=== PATIENT | female | born 1945 | race Caucasian/White ===

== ENCOUNTER → 2016-11-27 | Outpatient (CLI) | payer MEDICARE, OTHER ==
[~2016-11-27] MED LIST: ADVA250A INH; ALBU0.08 NEB; AMLO5TAB2 PO; ASPI1TAB69 PO; CITA20TA4 PO; CYAN1000P IM; DICL1GEL TOPICAL; GABA300C5 PO; GINS100C2 PO; LOVA40TA PO; METO50TA PO; MULT1TAB84 PO; NITR0.4S SL; OMEP40CA2 PO; TIOT12.9 INH; TIOT1AER2 INH
--- NOTE | 2016-12-02 10:13 | RSPPFT ---
DATE OF PROCEDURE: 11/27/16 COMMENTS: Spirometry with FVC of 2.2 predicted 2.9, FEV1 of 1.1 predicted 2.2, FEV1/FVC ratio 51% predicted 77%. No significant changes noted post-bronchodilator acutely. IMPRESSION: On the basis of the above, patient has a moderately severe obstructive lung defect.
== END ==
LOC: HRSP 11-04 12:05
PROVIDERS: ATTEND Family Medicine
DX: J45.909 Unspecified asthma, uncomplicated (principal)
CPT/HCPCS: 94060

== ENCOUNTER 2017-08-28 10:25 | Inpatient (IN) | payer MEDICARE, OTHER ==
[2017-08-28] VITALS (9 sets, daily range): BP systolic 110–144; BP diastolic 55–78; PULSE 61–79; RESP 14–18; TEMP 97.8–98.1; O2SAT 94–97
[~2017-08-28] VITALS: Ht 167.6 cm; Wt 86.0 kg
[~2017-08-28 10:25] MED LIST changes: +MELO15TA20 PO; +MELO7.5T27 PO; -TIOT12.9 INH
--- NOTE | 2017-08-28 11:07 | PD ---
HPI Chief Complaint: Neuro Symptoms/ Deficits Time Seen by Provider: 10:58 Travel History International Travel<30 days: No Contact w/Intl Traveler<30days: No Traveled to known affect area: No History of Present Illness HPI ONGOING INTERMITTENTLY SINCE THURSDAY IS A TINGLY SENSATION TO RIGHT UE, ALONG WITH "FACIAL DROOP" PER DAUGHTER, WHICH RESOLVED, BUT THE TINGLY SENSATION TO RUE HAS BECOME MORE FREQUENT. NO SLURRED SPEECH. PATIENT SEEN AT URGENT CARE 3 DAYS AGO AND DX WITH PNA AND GIVEN LEVAQUIN TO TREAT. PATIENT ALSO STATES RLE PAIN/TINGLY SENSATION WELL PATIENT STATES THAT HER COUGH/RESPIRATORY SYMPTOMS ARE IMPROVING BUT NOT HER RIGHT SIDED TINGLING SENSATIONS THAT HAVE CONTINUED TO OCCUR INTERMITTENTLY AND NON SUSTAINED.....PATIENT ABLE TO AMBULATE WITH ASSISTANCE.PER DAUGHTER DURING THESE SYMPTOMS OF TINGLING, THE PATIENT ALSO BECOMES CONFUSED, SEEMS TO HAVE A HARD TIME FINDING WORDS, NO SLURRED SPEECH NOTED. SEEN BY PCP AND SENT TO ER FOR TIA WORKUP/ADMISSION Past Medical History Hyperlipidemia CAD HTN COPD Vitamin B12 deficiency secondary to gastric bypass GERD Esophageal dysmotility (via gastric emptying study 2015) Surgeries Coronary stent - 2008 Gastric bypass - 1998 Right knee joint replacement - 2002 Right lower extremity venous stripping Pacemaker PFSH Past Medical History Hx Anticoagulant Therapy: Yes (asa) Arthritis: Yes Asthma: Yes Anxiety: Yes Depression: Yes Cancer: No Cardiac Catheterization: Yes Cardiovascular Problems: Yes (CAD) High Cholesterol: Yes Chest Pain: Yes Cerebrovascular Accident: Yes (? TIA) Coronary Artery Disease: Yes Diabetes: No Diminished Hearing: No Endocrine: No Gastrointestinal Disorders: No GERD: Yes Genitourinary: No Hypertension: Yes Immune Disorder: No Musculoskeletal: No Neurologic: No Psychiatric: Yes Reproductive: No Respiratory: No Myocardial Infarction: No : 5 Para: 2 Ectopic : Yes Past Surgical History Abdominal Surgery: Yes (GASTRIC BYPASS) Appendectomy: Yes Cardiac Surgery: Yes (CARDIAC STENT ) Cholecystectomy: Yes Coronary Stent: Yes (X1) Gynecologic Surgery: Yes (ECTOPIC PREG. SURGERY) Social History Alcohol Use: No Tobacco Use: No Substance Use: No Allergies-Medications (Allergen,Severity, Reaction): Coded Allergies: lisinopril (Unverified Allergy, Severe, 08/28/17) Reported Meds & Prescriptions Reported Meds & Active Scripts Active Citalopram (Citalopram Hydrobromide) 20 Mg Tab 20 Mg PO DAILY Albuterol Neb (Albuterol Sulfate) 2.5 Mg/3 Ml Neb 2.5 Mg NEB Q4HR NEB PRN Cyanocobalamin Inj (Cyanocobalamin) 1,000 Mcg/Ml Inj 1,000 Mcg IM Q30D Metoprolol Tartrate 50 Mg Tab 50 Mg PO BID Amlodipine (Amlodipine Besylate) 5 Mg Tab 5 Mg PO DAILY Reported Levaquin (Levofloxacin) 750 Mg Tablet 750 Mg PO DAILY Aspirin 81 Mg Chew 81 Mg CHEW DAILY Multiple Vitamin 1 Tab 1 Tab PO DAILY Lovastatin 40 Mg Tab 40 Mg PO DAILY Nitrostat SL (Nitroglycerin) 0.4 Mg Subl 0.4 Mg SL DIRECTED PRN ONE TABLET UNDER THE TONGUE NEEDED FOR CHEST PAIN, MAY REPEAT EVERY FIVE MINUTES FOR A TOTAL OF 3 DOSES OR CALL 911 IF NO RELIEF Review of Systems Except as stated in HPI: all other systems reviewed are Neg General / Constitutional: No: Fever Eyes: No: Visual changes HENT: No: Headaches Cardiovascular: No: Chest Pain or Discomfort Respiratory: No: Shortness of Breath Gastrointestinal: No: Abdominal Pain Genitourinary: No: Dysuria Musculoskeletal: No: Pain Skin: No Rash Neurologic: Positive: Paresthesia Psychiatric: No: Depression Endocrine: No: Polydipsia Hematologic/Lymphatic: No: Easy Bruising Physical Exam Narrative GENERAL: SKIN: Warm and dry. HEAD: Atraumatic. Normocephalic. EYES: Pupils equal and round. No scleral icterus. No injection or drainage. ENT: No nasal bleeding or discharge. Mucous membranes pink and moist. NECK: Trachea midline. No JVD. CARDIOVASCULAR: Regular rate and rhythm. RESPIRATORY: No accessory muscle use. Clear to auscultation. Breath sounds equal bilaterally. GASTROINTESTINAL: Abdomen soft, non-tender, nondistended. MUSCULOSKELETAL: Extremities without clubbing, cyanosis, or edema. No obvious deformities. NEUROLOGICAL: Awake and alert. No obvious cranial nerve deficits. Motor grossly within normal limits. Five out of 5 muscle strength in the arms and legs (RIGHT SIDED DECREASED ROM LARGELY DUE TO PAIN AND DISCOMFORT). Normal speech. PSYCHIATRIC: Appropriate mood and affect; insight and judgment normal. Data Data Last Documented VS Vital Signs Date Time Temp Pulse Resp B/P (MAP) Pulse Ox O2 Delivery O2 Flow Rate FiO2 08/28/17 11:18 61 16 114/55 (74) 96 08/28/17 10:28 97.8 Orders Orders Electrocardiogram (08/28/17 11:11) Complete Blood Count With Diff (08/28/17 11:11) Comprehensive Metabolic Panel (08/28/17 11:11) B-Type Natriuretic Peptide (08/28/17 11:11) Troponin I (08/28/17 11:11) Act Partial Throm Time (Ptt) (08/28/17 11:11) Prothrombin Time / Inr (Pt) (08/28/17 11:11) Chest, Single Ap (08/28/17 11:11) Ct Brain W/O Iv Contrast(Rout) (08/28/17 11:11) Ecg Monitoring (08/28/17 11:11) Iv Access Insert/Monitor (08/28/17 11:11) Oximetry (08/28/17 11:11) Sodium Chloride 0.9% Flush (Ns Flush) (08/28/17 11:15) Us Leg Venous Doppler (08/28/17 11:11) Admit Order (Ed Use Only) (08/28/17 14:26) Labs Laboratory Tests Test 08/28/17 11:30 White Blood Count 3.8 TH/MM3 Red Blood Count 4.47 MIL/MM3 Hemoglobin 12.7 GM/DL Hematocrit 38.4 % Mean Corpuscular Volume 85.9 FL Mean Corpuscular Hemoglobin 28.5 PG Mean Corpuscular Hemoglobin Concent 33.2 % Red Cell Distribution Width 14.2 % Platelet Count 166 TH/MM3 Mean Platelet Volume 9.3 FL Neutrophils (%) (Auto) 68.6 % Lymphocytes (%) (Auto) 21.0 % Monocytes (%) (Auto) 9.6 % Eosinophils (%) (Auto) 0.7 % Basophils (%) (Auto) 0.1 % Neutrophils # (Auto) 2.6 TH/MM3 Lymphocytes # (Auto) 0.8 TH/MM3 Monocytes # (Auto) 0.4 TH/MM3 Eosinophils # (Auto) 0.0 TH/MM3 Basophils # (Auto) 0.0 TH/MM3 CBC Comment DIFF FINAL Differential Comment Prothrombin Time 10.5 SEC Prothromb Time International Ratio 1.0 RATIO Activated Partial Thromboplast Time 24.0 SEC Blood Urea Nitrogen 22 MG/DL Creatinine 0.78 MG/DL Random Glucose 89 MG/DL Total Protein 6.7 GM/DL Albumin 3.4 GM/DL Calcium Level 8.4 MG/DL Alkaline Phosphatase 94 U/L Aspartate Amino Transf (AST/SGOT) 26 U/L Alanine Aminotransferase (ALT/SGPT) 15 U/L Total Bilirubin 0.4 MG/DL Sodium Level 138 MEQ/L Potassium Level 4.7 MEQ/L Chloride Level 102 MEQ/L Carbon Dioxide Level 28.7 MEQ/L Anion Gap 7 MEQ/L Estimat Glomerular Filtration Rate 72 ML/MIN Troponin I 0.27 NG/ML B-Type Natriuretic Peptide 326 PG/ML [facility] Medical Decision Making Medical Screen Exam Complete: Yes Emergency Medical Condition: Yes Medical Record Reviewed: Yes Interpretation(s) PACED RHYTHM, NONSPEC STT CHANGES Differential Diagnosis TIA V CVA V DVT V ATYPICAL STEMI V NEUROPATHY V RADICULOPATHY Narrative Course le edema is neg for dvt per ultrasound, ct brain neg ich nor any subacute findings considering symptoms going on for several days....negative troponin and nondiagnostic ekg....patient will be admitted for further evaluation Diagnosis Primary Impression: RIGHT SIDED PARESTHESIA R/O TIA Admitting Information Admitting Physician Requests: Observation Scripts Azithromycin (Azithromycin) 500 Mg Tab 500 MG PO DAILY for Infection, #5 TAB 0 Refills Prov: Brian Menard MD, R3 09/01/17 Ipratropium-Albuterol Neb (Duoneb) 0.5-2.5 Mg/3 Ml Neb 1 NEBULE INH Q4HR NEB for Breathing Treatment, #180 NEBULE 0 Refills Prov: Brian Menard MD, R3 09/01/17 Prednisone (Prednisone) 20 Mg Tab 20 MG PO BID, #14 TAB 0 Refills Prov: Brian Menard MD, R3 09/01/17 Tiotropium Inh (Spiriva Respimat Inh) 1.25 Mcg/Act Aero 2 PUFF INH DAILY for Asthma Management, #1 INHALER 5 Refills 1.25 mcg = 1 inhalation Prov: Brian Menard MD, R3 09/01/17 Fluticasone-Salmeterol Inh (Advair Diskus Inh) 250-50 Mcg/Blist Aer 1 PUFF INH BID, #1 INHALER 5 Refills Rinse mouth after use. Prov: Brian Menard MD, R3 09/01/17 Robert Lainez MD Aug 28, 2017 11:07
[2017-08-28] MEDS ORDERED: SODIUM CHLORIDE 0.9% FLUSH 10 ML FLUSH IVF PRN (11:15)
[2017-08-28] MEDS ORDERED: CITA20TA4 PO (11:23)
[2017-08-28] MEDS ORDERED: LEVA750T9 PO (11:23)
[2017-08-28] MEDS ORDERED: ADVA250A INH (11:23)
[2017-08-28] MEDS ORDERED: ASPI-516 CHEW (11:23)
[2017-08-28] MEDS ORDERED: MULTTAB67 PO (11:23)
--- NOTE | 2017-08-28 11:40 | RADRPT ---
EXAM DATE/TIME: 08/28/2017 11:17 [facility] COMPARISON: No previous studies available for comparison. INDICATIONS : Right side pain x 1 week. MEDICAL HISTORY : pneumonia SURGICAL HISTORY : Coronary artery stent. Pacemaker. ENCOUNTER: Initial ACUITY: 1 week PAIN SCORE: 8/10 LOCATION: Right chest FINDINGS: Pacemaker left chest. Minimal constant cardiomegaly. No infiltrate. No pneumothorax. No rib fract ure. CONCLUSION: Pacer otherwise negative. Hector Rodríguez MD FACR on August 28, 2017 at 11:37 Board Certified Radiologist. This report was verified electronically.
[2017-08-28 11:48] LABS: AUTOMATED NEUTROPHIL # 2.6 TH/MM3 (1.8-7.7); BASOPHIL % 0.1 % (0.0-2.0); EOSINOPHIL % 0.7 % (0.0-4.0); HEMATOCRIT 38.4 % (35.0-46.0); HEMOGLOBIN 12.7 GM/DL (11.6-15.3); LYMPHOCYTE # 0.8 TH/MM3 (1.0-4.8); MEAN CELL VOLUME 85.9 FL (80.0-100.0); MEAN CORPUSCULAR HEMOGLOBIN 28.5 PG (27.0-34.0); MEAN CORPUSCULAR HGB CONC 33.2 % (32.0-36.0); MEAN PLATELET VOLUME 9.3 FL (7.0-11.0); MONO % 9.6 % (0.0-8.0); MONOCYTE # 0.4 TH/MM3 (0-0.9); NEUT % 68.6 % (16.0-70.0); PLATELET COUNT 166 TH/MM3 (150-450); RED BLOOD COUNT 4.47 MIL/MM3 (4.00-5.30); RED CELL DISTRIBUTION WIDTH 14.2 % (11.6-17.2); WHITE BLOOD COUNT 3.8 TH/MM3 (4.0-11.0)
[2017-08-28 11:58] LABS: PROTHROMBIN TIME - PATIENT 10.5 SEC (9.8-11.6)
--- NOTE | 2017-08-28 12:07 | RADRPT ---
EXAM DATE/TIME: 08/28/2017 11:31 [facility] COMPARISON: No previous studies available for comparison. INDICATIONS : Right leg pain and swelling. MEDICAL HISTORY : Hypercholesterolemia. Hypertension. Gastroesophageal reflux disease. Coronary artery disease. Darell darnell bypass. SURGICAL HISTORY : Appendectomy. Cholecystectomy. Cardiac stent. Ectopic surgery. Right total knee replaceme nt. ENCOUNTER: Initial ACUITY: 1 day PAIN SCORE: 0/10 LOCATION: Right arm. TECHNIQUE: Venous ultrasound of the leg was performed from the inguinal ligament to the proximal calf. Real-luci e, color Doppler and spectral tracing, compression and augmentation techniques were used. FINDINGS: There is normal compressibility of the deep venous system from the inguinal region to the proximal ca lf. No echogenic clot is seen in the lumen of the common femoral, femoral, popliteal, and posterior tibial veins. There is a normal response of the venous system to proximal and distal augmentation an d respiration. CONCLUSION: Negative for deep venous thrombosis. Hector Rodríguez MD FACR on August 28, 2017 at 12:04 Board Certified Radiologist. This report was verified electronically.
[2017-08-28 12:12] LABS: ALBUMIN 3.4 GM/DL (3.4-5.0); ALT (GPT) 15 U/L (10-53); AST (GOT) 26 U/L (15-37); BICARBONATE 28.7 MEQ/L (21.0-32.0); BLOOD UREA NITROGEN 22 MG/DL (7-18); CALCIUM 8.4 MG/DL (8.5-10.1); CHLORIDE 102 MEQ/L (98-107); CREATININE 0.78 MG/DL (0.50-1.00); GLOMERULAR FILTRATION RATE 72 ML/MIN (>89); GLUCOSE,RANDOM 89 MG/DL (74-106); SODIUM (NA) 138 MEQ/L (136-145)
[2017-08-28 12:16] LABS: ALKALINE PHOSPHATASE 94 U/L (45-117); TOTAL BILIRUBIN ADULT 0.4 MG/DL (0.2-1.0); TOTAL PROTEIN 6.7 GM/DL (6.4-8.2); TROPONIN I 0.27 NG/ML (0.02-0.05)
--- NOTE | 2017-08-28 12:30 | RADRPT ---
EXAM DATE/TIME: 08/28/2017 12:07 [facility] COMPARISON: No previous studies available for comparison. INDICATIONS : Dizziness. RADIATION DOSE: 56.35 CTDIvol (mGy) MEDICAL HISTORY : Cardiovascular disease. Cardiovascular disease Hypertension. SURGICAL HISTORY : Appendectomy. Cholecystectomy. ENCOUNTER: Initial ACUITY: 1 day PAIN SCALE: 0/10 LOCATION: cranial TECHNIQUE: Multiple contiguous axial images were obtained of the head. Using automated exposure control and adj ustment of the mA and/or kV according to patient size, radiation dose was kept as low as reasonably a chievable to obtain optimal diagnostic quality images. DICOM format image data is available electro nically for review and comparison. FINDINGS: CEREBRUM: The ventricles are normal for age. No evidence of midline shift, mass lesion, hemorrhage or acute in farction. No extra-axial fluid collections are seen. POSTERIOR FOSSA: The cerebellum and brainstem are intact. The 4th ventricle is midline. The cerebellopontine angle i s unremarkable. EXTRACRANIAL: The visualized portion of the orbits is intact. SKULL: The calvaria is intact. No evidence of skull fracture. CONCLUSION: No acute disease. Hector Rodríguez MD FACR on August 28, 2017 at 12:27 Board Certified Radiologist. This report was verified electronically.
--- NOTE | 2017-08-28 14:26 | HHI.HP ---
[facility] Service Family Medicine Primary Care Physician Dr. Sherman Admission Diagnosis Diagnoses: International Travel<30 Days: No Contact w/Intl Traveler<30days: No Known Affected Area: No History of Present Illness Patient is a 72-year-old female with history significant for CAD, COPD. Present here today after seeing her PCP in the clinic due to concerns for possible TIA. History obtained from both daughter and patient. On 08/30 patient developed right shoulder pain that radiated to the right side of abdomen right leg and resolved after 5 minutes. Associated with nausea but no vomiting. She felt like she was going to pass out but did not. Daughter did give her nitroglycerin which caused the headache after the event. After the visit, she was completely asymptomatic but continued to have right shoulder pain that radiated to her hand. The same symptoms reoccurred the following day and again lasted for 5 minutes. However on 08/25, patient had recurrence of the same symptoms but this lasted for 30 minutes and was associated with confusion. Daughter also reported right lower face drooping very mildly and slightly slurred speech. There was no associated vision changes. Symptoms completely resolved after this episode. During this episode, she did go to the ED but was diagnosed with pneumonia and given Levaquin. Last reported episode was yesterday but no episodes today. No associated chest pain, SOB, or vomiting. Does endorse increased fatigue during usual activities around the house. Review of Systems Constitutional: DENIES: Fever, Chills Endocrine: COMPLAINS OF: Abnorml menstrual pattern (set up to see AUDIO VISUAL [employer] DIRECTOR soon) Eyes: DENIES: Blurred vision Ears, nose, mouth, throat: DENIES: Throat pain, Running Nose Respiratory: COMPLAINS OF: Cough, DENIES: Shortness of breath Cardiovascular: DENIES: Chest pain Gastrointestinal: COMPLAINS OF: Abdominal pain, Nausea, DENIES: Constipation, Diarrhea, Vomiting Genitourinary: DENIES: Dysuria Integumentary: DENIES: Rash Neurologic: DENIES: Speech Problems Psychiatric: DENIES: Depression, Suicidal Ideation Past Family Social History Past Medical History Hyperlipidemia CAD (nuclear stress test December 2015 normal) HTN COPD * PFTs 12/02/16: FEV1/FVC ratio 51% and no changes post-bronchodilator --> moderately severe obstructive lung defect Vitamin B12 deficiency secondary to gastric bypass Overactive bladder GERD Esophageal dysmotility (via gastric emptying study 2015) Asthma Depression CARMENZA Past Surgical History Surgeries Coronary stent - 2008 Gastric bypass - 1998 Right knee joint replacement - 2002 Right lower extremity venous stripping Pacemaker Reported Medications Reported Meds & Active Scripts Active Citalopram (Citalopram Hydrobromide) 20 Mg Tab 20 Mg PO DAILY Spiriva Respimat Inh (Tiotropium Inh) 1.25 Mcg/Act Aero 2 Puff INH DAILY 1.25 mcg = 1 inhalation Albuterol Neb (Albuterol Sulfate) 2.5 Mg/3 Ml Neb 2.5 Mg NEB Q4HR NEB PRN Cyanocobalamin Inj (Cyanocobalamin) 1,000 Mcg/Ml Inj 1,000 Mcg IM Q30D Metoprolol Tartrate 50 Mg Tab 50 Mg PO BID Amlodipine (Amlodipine Besylate) 5 Mg Tab 5 Mg PO DAILY Advair Diskus Inh (Fluticasone-Salmeterol Inh) 250-50 Mcg/Blist Aer 1 Puff INH BID Rinse mouth after use. Reported Levaquin (Levofloxacin) 750 Mg Tablet 750 Mg PO DAILY Aspirin 81 Mg Chew 81 Mg CHEW DAILY Multiple Vitamin 1 Tab 1 Tab PO DAILY Lovastatin 40 Mg Tab 40 Mg PO DAILY Nitrostat SL (Nitroglycerin) 0.4 Mg Subl 0.4 Mg SL DIRECTED PRN ONE TABLET UNDER THE TONGUE NEEDED FOR CHEST PAIN, MAY REPEAT EVERY FIVE MINUTES FOR A TOTAL OF 3 DOSES OR CALL 911 IF NO RELIEF Allergies: Coded Allergies: lisinopril (Unverified Allergy, Severe, 08/28/17) Family History Father: from war, healthy family Mother: at 88, Alzheimer's Brother - healthy 2 Children - healthy Social History Lives in [place] with , daughter, and son-in-law EtOH - denies Tobacco - quit 30 years ago Illicit Drugs - denies Physical Exam Vital Signs Vital Signs Date Time Temp Pulse Resp B/P (MAP) Pulse Ox O2 Delivery O2 Flow Rate FiO2 08/28/17 11:18 61 16 114/55 (74) 96 08/28/17 10:28 97.8 74 16 110/74 (86) 97 Physical Exam GENERAL: This is a well-nourished, well-developed patient, in no apparent distress. Resting comfortably in bed and speaking in complete sentences. SKIN: No rashes, ecchymoses or lesions. Cool and dry. HEAD: Atraumatic. Normocephalic. No temporal or scalp tenderness. EYES: Pupils equal round and reactive. Extraocular motions intact. No scleral icterus. No injection or drainage. ENT: Throat without erythema, tonsillar hypertrophy or exudate. Uvula midline. Airway patent. NECK: No JVD or lymphadenopathy. Supple, nontender CARDIOVASCULAR: Regular rate and rhythm without murmurs, gallops, or rubs. RESPIRATORY: Coarse breath sounds and wheezing bilaterally. GASTROINTESTINAL: Abdomen soft, non-tender, nondistended. No hepato-splenomegaly , or palpable masses. No guarding. MUSCULOSKELETAL: Extremities without clubbing, cyanosis, or edema.No calf tenderness. * No obvious swelling, ecchymosis, erythema right shoulder. Pain with palpation around shoulder. No crepitus present. NEUROLOGICAL: Awake and alert. Cranial nerves II through XII intact (excluding CN XI). [id number] normal. Motor and sensory grossly within normal limits. Five out of 5 muscle strength in all muscle groups. Normal speech. Laboratory Laboratory Tests Test 08/28/17 11:30 White Blood Count 3.8 Red Blood Count 4.47 Hemoglobin 12.7 Hematocrit 38.4 Mean Corpuscular Volume 85.9 Mean Corpuscular Hemoglobin 28.5 Mean Corpuscular Hemoglobin Concent 33.2 Red Cell Distribution Width 14.2 Platelet Count 166 Mean Platelet Volume 9.3 Neutrophils (%) (Auto) 68.6 Lymphocytes (%) (Auto) 21.0 Monocytes (%) (Auto) 9.6 Eosinophils (%) (Auto) 0.7 Basophils (%) (Auto) 0.1 Neutrophils # (Auto) 2.6 Lymphocytes # (Auto) 0.8 Monocytes # (Auto) 0.4 Eosinophils # (Auto) 0.0 Basophils # (Auto) 0.0 CBC Comment DIFF FINAL Differential Comment Prothrombin Time 10.5 Prothromb Time International Ratio 1.0 Activated Partial Thromboplast Time 24.0 Blood Urea Nitrogen 22 Creatinine 0.78 Random Glucose 89 Total Protein 6.7 Albumin 3.4 Calcium Level 8.4 Alkaline Phosphatase 94 Aspartate Amino Transf (AST/SGOT) 26 Alanine Aminotransferase (ALT/SGPT) 15 Total Bilirubin 0.4 Sodium Level 138 Potassium Level 4.7 Chloride Level 102 Carbon Dioxide Level 28.7 Anion Gap 7 Estimat Glomerular Filtration Rate 72 Troponin I 0.27 B-Type Natriuretic Peptide 326 Result Diagram: 08/28/17 1130 08/28/17 1130 Imaging Last Impressions Lower Extremity Ultrasound 08/28/17 1111 Signed Impressions: Service Date/Time: Monday, August 28, 2017 11:31 - CONCLUSION: Negative for deep venous thrombosis. Hector Rodríguez MD FACR Head CT 08/28/17 1111 Signed Impressions: Service Date/Time: Monday, August 28, 2017 12:07 - CONCLUSION: No acute disease. Hector Rodríguez MD FACR Chest X-Ray 08/28/17 1111 Signed Impressions: Service Date/Time: Monday, August 28, 2017 11:17 - CONCLUSION: Pacer otherwise negative. Hector Rodríguez MD FACR Caprini VTE Risk Assessment Caprini VTE Risk Assessment: Mod/High Risk (score >= 2) VTE Pharm Contraindication: SCDs until evaluation of stroke is completed Caprini Risk Assessment Model Point Value = 1 Point Value = 2 Point Value = 3 Point Value = 5 Age 41-60 Minor surgery BMI > 25 kg/m2 Swollen legs Varicose veins or History of unexplained or recurrent spontaneous Oral contraceptives or hormone replacement Sepsis (< 1 month) Serious lung disease, including pneumonia (< 1 month) Abnormal pulmonary function Acute myocardial infarction Congestive heart failure (< 1 month) History of inflammatory bowel disease Medical patient at bed rest Age 61-74 Arthroscopic surgery Major open surgery (> 45 min) Laparoscopic surgery (> 45 min) Malignancy Confined to bed (> 72 hours) Immobilizing plaster cast Central venous access Age >= 75 History of VTE Family history of VTE Factor V Leiden Prothrombin [id number] Lupus anticoagulant Anticardiolipin antibodies Elevated serum homocysteine Heparin-induced thrombocytopenia Other congenital or acquired thrombophilia Stroke (< 1 month) Elective arthroplasty Hip, pelvis, or leg fracture Acute spinal cord injury (< 1 month) Prophylaxis Regimen Total Risk Factor Score Risk Level Prophylaxis Regimen 0-1 Low Early ambulation 2 Moderate Order ONE of the following: *Sequential Compression Device (SCD) *Heparin 5000 units SQ BID 3-4 Higher Order ONE of the following medications: *Heparin 5000 units SQ TID *Enoxaparin/Lovenox 40 mg SQ daily (WT < 150 kg, CrCl > 30 mL/min) *Enoxaparin/Lovenox 30 mg SQ daily (WT < 150 kg, CrCl > 10-29 mL/min) *Enoxaparin/Lovenox 30 mg SQ BID (WT < 150 kg, CrCl > 30 mL/min) AND/OR *Sequential Compression Device (SCD) 5 or more Highest Order ONE of the following medications: *Heparin 5000 units SQ TID (Preferred with Epidurals) *Enoxaparin/Lovenox 40 mg SQ daily (WT < 150 kg, CrCl > 30 mL/min) *Enoxaparin/Lovenox 30 mg SQ daily (WT < 150 kg, CrCl > 10-29 mL/min) *Enoxaparin/Lovenox 30 mg SQ BID (WT < 150 kg, CrCl > 30 mL/min) AND *Sequential Compression Device (SCD) Assessment and Plan Assessment and Plan 72-year-old female with history significant for CAD, HTN. Admitted for TIA evaluation. Also concern for possible COPD exacerbation Code Status full-does not want sustained life prolonging measures after the emergency situation Problem List: (1) TIA (transient ischemic attack) ICD Codes: G45.9 - Transient cerebral ischemic attack, unspecified Plan: Symptoms of right-sided pain, nausea, presyncope for her last week that has now increased in duration from 5 minutes to 30 minutes before complete resolution. Episode from 08/25 was associated with possible slurred speech and facial droop. No focal deficits found on physical exam. Neurologically patient is intact. -Head CT unremarkable. -Neuro check -PT consulted -MRI/MRA and echo ordered Medications: * Aspirin * Pravastatin (2) COPD (chronic obstructive pulmonary disease) ICD Codes: J44.9 - Chronic obstructive pulmonary disease, unspecified Status: Acute Plan: Patient with history of moderate to severe COPD. Recently started on Levaquin for pneumonia. Lungs with very coarse sounds bilaterally. Increased with worsening generalized fatigue. Adequate O2 saturation on room air. Symptoms of right shoulder pain may also be related to referred pain from pneumonia. Also with exam findings patient may be having an underlying COPD exacerbation as well. -No leukocytosis, WBC mildly depressed at 3.8. No left shift -Chest x-ray unremarkable -Repeat chest x-ray AP and lateral tomorrow -incentive spirometry Medications: * Continue Levaquin (08/25- * Start prednisone 40 mg daily * Albuterol nebulizer * Continue home Symbicort and Spiriva (3) Shoulder pain, right ICD Codes: M25.511 - Pain in right shoulder Plan: History of shoulder pain in relation to possible TIA symptoms is unclear. Especially since patient has symptoms outside of episodes. Physical exam significant for pain with palpation. May be MSK related. However symptoms may be referred from possible pneumonia. -Shoulder x-ray ordered. -If shoulder pain persists after evaluation of TIA, may consider evaluation of the neck as an outpatient (4) Coronary artery disease ICD Codes: I25.10 - Coronary artery disease Status: Acute Plan: History of CAD with a stent in place. Patient also has an atrial pacemaker. No defibrillator. -Initial EKG unremarkable except for isolated ST elevation in V1. Not present in the other leads. Troponin is slightly elevated at 0.27 but there is no associated EKG changes or chest pain. -We will trend troponins and EKG -Cardiac telemetry -Repeat BNP as well. Patient does not have lower extremity edema but does become more fatigued with routine activities. -See medications above (5) Hypertension ICD Codes: I10 - Hypertension Status: Acute Plan: We'll allow for permissive hypertension 24 hours. -Resume home metoprolol 08/29 (6) Nutrition, metabolism, and development symptoms ICD Codes: R63.8 - Other symptoms and signs concerning food and fluid intake Plan: Diet: Heart healthy after the patient passes bedside swallow Fluids: PO hydration Electrolytes: Unremarkable, continue to monitor DVT prophylaxis: SCDs until TIA evaluation complete GI prophylaxis: H2 magdalena due to steroid use Problem Qualifiers (1) COPD (chronic obstructive pulmonary disease): Qualified Codes: J44.1 - Chronic obstructive pulmonary disease with (acute) exacerbation Ely Packer MD, R3 Aug 28, 2017 14:26
[2017-08-28] MEDS ORDERED: SODIUM CHLORIDE 0.9% FLUSH 10 ML FLUSH IV FLUSH PRN ×2 (15:00→15:45)
[2017-08-28] MEDS ORDERED: SENNOSIDES 8.6 MG TAB PO PRN ×2 (15:45)
[2017-08-28] MEDS ORDERED: ACETAMINOPHEN/HYDROcodone 325 MG/5 MG TAB PO PRN (15:45)
[2017-08-28] MEDS ORDERED: NALOXONE HCL 0.4 MG/ML AMP IV PUSH PRN (15:45)
[2017-08-28] MEDS ORDERED: MAGNESIUM HYDROXIDE SUSP 30 ML CUP PO PRN ×2 (15:45)
[2017-08-28] MEDS ORDERED: ACETAMINOPHEN 325 MG TAB PO PRN (15:45)
[2017-08-28] MEDS ORDERED: ACETAMINOPHEN/HYDROcodone 325 MG/7.5 MG TAB PO PRN (15:45)
[2017-08-28] MEDS ORDERED: ONDANSETRON HCL 4 MG/2 ML VIAL IVP PRN (15:45)
[2017-08-28] MEDS ORDERED: LACTULOSE SYRUP 20 GM/30 ML CUP PO PRN ×2 (15:45)
[2017-08-28] MEDS ORDERED: BISACODYL 10 MG SUPP RECTAL PRN ×2 (15:45)
[2017-08-28] MEDS ORDERED: RESP: ALBUTEROL 2.5 MG/3 ML NEB (PRN) INH (15:45)
--- NOTE | 2017-08-28 17:22 | RADRPT ---
EXAM DATE/TIME: 08/28/2017 16:57 [facility] COMPARISON: No previous studies available for comparison. INDICATIONS : Pain with no known injury. MEDICAL HISTORY : None. SURGICAL HISTORY : Pacemaker. ENCOUNTER: Initial ACUITY: 4 - 6 days PAIN SCORE: 7/10 LOCATION: Right Lateral Shoulder. FINDINGS: \There are degenerative changes AC joint subacromial spurring. Lung apex is clear. Pacemaker left c hest. CONCLUSION: Degenerative changes. Hector Rodríguez MD FACR on August 28, 2017 at 17:18 Board Certified Radiologist. This report was verified electronically.
[2017-08-28] MEDS: RESP: ALBUTEROL 2.5 MG/IPRATROPIUM 0.5 MG NEB (SCH) INH ×2 (17:27→21:23)
[2017-08-28] MEDS: predniSONE 20 MG TAB PO SCH (17:29)
[2017-08-28] MEDS ORDERED: DEXTROSE 50% IN WATER 50 ML VIAL(D50) IV PUSH PRN (17:30)
[2017-08-28] MEDS ORDERED: LEVOFLOXACIN 750 MG TAB PO ONE (17:30)
[2017-08-28] MEDS ORDERED: GLUCAGON 1 MG/ML VIAL OTHER PRN (17:30)
[2017-08-28] MEDS ORDERED: PILL SPLITTER OTHER PRN (18:15)
[2017-08-28] MEDS ORDERED: METOPROLOL TARTRATE 50 MG TAB PO SCH (21:00)
[2017-08-28] MEDS ORDERED: SODIUM CHLORIDE 0.9% FLUSH 10 ML FLUSH IV FLUSH SCH (21:00)
[2017-08-28] MEDS ORDERED: DOCUSATE SODIUM 50 MG/SENNA 8.6 MG TAB PO SCH (21:00)
[2017-08-28] MEDS: INSULIN ASPART SUPPLEMENTAL SCALE SQ SCH (21:00)
[2017-08-28] MEDS: DOCUSATE SODIUM 50 MG/SENNA 8.6 MG TAB PO SCH (21:00)
[2017-08-28] MEDS: BUDESONIDE-FORMOTEROL 160/4.5 MCG INHALER INH SCH (22:44)
[2017-08-28] MEDS: SODIUM CHLORIDE 0.9% FLUSH 10 ML FLUSH IV FLUSH SCH (22:45)
[2017-08-28] MEDS: FAMOTIDINE 20 MG TAB PO SCH (22:46)
[2017-08-29] VITALS (12 sets, daily range): BP systolic 109–136; BP diastolic 52–78; PULSE 64–90; RESP 17–20; TEMP 97.9–98.8; O2SAT 95–98
[2017-08-29 03:01] LABS: CHOLESTEROL 144 MG/DL (120-200); TRIGLYCERIDES 52 MG/DL (42-150)
[2017-08-29] MEDS: RESP: ALBUTEROL 2.5 MG/IPRATROPIUM 0.5 MG NEB (SCH) INH ×4 (03:01→20:05)
[2017-08-29 03:05] LABS: CHOLESTEROL/ HDL RATIO 3.43 RATIO; HDL CHOLESTEROL 41.9 MG/DL (40.0-60.0); LDL CHOLESTEROL 92 MG/DL (0-99); TROPONIN I 0.26 NG/ML (0.02-0.05)
--- NOTE | 2017-08-29 07:53 | RADRPT ---
EXAM DATE/TIME: 08/29/2017 07:43 [facility] COMPARISON: CHEST PA & LAT, December 28, 2014, 10:43. INDICATIONS : Shortness of breath. MEDICAL HISTORY : Cardiovascular disease. Cardiovascular disease Hypertension. SURGICAL HISTORY : Appendectomy. Appendectomy. Pacemaker. ENCOUNTER: Subsequent ACUITY: 2 days PAIN SCORE: 0/10 LOCATION: Bilateral chest FINDINGS: PA lateral views the chest demonstrate interval placement of a dual-lead cardiac pacer. The heart siz e appears normal. The pulmonary vasculature appears normal. The lungs demonstrate evidence of chronic hyperinflation and there is slight interval increase interstitial prominence identified within the m id and lower lobes without evidence of airspace consolidation. CONCLUSION: Interval placement of a dual-lead cardiac pacer. No evidence of congestive heart failure. The promine nce of the bilateral interstitial lungs within the mid and lower lobes may reflect edema secondary to an infectious process. This can be seen in the setting of viral infection or atypical pneumonia. Coreen Taylor MD on August 29, 2017 at 7:49 Board Certified Radiologist. This report was verified electronically.
[2017-08-29] MEDS: INSULIN ASPART SUPPLEMENTAL SCALE SQ SCH ×4 (08:00→21:00)
[2017-08-29] MEDS: TIOTROPIUM BROMIDE 18 MCG INH INH SCH (09:00)
--- NOTE | 2017-08-29 09:20 | RADRPT ---
EXAM DATE/TIME: 08/29/2017 08:37 [facility] COMPARISON: CT BRAIN W/O CONTRAST, August 28, 2017, 12:07. INDICATIONS : Dizziness. MEDICAL HISTORY : Chronic obstructive pulmonary disease. Cardiovascular disease Hypertension. SURGICAL HISTORY : Coronary artery stent. Gastric bypass. Total knee replacement, right. Medtronic pacemaker. ENCOUNTER: Initial ACUITY: 1 day PAIN SCORE: 0/10 LOCATION: cranial TECHNIQUE: Multiplanar, multisequence MRI of the brain was performed without contrast. FINDINGS: CEREBRUM: The ventricles are normal for age. No evidence of midline shift, mass lesion, hemorrhage or acute in farction. No extraaxial fluid collections are seen. The pituitary gland and suprasellar cistern are normal in configuration. WHITE MATTER: Bilateral periventricular white matter foci of increased T2 signal. POSTERIOR FOSSA: The cerebellum and brainstem are intact. The 4th ventricle is midline. The cerebellopontine angle is unremarkable. The cerebellar tonsils are normal in position. DIFFUSION IMAGING: No focal areas of restricted diffusion are seen. No evidence of acute infarction. EXTRACRANIAL: The visualized portions of the orbits and paranasal sinuses are unremarkable. CONCLUSION: Age-related white matter changes. No evidence of acute abnormality. Coreen Taylor MD on August 29, 2017 at 9:15 Board Certified Radiologist. This report was verified electronically.
[2017-08-29] MEDS: BUDESONIDE-FORMOTEROL 160/4.5 MCG INHALER INH SCH ×2 (10:39→21:50)
[2017-08-29] MEDS: predniSONE 20 MG TAB PO SCH (10:40)
[2017-08-29] MEDS: CITALOPRAM HYDROBROMIDE 20 MG TAB PO SCH (10:40)
[2017-08-29] MEDS: LEVOFLOXACIN 750 MG TAB PO SCH (10:40)
[2017-08-29] MEDS: SODIUM CHLORIDE 0.9% FLUSH 10 ML FLUSH IV FLUSH SCH ×2 (10:40→21:51)
[2017-08-29] MEDS: DOCUSATE SODIUM 50 MG/SENNA 8.6 MG TAB PO SCH ×2 (10:41→21:51)
[2017-08-29] MEDS: METOPROLOL TARTRATE 50 MG TAB PO SCH ×2 (10:41→21:50)
[2017-08-29] MEDS: FAMOTIDINE 20 MG TAB PO SCH ×2 (10:42→21:51)
[2017-08-29] MEDS: ASPIRIN 81 MG CHEW TAB CHEW SCH (10:42)
--- NOTE | 2017-08-29 12:46 | RADRPT ---
EXAM DATE/TIME: 08/29/2017 08:37 [facility] COMPARISON: No previous studies available for comparison. INDICATIONS : Dizziness. MEDICAL HISTORY : Cardiovascular disease Chronic obstructive pulmonary disease. Hypertension. SURGICAL HISTORY : Total knee replacement, right. Coronary artery stent. Gastric bypass. Pacemaker, medtronic ENCOUNTER: Initial ACUITY: 1 day PAIN SCORE: 0/10 LOCATION: cranial Please note a normal MRA of the brain does not entirely exclude the possibility of a small aneurysm, nor the possibility of distal intracranial vessel disease. TECHNIQUE: 3D time of flight MRA was performed. Source images, multiplanar STS MIP, and 3D volume MIP reconstru ctions were reviewed. FINDINGS: There is excellent visualization of the major intracranial arteries out to the second-order branch ve ssels. There is no evidence for aneurysm, vessel truncation or stenosis, and no evidence for vascula r malformation. Patent posterior to indicating artery on the right. CONCLUSION: Brain MRA within normal limits. Louie Rueda MD on August 29, 2017 at 12:41 Board Certified Radiologist. This report was verified electronically.
[2017-08-29] MEDS: PRAVASTATIN SOD 40 MG TAB PO SCH (13:01)
--- NOTE | 2017-08-29 13:08 | HHI.HP ---
[facility] Service Family Medicine Primary Care Physician Unknown Admission Diagnosis Diagnoses: (1) TIA (transient ischemic attack) Diagnosis: Principal (2) COPD (chronic obstructive pulmonary disease) Diagnosis: Principal (3) Shoulder pain, right Diagnosis: Principal (4) Coronary artery disease Diagnosis: Principal (5) Hypertension Diagnosis: Principal (6) Nutrition, metabolism, and development symptoms International Travel<30 Days: No Contact w/Intl Traveler<30days: No Known Affected Area: No History of Present Illness Ms Starr is a 72-year-old female with history significant for CAD, COPD. Presented to the hospital after seeing her PCP in the clinic due to concerns for possible TIA. History obtained from both daughter and patient originally and just pt today. On 08/30 patient developed right shoulder pain that radiated to the right side of abdomen right leg and resolved after 5 minutes. Associated with nausea but no vomiting. She felt like she was going to pass out but did not. Daughter did give her nitroglycerin which caused the headache after the event. After the visit, she was completely asymptomatic but continued to have right shoulder pain that radiated to her hand. The same symptoms reoccurred the following day and again lasted for 5 minutes. However on 08/25, patient had recurrence of the same symptoms but this lasted for 30 minutes and was associated with confusion. Daughter also reported right lower face drooping very mildly and slightly slurred speech. There was no associated vision changes. Symptoms completely resolved after this episode. During this episode, she did go to the ED in [facility] but was diagnosed with pneumonia and given Levaquin. Last reported episode was the day before admission but no episodes today. No associated chest pain, SOB, or vomiting. Does endorse increased fatigue during usual activities around the house. She reported today that she has had increased fatigue for about 2 weeks, she states she has a hard time walking around her house without getting SOB and having to rest. She also states she hasn't done her usual energetic activities for months and wants to improve so she can get back to walking on the beach, etc. She has a nebulizer at home and gets some improvement with that but not as much recently. She had days of headache "all over her head" which she blames for the pain that went down the right side of her body. She denies any pain in her head today, nor pain in her body or neck at all. She reports breathing better now and being able to walk farther here in the hospital- to the bathroom and back which she could not do at home. She did receive po steroids here. Her MRI did not show any new findings or CVA. She had her pacemaker checked before and during her MRI which is evidently the new protocol. Her rhythm and rate are fine currently on her monitor. Her troponins are elevated and have remained so. She does not have renal failure and does have a cardiac history. It is unclear if any of her sxs could be heart related vs lung. It is suggestive of lung problems that she improved so much with po steroids overnight. Review of Systems Other Constitutional: DENIES: Fever, Chills Endocrine: COMPLAINS OF: Abnorml menstrual pattern (set up to see [employer] soon) Eyes: DENIES: Blurred vision Ears, nose, mouth, throat: DENIES: Throat pain, Running Nose Respiratory: COMPLAINS OF: Cough, DENIES: Shortness of breath Cardiovascular: DENIES: Chest pain Gastrointestinal: COMPLAINS OF: Abdominal pain, Nausea, DENIES: Constipation, Diarrhea, Vomiting Genitourinary: DENIES: Dysuria Integumentary: DENIES: Rash Neurologic: DENIES: Speech Problems Psychiatric: DENIES: Depression, Suicidal Ideation Past Family Social History Past Medical History Hyperlipidemia CAD (nuclear stress test December 2015 normal) HTN COPD * PFTs 12/02/16: FEV1/FVC ratio 51% and no changes post-bronchodilator --> moderately severe obstructive lung defect Vitamin B12 deficiency secondary to gastric bypass Overactive bladder GERD Esophageal dysmotility (via gastric emptying study 2015) Asthma Depression CARMENZA Past Surgical History Surgeries Coronary stent - 2008 Gastric bypass - 1998 Right knee joint replacement - 2002 Right lower extremity venous stripping Pacemaker Reported Medications Citalopram (Citalopram Hydrobromide) 20 Mg Tab 20 Mg PO DAILY Spiriva Respimat Inh (Tiotropium Inh) 1.25 Mcg/Act Aero 2 Puff INH DAILY 1.25 mcg = 1 inhalation Albuterol Neb (Albuterol Sulfate) 2.5 Mg/3 Ml Neb 2.5 Mg NEB Q4HR NEB PRN Cyanocobalamin Inj (Cyanocobalamin) 1,000 Mcg/Ml Inj 1,000 Mcg IM Q30D Metoprolol Tartrate 50 Mg Tab 50 Mg PO BID Amlodipine (Amlodipine Besylate) 5 Mg Tab 5 Mg PO DAILY Advair Diskus Inh (Fluticasone-Salmeterol Inh) 250-50 Mcg/Blist Aer 1 Puff INH BID Rinse mouth after use. Allergies: Coded Allergies: lisinopril (Unverified Allergy, Severe, 08/28/17) Active Ordered Medications Levaquin (Levofloxacin) 750 Mg Tablet 750 Mg PO DAILY Aspirin 81 Mg Chew 81 Mg CHEW DAILY Multiple Vitamin 1 Tab 1 Tab PO DAILY Lovastatin 40 Mg Tab 40 Mg PO DAILY Nitrostat SL (Nitroglycerin) 0.4 Mg Subl 0.4 Mg SL DIRECTED PRN ONE TABLET UNDER THE TONGUE NEEDED FOR CHEST PAIN, MAY REPEAT EVERY FIVE MINUTES FOR A TOTAL OF 3 DOSES OR CALL 911 IF NO RELIEF Family History Father: from war, healthy family Mother: at 88, Alzheimer's Brother - healthy 2 Children - healthy Social History Lives in [place] with , daughter, and son-in-law EtOH - denies Tobacco - quit 30 years ago Illicit Drugs - denies Physical Exam Vital Signs Vital Signs Date Time Temp Pulse Resp B/P (MAP) Pulse Ox O2 Delivery O2 Flow Rate FiO2 08/29/17 08:39 98.2 82 18 109/60 (76) 96 08/29/17 06:51 98.4 89 17 132/78 (96) 96 08/29/17 06:41 90 08/29/17 04:04 85 08/29/17 02:08 98.2 83 18 132/72 (92) 95 08/29/17 00:24 98.1 64 18 127/66 (86) 98 08/29/17 00:07 88 08/28/17 21:52 98.1 66 18 144/78 (100) 94 08/28/17 21:25 96 08/28/17 20:09 77 08/28/17 18:00 79 08/28/17 17:05 08/28/17 16:30 69 18 141/66 (91) 97 Room Air 08/28/17 15:30 95 21 08/28/17 14:48 65 14 125/60 (81) 97 Physical Exam GENERAL: This is a well-nourished, well-developed patient, in no apparent distress. Resting comfortably in bed and speaking in complete sentences. Walking to the bathroom in the [place] and back without problems SKIN: No rashes, ecchymoses or lesions. Cool and dry. HEAD: Atraumatic. Normocephalic. No temporal or scalp tenderness. EYES: Pupils equal round and reactive. Extraocular motions intact. No scleral icterus. No injection or drainage. ENT: Airway patent. NECK: No JVD or lymphadenopathy. Supple, nontender CARDIOVASCULAR: Regular rate and rhythm without murmurs, gallops, or rubs. RESPIRATORY: Coarse breath sounds and wheezing bilaterally. moving air GASTROINTESTINAL: Abdomen soft, non-tender, nondistended. No hepato-splenomegaly , or palpable masses. No guarding. MUSCULOSKELETAL: Extremities without clubbing, cyanosis, or edema.No calf tenderness. * No obvious swelling, ecchymosis, erythema right shoulder. Pain with palpation around shoulder. No crepitus present. NEUROLOGICAL: Awake and alert. Cranial nerves II through XII intact (excluding CN XI). [id number] normal. Motor and sensory grossly within normal limits. Five out of 5 muscle strength in all muscle groups. Normal speech. Laboratory Laboratory Tests Test 08/28/17 21:36 08/29/17 02:28 Troponin I 0.26 0.26 B-Type Natriuretic Peptide 451 Triglycerides Level 52 Cholesterol Level 144 LDL Cholesterol 92 HDL Cholesterol 41.9 Cholesterol/HDL Ratio 3.43 Result Diagram: 08/28/17 1130 08/28/17 1130 Imaging Last Impressions Lower Extremity Ultrasound 08/28/17 1111 Signed Impressions: Service Date/Time: Monday, August 28, 2017 11:31 - CONCLUSION: Negative for deep venous thrombosis. Hector Rodríguez MD FACR Head CT 08/28/17 1111 Signed Impressions: Service Date/Time: Monday, August 28, 2017 12:07 - CONCLUSION: No acute disease. Hector Rodríguez MD FACR Chest X-Ray 08/28/17 1111 Signed Impressions: Service Date/Time: Monday, August 28, 2017 11:17 - CONCLUSION: Pacer otherwise negative. Hector Rodríguez MD FACR Caprini VTE Risk Assessment Caprini VTE Risk Assessment: Mod/High Risk (score >= 2) VTE Pharm Contraindication: SCDs until evaluation of stroke is completed Caprini Risk Assessment Model Point Value = 1 Point Value = 2 Point Value = 3 Point Value = 5 Age 41-60 Minor surgery BMI > 25 kg/m2 Swollen legs Varicose veins or History of unexplained or recurrent spontaneous Oral contraceptives or hormone replacement Sepsis (< 1 month) Serious lung disease, including pneumonia (< 1 month) Abnormal pulmonary function Acute myocardial infarction Congestive heart failure (< 1 month) History of inflammatory bowel disease Medical patient at bed rest Age 61-74 Arthroscopic surgery Major open surgery (> 45 min) Laparoscopic surgery (> 45 min) Malignancy Confined to bed (> 72 hours) Immobilizing plaster cast Central venous access Age >= 75 History of VTE Family history of VTE Factor V Leiden Prothrombin [id number] Lupus anticoagulant Anticardiolipin antibodies Elevated serum homocysteine Heparin-induced thrombocytopenia Other congenital or acquired thrombophilia Stroke (< 1 month) Elective arthroplasty Hip, pelvis, or leg fracture Acute spinal cord injury (< 1 month) Prophylaxis Regimen Total Risk Factor Score Risk Level Prophylaxis Regimen 0-1 Low Early ambulation 2 Moderate Order ONE of the following: *Sequential Compression Device (SCD) *Heparin 5000 units SQ BID 3-4 Higher Order ONE of the following medications: *Heparin 5000 units SQ TID *Enoxaparin/Lovenox 40 mg SQ daily (WT < 150 kg, CrCl > 30 mL/min) *Enoxaparin/Lovenox 30 mg SQ daily (WT < 150 kg, CrCl > 10-29 mL/min) *Enoxaparin/Lovenox 30 mg SQ BID (WT < 150 kg, CrCl > 30 mL/min) AND/OR *Sequential Compression Device (SCD) 5 or more Highest Order ONE of the following medications: *Heparin 5000 units SQ TID (Preferred with Epidurals) *Enoxaparin/Lovenox 40 mg SQ daily (WT < 150 kg, CrCl > 30 mL/min) *Enoxaparin/Lovenox 30 mg SQ daily (WT < 150 kg, CrCl > 10-29 mL/min) *Enoxaparin/Lovenox 30 mg SQ BID (WT < 150 kg, CrCl > 30 mL/min) AND *Sequential Compression Device (SCD) Assessment and Plan Assessment and Plan 72-year-old female with history significant for CAD, HTN. Admitted for TIA evaluation. Also concern for possible COPD exacerbation Problem List: (1) TIA (transient ischemic attack) ICD Codes: G45.9 - Transient cerebral ischemic attack, unspecified Plan: Symptoms of right-sided pain, nausea, presyncope for her last week that has now increased in duration from 5 minutes to 30 minutes before complete resolution. Episode from 08/25 was associated with possible slurred speech and facial droop. No focal deficits found on physical exam. Neurologically patient is intact. -Head CT unremarkable. -Neuro check -PT consulted -MRI/MRA done. MRI did not show any CVA or acute findings. echo ordered these sxs are unusual. Most CVAs or TIAs have some accompanying sensory deficit and motor especially if it involves the entire half of the body. Per pt this pain radiated down from her headache. She denies any neck pain or problems, headache or pains in her body at all today and has good motor fx. 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 can follow her to see if her unusual sxs recur or worsen. The pt herself did not mention and slurred speech or facial droop and does not have these today. It is unclear if she may have had a virus causing headache and myalgias though why one side of the body more than the other is unusual. Medications: * Aspirin * Pravastatin (2) COPD (chronic obstructive pulmonary disease) ICD Codes: J44.9 - Chronic obstructive pulmonary disease, unspecified Status: Acute Plan: Patient with history of moderate to severe COPD. Recently started on Levaquin for pneumonia. Lungs with very coarse sounds bilaterally. Increased with worsening generalized fatigue. Adequate O2 saturation on room air. 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 Also with exam findings patient may be having an underlying COPD exacerbation as well. -No leukocytosis, WBC mildly depressed at 3.8. No left shift -Chest x-ray unremarkable -Repeat chest x-ray AP and lateral tomorrow -incentive spirometry Medications: * Continue Levaquin (08/25- * Started prednisone 40 mg daily, which seems to have made the biggest difference * Albuterol nebulizer * Continue home Symbicort and Spiriva (3) Shoulder pain, right ICD Codes: M25.511 - Pain in right shoulder Plan: History of shoulder pain in relation to possible TIA symptoms is unclear. Especially since patient has symptoms outside of episodes. Physical exam significant for pain with palpation. May be MSK related. However symptoms may be referred from possible pneumonia. -Shoulder x-ray shows arthritis -If shoulder pain persists after evaluation of TIA, may consider evaluation of the neck as an outpatient, she has no neck pain today (4) Coronary artery disease ICD Codes: I25.10 - Coronary artery disease Status: Acute Plan: History of CAD with a stent in place. Patient also has an atrial pacemaker. No defibrillator. -Initial EKG unremarkable except for isolated ST elevation in V1. Not present in the other leads. Troponin is slightly elevated at 0.27 but there is no associated EKG changes or chest pain. -her troponins have remained stable but elevated -Cardiac telemetry -Repeated BNP as well. Patient does not have lower extremity edema but does become more fatigued with routine activities. -consulted Cardiology as she has a stent and though her diminished exercise capacity is likely related to her lungs, she could have worsening CAD -See medications above (5) Hypertension ICD Codes: I10 - Hypertension Status: Acute Plan: We'll allow for permissive hypertension 24 hours. -Resume home metoprolol 08/29 (6) Nutrition, metabolism, and development symptoms ICD Codes: R63.8 - Other symptoms and signs concerning food and fluid intake Plan: Diet: Heart healthy Fluids: PO hydration Electrolytes: Unremarkable, continue to monitor DVT prophylaxis: SCDs until TIA evaluation complete, added lovenox today GI prophylaxis: H2 magdalena due to steroid use Problem Qualifiers (1) TIA (transient ischemic attack): Qualified Codes: G45.1 - Carotid artery syndrome (hemispheric) (2) COPD (chronic obstructive pulmonary disease): Qualified Codes: J44.1 - Chronic obstructive pulmonary disease with (acute) exacerbation (3) Shoulder pain, right: Qualified Codes: M25.511 - Pain in right shoulder; G89.29 - Other chronic pain (4) Coronary artery disease: Qualified Codes: I25.10 - Atherosclerotic heart disease of [place] coronary artery without angina pectoris (5) Hypertension: Qualified Codes: I10 - Essential (primary) hypertension Cande Young MD Aug 29, 2017 13:08
--- NOTE | 2017-08-29 13:36 | EKG ---
Date Performed: 08/29/2017 Time Performed: 06:55:57 PTAGE: 72 years EKG: Sinus rhythm MINIMAL ST DEPRESSION Since the prior tracing, there has been no significant change BORDERLINE ECG PREVIOUS TRACING : 08/29/2017 02.32 DOCTOR: Anthony Connors Interpretating Date/Time 08/29/2017 13:36:12
--- NOTE | 2017-08-29 13:37 | EKG ---
Date Performed: 08/28/2017 Time Performed: 18:34:36 PTAGE: 72 years EKG: Sinus rhythm SEPTAL MYOCARDIAL INFARCTION Since the prior tracing, there has been no significant change ABNORMAL ECG PREVIOUS TRACING : 08/28/2017 11.01 DOCTOR: Anthony Connors Interpretating Date/Time 08/29/2017 13:36:38
--- NOTE | 2017-08-29 13:52 | EKG ---
Date Performed: 08/28/2017 Time Performed: 11:01:46 PTAGE: 72 years EKG: ELECTRONIC ATRIAL PACEMAKER NONSPECIFIC ST & T-WAVE ABNORMALITY ABNORMAL RHYTHM ECG PREVIOUS TRACING : 01/10/2015 13.34 Sinus rhythm is new since prior tracing. DOCTOR: Anthony Connors Interpretating Date/Time 08/29/2017 13:50:37
--- NOTE | 2017-08-29 13:52 | EKG ---
Date Performed: 08/29/2017 Time Performed: 02:32:08 PTAGE: 72 years EKG: Sinus rhythm ABNORMAL ECG PREVIOUS TRACING : 08/28/2017 18.34 Since the prior tracing, there has been no significant presley DOCTOR: Anthony Connors Interpretating Date/Time 08/29/2017 13:51:10
[2017-08-29] MEDS: ENOXAPARIN SODIUM 40 MG/0.4 ML SYRINGE SQ SCH (14:59)
--- NOTE | 2017-08-29 16:22 | ECHRPT ---
Indication: CVA/TIA CONCLUSIONS Normal left ventricular size. Moderate concentric left ventricular hypertrophy. The left ventricular systolic function is low normal with an estimated ejection fraction in the rang e of 50- 55%. A pacemaker wire is noted. The left atrial size is moderately dilated. There is a pacemaker wire present in the right atrial cavity. [id number] mitral valve regurgitation. Aortic valve sclerosis is present. There is mild to moderate tricuspid valve regurgitation. The estimated pulmonary arterial pressure is 36 mmHg. BP: 132 / 78 HR: 89 Rhythm: Sinus MEASUREMENTS (Male / Female) Normal Values Technical Quality:Technically difficult study 2D ECHO LV Diastolic Diameter PLAX 4.5 cm 4.2 - 5.9 / 3.9 - 5.3 cm LV Systolic Diameter PLAX 3.6 cm IVS Diastolic Thickness 1.2 cm 0.6 - 1.0 / 0.6 - 0.9 cm LVPW Diastolic Thickness 1.2 cm 0.6 - 1.0 / 0.6 - 0.9 cm LV Relative Wall Thickness 0.5 RV Internal Dim ED PLAX 2.5 cm LVOT Diameter 1.7 cm Aortic Root Diameter 2.2 cm LA Systolic Diameter LX 3.6 cm 3.0 - 4.0 / 2.7 - 3.8 cm M-MODE AV Cusp Separation MM 1.6 cm DOPPLER AV Peak Velocity 202.0 cm/s AV Peak Gradient 16.3 mmHg AV Mean Gradient 9.0 mmHg AV Velocity Time Integral 36.9 cm LVOT Peak Velocity 72.2 cm/s LVOT Peak Gradient 2.1 mmHg LVOT Velocity Time Integral 13.3 cm AV Area Cont Eq vti 0.8 cm AV Area Cont Eq pk 0.8 cm Mitral E Point Velocity 55.3 cm/s Mitral A Point Velocity 82.9 cm/s Mitral E to A Ratio 0.7 LV E' Lateral Velocity 8.6 cm/s Mitral E to LV E' Lateral Ratio 6.4 LV E' Septal Velocity 4.5 cm/s Mitral E to LV E' Septal Ratio 12.3 TR Peak Velocity 259.0 cm/s TR Peak Gradient 26.8 mmHg Right Atrial Pressure 10.0 mmHg Pulmonary Artery Systolic Pressu 36.8 mmHg Right Ventricular Systolic Press 36.8 mmHg PV Peak Velocity 60.9 cm/s PV Peak Gradient 1.5 mmHg FINDINGS LEFT VENTRICLE Normal left ventricular size. Moderate concentric left ventricular hypertrophy. The left ventricular systolic function is low normal with an estimated ejection fraction in the rang e of 50- 55%. RIGHT VENTRICLE Normal right ventricular size and systolic function. A pacemaker wire is noted. LEFT ATRIUM The left atrial size is moderately dilated. RIGHT ATRIUM There is a pacemaker wire present in the right atrial cavity. ATRIAL SEPTUM No atrial level shunt is demonstrated by color flow Doppler interrogation. AORTA The aortic root and proximal ascending aorta are normal in size on limited imaging. MITRAL VALVE [id number] mitral valve regurgitation. AORTIC VALVE Aortic valve sclerosis is present. TRICUSPID VALVE There is mild to moderate tricuspid valve regurgitation. The estimated pulmonary arterial pressure is 36 mmHg. PULMONARY VALVE The pulmonary valve is not well visualized. VESSELS The inferior vena cava is normal in size. PERICARDIUM No pericardial effusion. Yunior Montoya MD, FACC (Electronically Signed) Final Date:29 August 2017 16:20
--- NOTE | 2017-08-29 21:46 | MB ---
cc: OLVIN YU DO DATE OF CONSULTATION 08/29/17 REASON FOR CONSULTATION Non-sustained ventricular tachycardia. HISTORY OF PRESENT ILLNESS Veronica Starr is a pleasant 72-year-old female who sees my partner, Dr. Jones, in the office who presented to [facility] on August 28, 2017 for possible concern of TIA. The patient is not the best historian, so some of a history is taken from the chart. Apparently, the patient was having right-sided pain throughout her shoulder, chest, abdomen and leg which resolved after 5-10 minutes. She had some nausea but no vomiting with the episode. She did feel like she was going to pass out. She continued to have these episodes off and on of pain from her right side of her chest into her right shoulder and down her right arm. Nothing seemed to make them better or worse. The daughter apparently reported some right lower facial drooping and possible slurred speech the day before admission. Actually, the patient has just felt fatigued and more short of breath with any type of activity. PAST MEDICAL HISTORY 1. Hyperlipidemia 2. Coronary artery disease. 3. Hypertension 4. COPD 5. Vitamin B12 deficiency 6. Overactive bladder 7. Gastroesophageal reflux disease 8. Esophageal dismotility 9. Asthma 10. Depression 11. Obstructive sleep apnea. PAST SURGICAL HISTORY 1. Coronary stenting (believed to be in 2006) of the mid-LAD. 2. Gastric bypass (1998) 3. Right knee joint replacement (2002) 4. Right lower extremity venous stripping. 5. Placement of pacemaker. ALLERGIES LISINOPRIL MEDICATIONS 1. Levaquin 750 mg daily 2. Spiriva two puffs daily 3. Albuterol every 4 hours as needed for shortness of breath. 4. Lovastatin 40 mg daily 5. Nitro sublingual as needed for chest pain. 6. Metoprolol tartrate 50 mg b.i.d. 7. Norvasc 5 mg daily 8. Aspirin 81 mg daily 9. Citalopram 20 mg daily 10. Advair 1 puff b.i.d. FAMILY HISTORY Denies premature coronary artery disease or sudden cardiac within the family. SOCIAL HISTORY The patient previously smoked but quit 30 years ago. Denies alcohol or drug abuse. REVIEW OF SYSTEMS 14-systems were reviewed including osteopathic. Pertinent positives and negatives above otherwise negative. PHYSICAL EXAMINATION VITAL SIGNS: Temperature 97.9, heart rate 68, blood pressure 136/52, respirations 20, pulse ox 98% on room air. GENERAL: The patient appears well in no acute distress, alert, awake and oriented x3. Extraocular muscles intact. Mucous membranes moist. NECK: Supple. No JVD at 45 degrees. No carotid bruits heard bilaterally. Carotid upstroke is brisk in nature. HEART: Regular rate and rhythm. Positive first and second heart sounds with no murmurs, gallops or rubs. LUNGS: Clear to auscultation bilaterally. No wheezes, rales or rhonchi. ABDOMEN: Soft, nontender, nondistended. No organomegaly noted. EXTREMITIES: No clubbing, cyanosis or edema. Femoral and distal pulses intact bilaterally. NEUROLOGIC: No focal deficits. SKIN: Warm, dry and intact. OSTEOPATHIC: No kyphoscoliosis, lordosis or paraspinal tender points. LABORATORY FINDINGS Hemoglobin 12.7, hematocrit 38.4, platelets 166. Potassium 4.7, BUN 22, creatinine 0.78, troponin flat at 0.26. CARDIOLOGY STUDIES Electrocardiogram (August 29, 2017 at 06:55) sinus rhythm, minimal ST depression. IMPRESSION 1. Possible transient ischemic attack, although MRI/MRA showing no acute findings. 2. Elevated troponin. 3. Wide complex tachycardia noted on pacemaker interrogation. 4. History of coronary artery disease. 5. Hypertension. RECOMMENDATIONS 1. Ms. Starr had an episode which it is difficult to ascertain exactly what happened, but apparently she has had a multitude of symptoms. 2. It is not apparent that she had a true TIA at this time. 3. She has had an elevated troponin, although this is relatively flat. Because of this, we will plan to check a pharmacologic nuclear stress test in the morning. The patient states that she had one in December 2015 and at that time it was negative. 4. We will check a 2-D echo to look at her overall left ventricular function, cardiac structure and possible valvopathies. 5. She does have a history of syncopal workup while in [place] per Dr. Jones's records. Apparently, at that time the patient had multiple episodes of short wide complex tachycardias that were felt to be atrial fibrillation with aberrancy. This may be similar to the episode that was recorded on her pacemaker for which she presented to the hospital. 6. Further recommendations will be made based on the hospital course. Thank you for allowing me to see Nubia Starr. If there are any questions, please do not hesitate to call. Olvin Yu DO VGP/SA /5:25 PM /9:12 PM
[2017-08-30] VITALS (9 sets, daily range): BP systolic 133–167; BP diastolic 70–85; PULSE 68–80; RESP 18–20; TEMP 98.1–98.8; O2SAT 94–97
[2017-08-30] MEDS: RESP: ALBUTEROL 2.5 MG/IPRATROPIUM 0.5 MG NEB (SCH) INH ×4 (02:49→19:14)
[2017-08-30] MEDS: INSULIN ASPART SUPPLEMENTAL SCALE SQ SCH ×4 (08:00→21:00)
[2017-08-30 08:47] LABS: AUTOMATED NEUTROPHIL # 1.3 TH/MM3 (1.8-7.7); HEMATOCRIT 37.2 % (35.0-46.0); HEMOGLOBIN 12.2 GM/DL (11.6-15.3); LYMPH % 37.8 % (9.0-44.0); MEAN CELL VOLUME 85.3 FL (80.0-100.0); MEAN CORPUSCULAR HGB CONC 32.8 % (32.0-36.0); MEAN PLATELET VOLUME 9.5 FL (7.0-11.0); MONOCYTE # 0.4 TH/MM3 (0-0.9); NEUT % 47.2 % (16.0-70.0); PLATELET COUNT 155 TH/MM3 (150-450); RED BLOOD COUNT 4.36 MIL/MM3 (4.00-5.30); WHITE BLOOD COUNT 2.7 TH/MM3 (4.0-11.0)
--- NOTE | 2017-08-30 08:57 | HHI.FPPN ---
Subjective Remarks No acute events overnight. Vital signs unremarkable. This morning patient reports that she has had a recurrence of SOB and cough. She was feeling really good yesterday but is again feeling more fatigued this morning. Endorses chest pain only with coughing. Has not had a recurrence of right-sided body pain. Objective Vitals Vital Signs Date Time Temp Pulse Resp B/P (MAP) Pulse Ox O2 Delivery O2 Flow Rate FiO2 08/30/17 08:25 98.8 68 18 137/72 (93) 96 08/30/17 04:09 98.1 80 18 167/85 (112) 97 08/30/17 01:58 72 08/30/17 00:20 98.7 68 18 157/84 (108) 94 08/29/17 20:14 98.8 78 18 136/66 (89) 96 08/29/17 20:06 95 21 08/29/17 16:10 97.9 68 20 136/52 (80) 98 08/29/17 12:56 98.2 78 20 112/60 (77) 96 08/29/17 08:39 98.2 82 18 109/60 (76) 96 Result Diagram: 08/28/17 1130 08/28/17 1130 Objective Remarks GEN: Well-developed, well-nourished patient. No acute distress. CV: Regular rate and rhythm without obvious murmurs LUNGS: Very coarse breath sounds bilaterally, worse than yesterday. Mild accessory muscle use. GI: Nondistended. EXT: No edema. No calf tenderness. NEURO/PSYCH: Awake, alert. Appropriate insight and judgment. Normal speech A/P Assessment and Plan 72-year-old female with history significant for CAD, HTN. Admitted for TIA evaluation below suspicion at this time. Most likely COPD exacerbation and possible cardiac influence of symptoms. Discharge Planning Tomorrow pending improvement in respiratory status wdw Dr. Young Problem List: (1) COPD (chronic obstructive pulmonary disease) ICD Codes: J44.9 - Chronic obstructive pulmonary disease, unspecified Status: Acute Plan: Patient with history of moderate to severe COPD. Recently started on Levaquin for pneumonia. Lungs with very coarse sounds bilaterally. Increased with worsening generalized fatigue. Adequate O2 saturation on room air. 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 Also with exam findings patient may be having an underlying COPD exacerbation as well. -No leukocytosis, WBC mildly depressed at 3.8. No left shift on admission -Chest x-ray AP and lateral: Prominence of bilateral interstitial lungs within the mid and lower lobes may reflect edema secondary to an infectious etiology. This can be seen in the setting of viral or atypical pneumonia. -incentive spirometry -Echo is significant for increased pulmonary pressure * would need repeat PFTs as an outpatient Medications: * Continue Levaquin (08/25-may require a long abx course) * IV steroids 24 hours due to recurrence of very coarse lung sounds. Resume PO steroids 08/31 with BID dosing. * Albuterol nebulizer * Continue home Symbicort and Spiriva * may benefit from discontinuing beta magdalena if respiratory symptoms continue. This will need to be weighed against the cardiac benefit due to CAD history. (2) Shoulder pain, right ICD Codes: M25.511 - Pain in right shoulder Plan: Symptoms of right-sided pain starting in the shoulder, nausea, presyncope for her last week that has now increased in duration from 5 minutes to 30 minutes before complete resolution. Episode from 08/25 was associated with possible slurred speech and facial droop but patient was unaware of the symptoms as they were reported by her daughter. No focal deficits found on physical exam. Neurologically patient is intact. After thorough evaluation, low concern that this episode was actually related to a TIA. Symptoms may be related to infectious etiology from COPD exacerbation/pneumonia that may have contributed to unusual pattern of pain/symptoms. Right shoulder pain and right- sided body pain has now resolved. -Neuro checks -PT consulted: No discharge needs required Imaging: * Brain MRI: No evidence of acute abnormality. Age-related white matter changes. * Head MRA normal * Head CT: Unremarkable * Shoulder x-ray: Degenerative changes Medications: * Aspirin * Pravastatin * Metoprolol (3) TIA (transient ischemic attack) ICD Codes: G45.9 - Transient cerebral ischemic attack, unspecified Plan: Low concern that symptoms were actually related to a TIA but rather due to referred/myalgia type pain from possible infectious etiology. Stroke/TIA evaluation unremarkable. See more detail plan under right shoulder pain and COPD. (4) Coronary artery disease ICD Codes: I25.10 - Coronary artery disease Status: Acute Plan: History of CAD with a stent in place. Patient also has an atrial pacemaker. No defibrillator. Initial EKG unremarkable. Troponins slightly elevated but without EKG changes or chest pain. Did have a 10beat run of Vtach on the morning of 08/29, pt was asymptomatic. -BNP elevated likely from COPD, no/low concern for CHF exacerbation. -Echo: EF 50-55% with moderately dilated atria. Aortic valve sclerosis. Pulmonary pressure of 36 -Cardiac telemetry Cardiology consulted: appreciate recommendations * not apparent that she had a true TIA * pharmacologic nuclear stress test * Hx of multiple episodes of short wide complex tachycardias that were varsha to be atrial fibrillation with aberrancy. May be having a similar episode. -see medications above (5) Hypertension ICD Codes: I10 - Hypertension Status: Acute Plan: continue home medications (6) Nutrition, metabolism, and development symptoms ICD Codes: R63.8 - Other symptoms and signs concerning food and fluid intake Plan: Diet: Heart healthy Fluids: PO hydration Electrolytes: Unremarkable, continue to monitor DVT prophylaxis: Lovenox GI prophylaxis: H2 magdalena due to steroid use Problem Qualifiers (1) COPD (chronic obstructive pulmonary disease): Qualified Codes: J44.1 - Chronic obstructive pulmonary disease with (acute) exacerbation (2) Shoulder pain, right: Qualified Codes: M25.511 - Pain in right shoulder; G89.29 - Other chronic pain (3) TIA (transient ischemic attack): Qualified Codes: G45.1 - Carotid artery syndrome (hemispheric) (4) Coronary artery disease: Qualified Codes: I25.10 - Atherosclerotic heart disease of [place] coronary artery without angina pectoris (5) Hypertension: Qualified Codes: I10 - Essential (primary) hypertension Ely Packer MD, R3 Aug 30, 2017 08:57
[2017-08-30] MEDS: SODIUM CHLORIDE 0.9% FLUSH 10 ML FLUSH IV FLUSH SCH ×2 (09:00→22:01)
[2017-08-30 09:03] LABS: BICARBONATE 28.4 MEQ/L (21.0-32.0); CALCIUM 8.9 MG/DL (8.5-10.1); CREATININE 0.71 MG/DL (0.50-1.00)
[2017-08-30] MEDS: methylPREDNISolone SOD SUCC 40 MG/1 ML VIAL IV PUSH SCH ×2 (09:36→22:01)
[2017-08-30] MEDS: ASPIRIN 81 MG CHEW TAB CHEW SCH (09:41)
[2017-08-30] MEDS: CITALOPRAM HYDROBROMIDE 20 MG TAB PO SCH (09:42)
[2017-08-30] MEDS: BUDESONIDE-FORMOTEROL 160/4.5 MCG INHALER INH SCH ×2 (09:42→22:01)
[2017-08-30] MEDS: guaiFENesin E.R. 600 MG TAB PO SCH ×2 (09:43→22:02)
[2017-08-30] MEDS: FAMOTIDINE 20 MG TAB PO SCH ×2 (09:43→22:02)
[2017-08-30] MEDS: PRAVASTATIN SOD 40 MG TAB PO SCH (09:43)
[2017-08-30] MEDS: DOCUSATE SODIUM 50 MG/SENNA 8.6 MG TAB PO SCH ×2 (09:43→21:00)
[2017-08-30 10:43] LABS: HEMOGLOBIN A1C 5.6 % (4.3-6.0)
--- NOTE | 2017-08-30 12:09 | PD.CARD.PN ---
Subjective Subjective Remarks No events overnight Still SOB with activity Objective Medications Current Medications Medications (Trade) Dose Ordered Sig/Sourav Route Start Time Stop Time Status Last Admin (Aspirin Chew) 81 mg DAILY CHEW 08/29/17 09:00 08/30/17 09:41 (CeleXA) 20 mg DAILY PO 08/29/17 09:00 08/30/17 09:42 (Levaquin) 750 mg DAILY PO 08/29/17 09:00 08/29/17 10:40 (Pravachol) 40 mg DAILY PO 08/29/17 09:00 08/30/17 09:43 (Symbicort 160-4.5 Mcg Inh) 2 puff BID INH 08/28/17 21:00 08/30/17 09:42 (Spiriva Inh) 18 mcg DAILY INH 08/29/17 09:00 08/29/17 09:00 (NS Flush) 2 ml UNSCH PRN IV FLUSH 08/28/17 15:00 (NS Flush) 2 ml BID IV FLUSH 08/28/17 21:00 08/30/17 09:00 (Narcan Inj) 0.4 mg UNSCH PRN IV PUSH 08/28/17 15:45 (Meli-Colace) 1 tab BID PO 08/28/17 21:00 08/30/17 09:43 (Milk Of Magnesia Liq) 30 ml Q12H PRN PO 08/28/17 15:45 (Senokot) 17.2 mg Q12H PRN PO 08/28/17 15:45 (Dulcolax Supp) 10 mg DAILY PRN RECTAL 08/28/17 15:45 (Lactulose Liq) 30 ml DAILY PRN PO 08/28/17 15:45 (Zofran Inj) 4 mg Q6H PRN IVP 08/28/17 15:45 (Tylenol) 650 mg Q6H PRN PO 08/28/17 15:45 ([place] 5-325 Mg) 1 tab Q4H PRN PO 08/28/17 15:45 ([place] 7.5-325 Mg) 1 tab Q4H PRN PO 08/28/17 15:45 (Duoneb Neb) 1 ampule Q6HR NEB INH 08/28/17 16:00 08/30/17 08:36 (Albuterol Neb) 2.5 mg Q2HR NEB PRN INH 08/28/17 15:45 (NovoLOG SUPPLEMENTAL SCALE) 1 ACHS SQ 08/28/17 21:00 (D50w (Vial) Inj) 50 ml UNSCH PRN IV PUSH 08/28/17 17:30 (Glucagon Inj) 1 mg UNSCH PRN OTHER 08/28/17 17:30 (Lopressor) 50 mg BID PO 08/29/17 09:00 08/29/17 21:50 (Pepcid) 10 mg BID PO 08/28/17 21:00 08/30/17 09:43 (Pill Splitter) 1 ea UNSCH PRN OTHER 08/28/17 18:15 (Lovenox Inj) 40 mg Q24H SQ 08/29/17 14:00 08/29/17 14:59 (SoluMEDROL INJ) 40 mg Q12HR IV PUSH 08/30/17 09:00 08/30/17 21:01 08/30/17 09:36 (Mucinex Er) 600 mg BID PO 08/30/17 09:00 08/30/17 09:43 (Deltasone) 20 mg BID PO 08/31/17 09:00 Vital Signs / I&O Vital Signs Date Time Temp Pulse Resp B/P (MAP) Pulse Ox O2 Delivery O2 Flow Rate FiO2 08/30/17 08:36 96 21 08/30/17 08:25 98.8 68 18 137/72 (93) 96 08/30/17 04:09 98.1 80 18 167/85 (112) 97 08/30/17 01:58 72 08/30/17 00:20 98.7 68 18 157/84 (108) 94 08/29/17 20:14 98.8 78 18 136/66 (89) 96 08/29/17 20:06 95 21 08/29/17 16:10 97.9 68 20 136/52 (80) 98 08/29/17 12:56 98.2 78 20 112/60 (77) 96 Physical Exam GENERAL: NAD, AAOx3 SKIN: Warm and dry. HEAD: Atraumatic. Normocephalic. EYES: Pupils equal and round. No scleral icterus. No injection or drainage. ENT: No nasal bleeding or discharge. Mucous membranes pink and moist. NECK: Trachea midline. No JVD. CARDIOVASCULAR: Regular rate and rhythm. RESPIRATORY: No accessory muscle use. Decreased breath sounds bilaterally GASTROINTESTINAL: Abdomen soft, non-tender, nondistended. Hepatic and splenic margins not palpable. MUSCULOSKELETAL: Trace edema NEUROLOGICAL: Awake and alert. No obvious cranial nerve deficits. Motor grossly within normal limits. Five out of 5 muscle strength in the arms and legs. Normal speech. PSYCHIATRIC: Appropriate mood and affect; insight and judgment normal. Laboratory Laboratory Tests Test 08/30/17 07:35 White Blood Count 2.7 TH/MM3 Red Blood Count 4.36 MIL/MM3 Hemoglobin 12.2 GM/DL Hematocrit 37.2 % Mean Corpuscular Volume 85.3 FL Mean Corpuscular Hemoglobin 28.0 PG Mean Corpuscular Hemoglobin Concent 32.8 % Red Cell Distribution Width 14.0 % Platelet Count 155 TH/MM3 Mean Platelet Volume 9.5 FL Neutrophils (%) (Auto) 47.2 % Lymphocytes (%) (Auto) 37.8 % Monocytes (%) (Auto) 15.0 % Eosinophils (%) (Auto) 0.0 % Basophils (%) (Auto) 0.0 % Neutrophils # (Auto) 1.3 TH/MM3 Lymphocytes # (Auto) 1.0 TH/MM3 Monocytes # (Auto) 0.4 TH/MM3 Eosinophils # (Auto) 0.0 TH/MM3 Basophils # (Auto) 0.0 TH/MM3 CBC Comment DIFF FINAL Differential Comment Blood Urea Nitrogen 20 MG/DL Creatinine 0.71 MG/DL Random Glucose 91 MG/DL Calcium Level 8.9 MG/DL Sodium Level 137 MEQ/L Potassium Level 4.2 MEQ/L Chloride Level 101 MEQ/L Carbon Dioxide Level 28.4 MEQ/L Anion Gap 8 MEQ/L Estimat Glomerular Filtration Rate 81 ML/MIN Assessment and Plan Problem List: (1) Elevated troponin ICD Codes: R74.8 - Abnormal levels of other serum enzymes (2) Coronary artery disease ICD Codes: I25.10 - Coronary artery disease Status: Acute (3) Hypertension ICD Codes: I10 - Hypertension Status: Acute (4) HLD (hyperlipidemia) ICD Codes: E78.5 - HLD (hyperlipidemia) Status: Acute Permanent Comment: 07/2014: LDL-84, HDL-53, Trig-87 Last Edited By: Chuckie Peoples on Jul 14, 2014 00:18 (5) Asthma ICD Codes: J45.909 - Asthma Status: Acute Assessment and Plan 1) Symptoms are very non-specific, difficult to pin down exactly what is going on from the history 2) Significant SOB with activity Possible cardiac vs pulmonary cause Plan stress test today If negative, no further cardiovascular work up If positive, then plan for cardiac catheterization in the morning 3) EF 50-55%, mild to moderate MR/TR Problem Qualifiers (1) Coronary artery disease: Qualified Codes: I25.10 - Atherosclerotic heart disease of [place] coronary artery without angina pectoris (2) Hypertension: Qualified Codes: I10 - Essential (primary) hypertension Olvin Moreno DO Aug 30, 2017 12:09
[2017-08-30] MEDS ORDERED: REGADENOSON INJ 0.4 MG/5 ML SYR ONE (12:34)
--- NOTE | 2017-08-30 13:39 | RADRPT ---
EXAM DATE/TIME: 08/30/2017 12:31 [place] COMPARISON: No previous studies available for comparison. INDICATIONS : Right should, chest, abdomen and leg pain with nausea and dizziness. Angina. DOSE: 25.4 mCi Tc99m Myoview at stress. 8.5 mCi Tc99m Myoview at rest. 0.4 mg Lexiscan STRESS SYMPTOMS: Dyspnea, stomach pain and flushed. EJECTION FRACTION: 35% MEDICAL HISTORY : Hypercholesterolemia. Hypertension. Gastroesophageal reflux disease. SURGICAL HISTORY : Coronary artery stent. Total knee replacement, right. Cholecystectomy. Appendectomy. Gastric bypass. Pacemaker. ENCOUNTER: Initial ACUITY: 1 day PAIN SCALE: 4/10 LOCATION: Right chest TECHNIQUE: The patient underwent pharmacologic stress with infusion of prescribed dose. Continuous ECG tracing was monitored during stress. Gated SPECT imaging was performed after stress and conventional SPECT i maging was performed at rest. The examination was performed on a SPECT/CT scanner, both attenuation and non-corrected datasets were reviewed. FINDINGS: DISTRIBUTION: The maximum perfused segment at stress is in the septal wall. PERFUSION STUDY: The pattern of perfusion at stress is within normal limits. GATED STUDY: Global hypokinesis. Ejection fraction 35%. No focal wall motion abnormality identified. CONCLUSION: Global hypokinesis with ejection fraction 35%. No focal wall motion abnormality or reversible perfusi on defects. RISK CATEGORY: 2- Intermediate Risk. Louie Rueda MD on August 30, 2017 at 13:34 Board Certified Radiologist. This report was verified electronically.
[2017-08-30] MEDS: LEVOFLOXACIN 750 MG TAB PO SCH (14:03)
[2017-08-30] MEDS: METOPROLOL TARTRATE 50 MG TAB PO SCH ×2 (14:03→22:03)
[2017-08-30] MEDS: ENOXAPARIN SODIUM 40 MG/0.4 ML SYRINGE SQ SCH (14:04)
[2017-08-30] MEDS: TIOTROPIUM BROMIDE 18 MCG INH INH SCH (14:04)
[2017-08-31] VITALS (11 sets, daily range): BP systolic 120–158; BP diastolic 63–79; PULSE 62–87; RESP 18–20; TEMP 96.3–98.4; O2SAT 93–98
[2017-08-31] MEDS: RESP: ALBUTEROL 2.5 MG/IPRATROPIUM 0.5 MG NEB (SCH) INH ×4 (02:42→21:29)
[2017-08-31 05:15] LABS: AUTOMATED NEUTROPHIL # 1.4 TH/MM3 (1.8-7.7); BASOPHIL % 0.1 % (0.0-2.0); HEMOGLOBIN 13.3 GM/DL (11.6-15.3); LYMPH % 24.7 % (9.0-44.0); LYMPHOCYTE # 0.5 TH/MM3 (1.0-4.8); MEAN CELL VOLUME 84.7 FL (80.0-100.0); MEAN CORPUSCULAR HEMOGLOBIN 28.1 PG (27.0-34.0); MEAN CORPUSCULAR HGB CONC 33.2 % (32.0-36.0); MEAN PLATELET VOLUME 9.3 FL (7.0-11.0); MONO % 8.6 % (0.0-8.0); MONOCYTE # 0.2 TH/MM3 (0-0.9); NEUT % 66.6 % (16.0-70.0); PLATELET COUNT 169 TH/MM3 (150-450); RED BLOOD COUNT 4.73 MIL/MM3 (4.00-5.30); WHITE BLOOD COUNT 2.1 TH/MM3 (4.0-11.0)
[2017-08-31 05:38] LABS: BICARBONATE 29.2 MEQ/L (21.0-32.0); CALCIUM 9.1 MG/DL (8.5-10.1); CREATININE 0.9 MG/DL (0.50-1.00)
[2017-08-31] MEDS: INSULIN ASPART SUPPLEMENTAL SCALE SQ SCH ×4 (08:00→21:00)
--- NOTE | 2017-08-31 09:28 | HHI.FPPN ---
Subjective Remarks AFVSS. No acute events over night. Still feeling extremely weak. Cannot ambulate without becoming fatigued. She requests, "I just want to feel better." Breathing has improved 50% since yesterday. Reports that the steroids and breathing treatments are helping. She denies any neurological symptoms including arm pain, numbness, headaches, or slurred speech. (Brian Menard MD, R3) Objective Vitals Vital Signs Date Time Temp Pulse Resp B/P (MAP) Pulse Ox O2 Delivery O2 Flow Rate FiO2 08/31/17 08:00 96.7 62 20 123/68 (86) 93 08/31/17 03:49 98.2 70 18 137/63 (87) 96 08/31/17 00:12 65 08/31/17 00:00 97.9 78 18 154/79 (104) 97 08/30/17 20:30 98.5 71 18 133/76 (95) 96 08/30/17 19:15 97 21 08/30/17 16:05 98.2 68 20 137/70 (92) 96 (Brian Menard MD, R3) Result Diagram: 08/31/17 0438 08/31/17 0438 Objective Remarks GEN: Well-developed, well-nourished patient. No acute distress. CV: Regular rate and rhythm without obvious murmurs LUNGS: Very coarse breath sounds bilaterally, worse than yesterday. Mild accessory muscle use. GI: Nondistended. EXT: No edema. No calf tenderness. NEURO/PSYCH: Awake, alert. Appropriate insight and judgment. Normal speech (Brian Menard MD, R3) A/P Assessment and Plan 72-year-old female with history significant for CAD, HTN. Admitted for TIA evaluation below suspicion at this time. Most likely COPD exacerbation and possible cardiac influence of symptoms. Discharge Planning Tomorrow pending improvement in respiratory status wdw Dr. Young (Brian Menard MD, R3) Attending Attestation THIS CASE WAS DISCUSSED WITH THE RESIDENT PHYSICIANS.PATIRNT WAS SEEN EXAMINED WITH DR Tatiana MENARD, I HAVE REVIEWED THE RECORD AND AGREE WITH THE ABOVE NOTE AND PLAN OF CARE WAS DISCUSSED. I HAVE AUTHORIZED THE ORDER SET. (Zhao Hernandez MD) Problem List: (1) COPD (chronic obstructive pulmonary disease) ICD Codes: J44.9 - Chronic obstructive pulmonary disease, unspecified Status: Acute Plan: Patient with history of moderate to severe COPD. Recently started on Levaquin for pneumonia. Lungs with very coarse sounds bilaterally. Increased with worsening generalized fatigue. Adequate O2 saturation on room air. 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 Also with exam findings patient may be having an underlying COPD exacerbation as well. -No leukocytosis, WBC mildly depressed at 3.8. Continue to decrease to 2.1 k on 08/31/2017. -Chest x-ray AP and lateral: Prominence of bilateral interstitial lungs within the mid and lower lobes may reflect edema secondary to an infectious etiology. This can be seen in the setting of viral or atypical pneumonia. -incentive spirometry -Echo is significant for increased pulmonary pressure (36 mm Hg) * would need repeat PFTs as an outpatient Medications: * Continue Levaquin (08/25-may require a long abx course). Add Azithromycin for enhanced atypical coverage. * IV steroids 24 hours due to recurrence of very coarse lung sounds. Resume PO steroids 08/31 with BID dosing. * Albuterol nebulizer * Continue home Symbicort and Spiriva * may benefit from discontinuing beta magdalena if respiratory symptoms continue. This will need to be weighed against the cardiac benefit due to CAD history. (2) Shoulder pain, right ICD Codes: M25.511 - Pain in right shoulder Plan: Symptoms of right-sided pain starting in the shoulder, nausea, presyncope for her last week that has now increased in duration from 5 minutes to 30 minutes before complete resolution. Episode from 08/25 was associated with possible slurred speech and facial droop but patient was unaware of the symptoms as they were reported by her daughter. No focal deficits found on physical exam. Neurologically patient is intact. After thorough evaluation, low concern that this episode was actually related to a TIA. Symptoms may be related to infectious etiology from COPD exacerbation/pneumonia that may have contributed to unusual pattern of pain/symptoms. Right shoulder pain and right- sided body pain has now resolved. -Neuro checks -PT consulted: No discharge needs required Imaging: * Brain MRI: No evidence of acute abnormality. Age-related white matter changes. * Head MRA normal * Head CT: Unremarkable * Shoulder x-ray: Degenerative changes Medications: * Aspirin * Pravastatin * Metoprolol (3) TIA (transient ischemic attack) ICD Codes: G45.9 - Transient cerebral ischemic attack, unspecified Plan: Low concern that symptoms were actually related to a TIA but rather due to referred/myalgia type pain from possible infectious etiology. Stroke/TIA evaluation unremarkable. See more detail plan under right shoulder pain and COPD. (4) Coronary artery disease ICD Codes: I25.10 - Coronary artery disease Status: Acute Plan: History of CAD with a stent in place. Patient also has an atrial pacemaker. No defibrillator. Initial EKG unremarkable. Troponins slightly elevated but without EKG changes or chest pain. Did have a 10beat run of Vtach on the morning of 08/29, pt was asymptomatic. -BNP elevated likely from COPD, no/low concern for CHF exacerbation. -Echo: EF 50-55% with moderately dilated atria. Aortic valve sclerosis. Pulmonary pressure of 36 mm Hg. -Cardiac telemetry Cardiology consulted: appreciate recommendations * not apparent that she had a true TIA * pharmacologic nuclear stress test showed diffuse hypokinesia and EF of 35%. Spoke with cardiology and this decrease in EF is likely secondary to gating issue (lower amount of slides per frame) which can contribute to a lower EF on nuclear stress test. * Hx of multiple episodes of short wide complex tachycardias that were varsha to be atrial fibrillation with aberrancy. May be having a similar episode. -see medications above (5) Hypertension ICD Codes: I10 - Hypertension Status: Acute Plan: continue home medications (6) Nutrition, metabolism, and development symptoms ICD Codes: R63.8 - Other symptoms and signs concerning food and fluid intake Plan: Diet: Heart healthy Fluids: PO hydration Electrolytes: Unremarkable, continue to monitor DVT prophylaxis: Lovenox GI prophylaxis: H2 magdalena due to steroid use SDW Dr. Hernandez. (SailajaBrian MD, R3) Problem Qualifiers (1) COPD (chronic obstructive pulmonary disease): Qualified Codes: J44.1 - Chronic obstructive pulmonary disease with (acute) exacerbation (2) Shoulder pain, right: Qualified Codes: M25.511 - Pain in right shoulder; G89.29 - Other chronic pain (3) TIA (transient ischemic attack): Qualified Codes: G45.1 - Carotid artery syndrome (hemispheric) (4) Coronary artery disease: Qualified Codes: I25.10 - Atherosclerotic heart disease of [place] coronary artery without angina pectoris (5) Hypertension: Qualified Codes: I10 - Essential (primary) hypertension Irvona,Brian MD, R3 Aug 31, 2017 09:28 Zhao Hernandez MD Aug 31, 2017 21:01
[2017-08-31] MEDS: predniSONE 20 MG TAB PO SCH ×2 (10:32→21:22)
[2017-08-31] MEDS: SODIUM CHLORIDE 0.9% FLUSH 10 ML FLUSH IV FLUSH SCH ×2 (10:32→21:22)
[2017-08-31] MEDS: ASPIRIN 81 MG CHEW TAB CHEW SCH (10:32)
[2017-08-31] MEDS: METOPROLOL TARTRATE 50 MG TAB PO SCH ×2 (10:32→21:22)
[2017-08-31] MEDS: LEVOFLOXACIN 750 MG TAB PO SCH (10:32)
[2017-08-31] MEDS: guaiFENesin E.R. 600 MG TAB PO SCH ×2 (10:32→21:22)
[2017-08-31] MEDS: DOCUSATE SODIUM 50 MG/SENNA 8.6 MG TAB PO SCH ×2 (10:33→21:22)
[2017-08-31] MEDS: CITALOPRAM HYDROBROMIDE 20 MG TAB PO SCH (10:33)
[2017-08-31] MEDS: PRAVASTATIN SOD 40 MG TAB PO SCH (10:33)
[2017-08-31] MEDS: FAMOTIDINE 20 MG TAB PO SCH ×2 (10:33→21:22)
[2017-08-31] MEDS: TIOTROPIUM BROMIDE 18 MCG INH INH SCH (10:33)
[2017-08-31] MEDS: BUDESONIDE-FORMOTEROL 160/4.5 MCG INHALER INH SCH ×2 (10:34→21:22)
--- NOTE | 2017-08-31 12:03 | PD.CARD.PN ---
Subjective Subjective Remarks No events overnight Feels better after steroids and breathing treatment Objective Medications Current Medications Medications (Trade) Dose Ordered Sig/Sourav Route Start Time Stop Time Status Last Admin (Aspirin Chew) 81 mg DAILY CHEW 08/29/17 09:00 08/31/17 10:32 (CeleXA) 20 mg DAILY PO 08/29/17 09:00 08/31/17 10:33 (Levaquin) 750 mg DAILY PO 08/29/17 09:00 08/31/17 10:32 (Pravachol) 40 mg DAILY PO 08/29/17 09:00 08/31/17 10:33 (Symbicort 160-4.5 Mcg Inh) 2 puff BID INH 08/28/17 21:00 08/31/17 10:34 (Spiriva Inh) 18 mcg DAILY INH 08/29/17 09:00 08/31/17 10:33 (NS Flush) 2 ml UNSCH PRN IV FLUSH 08/28/17 15:00 (NS Flush) 2 ml BID IV FLUSH 08/28/17 21:00 08/31/17 10:32 (Narcan Inj) 0.4 mg UNSCH PRN IV PUSH 08/28/17 15:45 (Meli-Colace) 1 tab BID PO 08/28/17 21:00 08/31/17 10:33 (Milk Of Magnesia Liq) 30 ml Q12H PRN PO 08/28/17 15:45 (Senokot) 17.2 mg Q12H PRN PO 08/28/17 15:45 (Dulcolax Supp) 10 mg DAILY PRN RECTAL 08/28/17 15:45 (Lactulose Liq) 30 ml DAILY PRN PO 08/28/17 15:45 (Zofran Inj) 4 mg Q6H PRN IVP 08/28/17 15:45 (Tylenol) 650 mg Q6H PRN PO 08/28/17 15:45 ([place] 5-325 Mg) 1 tab Q4H PRN PO 08/28/17 15:45 ([place] 7.5-325 Mg) 1 tab Q4H PRN PO 08/28/17 15:45 (Duoneb Neb) 1 ampule Q6HR NEB INH 08/28/17 16:00 08/31/17 11:20 (Albuterol Neb) 2.5 mg Q2HR NEB PRN INH 08/28/17 15:45 (NovoLOG SUPPLEMENTAL SCALE) 1 ACHS SQ 08/28/17 21:00 08/30/17 17:00 (D50w (Vial) Inj) 50 ml UNSCH PRN IV PUSH 08/28/17 17:30 (Glucagon Inj) 1 mg UNSCH PRN OTHER 08/28/17 17:30 (Lopressor) 50 mg BID PO 08/29/17 09:00 08/31/17 10:32 (Pepcid) 10 mg BID PO 08/28/17 21:00 08/31/17 10:33 (Pill Splitter) 1 ea UNSCH PRN OTHER 08/28/17 18:15 (Lovenox Inj) 40 mg Q24H SQ 08/29/17 14:00 08/30/17 14:04 (Mucinex Er) 600 mg BID PO 08/30/17 09:00 08/31/17 10:32 (Deltasone) 20 mg BID PO 08/31/17 09:00 08/31/17 10:32 Azithromycin 500 mg/Sodium Chloride 250 ml @ 250 mls/hr Q24H IV 08/31/17 11:00 Vital Signs / I&O Vital Signs Date Time Temp Pulse Resp B/P (MAP) Pulse Ox O2 Delivery O2 Flow Rate FiO2 08/31/17 11:22 97 21 08/31/17 08:00 96.7 62 20 123/68 (86) 93 08/31/17 03:49 98.2 70 18 137/63 (87) 96 08/31/17 00:12 65 08/31/17 00:00 97.9 78 18 154/79 (104) 97 08/30/17 20:30 98.5 71 18 133/76 (95) 96 08/30/17 19:15 97 21 08/30/17 16:05 98.2 68 20 137/70 (92) 96 Physical Exam GENERAL: NAD, AAOx3 SKIN: Warm and dry. HEAD: Atraumatic. Normocephalic. EYES: Pupils equal and round. No scleral icterus. No injection or drainage. ENT: No nasal bleeding or discharge. Mucous membranes pink and moist. NECK: Trachea midline. No JVD. CARDIOVASCULAR: Regular rate and rhythm. RESPIRATORY: No accessory muscle use. Decreased breath sounds bilaterally GASTROINTESTINAL: Abdomen soft, non-tender, nondistended. Hepatic and splenic margins not palpable. MUSCULOSKELETAL: Trace edema NEUROLOGICAL: Awake and alert. No obvious cranial nerve deficits. Motor grossly within normal limits. Five out of 5 muscle strength in the arms and legs. Normal speech. PSYCHIATRIC: Appropriate mood and affect; insight and judgment normal. Laboratory Laboratory Tests Test 08/31/17 04:38 White Blood Count 2.1 TH/MM3 Red Blood Count 4.73 MIL/MM3 Hemoglobin 13.3 GM/DL Hematocrit 40.0 % Mean Corpuscular Volume 84.7 FL Mean Corpuscular Hemoglobin 28.1 PG Mean Corpuscular Hemoglobin Concent 33.2 % Red Cell Distribution Width 14.0 % Platelet Count 169 TH/MM3 Mean Platelet Volume 9.3 FL Neutrophils (%) (Auto) 66.6 % Lymphocytes (%) (Auto) 24.7 % Monocytes (%) (Auto) 8.6 % Eosinophils (%) (Auto) 0.0 % Basophils (%) (Auto) 0.1 % Neutrophils # (Auto) 1.4 TH/MM3 Lymphocytes # (Auto) 0.5 TH/MM3 Monocytes # (Auto) 0.2 TH/MM3 Eosinophils # (Auto) 0.0 TH/MM3 Basophils # (Auto) 0.0 TH/MM3 CBC Comment DIFF FINAL Differential Comment Blood Urea Nitrogen 23 MG/DL Creatinine 0.90 MG/DL Random Glucose 180 MG/DL Calcium Level 9.1 MG/DL Sodium Level 136 MEQ/L Potassium Level 4.9 MEQ/L Chloride Level 100 MEQ/L Carbon Dioxide Level 29.2 MEQ/L Anion Gap 7 MEQ/L Estimat Glomerular Filtration Rate 61 ML/MIN Assessment and Plan Problem List: (1) Elevated troponin ICD Codes: R74.8 - Abnormal levels of other serum enzymes (2) Coronary artery disease ICD Codes: I25.10 - Coronary artery disease Status: Acute (3) Hypertension ICD Codes: I10 - Hypertension Status: Acute (4) HLD (hyperlipidemia) ICD Codes: E78.5 - HLD (hyperlipidemia) Status: Acute Permanent Comment: 07/2014: LDL-84, HDL-53, Trig-87 Last Edited By: Chuckie Peoples on Jul 14, 2014 00:18 (5) Asthma ICD Codes: J45.909 - Asthma Status: Acute Assessment and Plan 1) Symptoms now appears more pulmonary, better with steroids and breathing treatments 2) Stress testing showing no ischemia, decreased EF most likely gating issue 3) EF 50-55%, mild to moderate MR/TR 4) Cardiovascularly stable for discharge, follow up with Dr. Jones as previously scheduled Problem Qualifiers (1) Coronary artery disease: Qualified Codes: I25.10 - Atherosclerotic heart disease of [place] coronary artery without angina pectoris (2) Hypertension: Qualified Codes: I10 - Essential (primary) hypertension Olvin Moreno DO Aug 31, 2017 12:03
[2017-08-31] MEDS: AZITHROMYCIN INJ 500 MG in SODIUM CHLOR 0.9% 250 ML INJ 250 ML IV SCH (13:00)
[2017-08-31] MEDS: ENOXAPARIN SODIUM 40 MG/0.4 ML SYRINGE SQ SCH (15:56)
[2017-09-01] VITALS: PULSE 78
[2017-09-01] MEDS: RESP: ALBUTEROL 2.5 MG/IPRATROPIUM 0.5 MG NEB (SCH) INH ×2 (03:20→08:15)
[2017-09-01 04:03] VITALS: PULSE 78
[2017-09-01 04:32] VITALS: BP 141/76; PULSE 78; RESP 18; TEMP 98; O2SAT 94
--- NOTE | 2017-09-01 06:39 | HHI.FPPN ---
Subjective Remarks No acute events overnight. Her breathing is about 50% improved since yesterday. She is able to walk to the bathroom without becoming short of breath. She feels stable on her feet. She does have decreased appetite. She denies any fevers or chills. (Brian Menard MD, R3) Objective Vitals Vital Signs Date Time Temp Pulse Resp B/P (MAP) Pulse Ox O2 Delivery O2 Flow Rate FiO2 09/01/17 04:32 98.0 78 18 141/76 (97) 94 09/01/17 04:03 78 09/01/17 00:00 78 08/31/17 21:28 98 21 08/31/17 20:47 98.1 87 18 158/74 (102) 97 08/31/17 20:00 72 08/31/17 16:15 68 08/31/17 16:00 96.3 69 20 130/68 (88) 97 08/31/17 12:00 98.4 69 20 120/71 (87) 95 08/31/17 11:22 97 21 08/31/17 08:00 66 08/31/17 08:00 96.7 62 20 123/68 (86) 93 I/O 08/31/17 08/31/17 08/31/17 09/01/17 09/01/17 09/01/17 07:00 15:00 23:00 07:00 15:00 23:00 # Voids 2 (Brian Menard MD, R3) Result Diagram: 08/31/17 0438 08/31/17 0438 Objective Remarks GEN: Well-developed, well-nourished patient. No acute distress. CV: Regular rate and rhythm without obvious murmurs LUNGS: Breath sounds improved, less coarse today on exam. Still scattered wheezing on expiration throughout. GI: Nondistended. EXT: No edema. No calf tenderness. NEURO/PSYCH: Awake, alert. Appropriate insight and judgment. Normal speech (Brian Menard MD, R3) A/P Assessment and Plan 72-year-old female with history significant for CAD, HTN. Admitted for TIA evaluation below suspicion at this time. Most likely COPD exacerbation and possible cardiac influence of symptoms. Discharge Planning 09/01/17 (Brian Menard MD, R3) Attending Attestation PATIENT WAS SEEN AND EXAMINED WITH DR Tatiana GONZALEZ.THIS CASE WAS DISCUSSED WITH THE RESIDENT PHYSICIANS. I HAVE REVIEWED THE RECORD AND AGREE WITH THE ABOVE NOTE AND PLAN OF CARE WAS DISCUSSED. I HAVE AUTHORIZED THE ORDER SET. Patient feels stable for discharge. (Zhao Hernandez MD) Problem List: (1) COPD (chronic obstructive pulmonary disease) ICD Codes: J44.9 - Chronic obstructive pulmonary disease, unspecified Status: Acute Plan: Patient with history of moderate to severe COPD. Recently started on Levaquin for pneumonia. Lungs with very coarse sounds bilaterally. Increased with worsening generalized fatigue. Adequate O2 saturation on room air. 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 Also with exam findings patient may be having an underlying COPD exacerbation as well. -No leukocytosis, WBC mildly depressed at 3.8. Continue to decrease to 2.1 k on 08/31/2017. -Chest x-ray AP and lateral: Prominence of bilateral interstitial lungs within the mid and lower lobes may reflect edema secondary to an infectious etiology. This can be seen in the setting of viral or atypical pneumonia. -incentive spirometry -Echo is significant for increased pulmonary pressure (36 mm Hg) * would need repeat PFTs as an outpatient Medications: * Continue Levaquin (08/25-09/01) may require a long abx course. Add Azithromycin for enhanced atypical coverage. * IV steroids 24 hours due to recurrence of very coarse lung sounds. Resume PO steroids 08/31 with BID dosing. * Albuterol nebulizer * Continue home Symbicort and Spiriva (2) Shoulder pain, right ICD Codes: M25.511 - Pain in right shoulder Plan: Symptoms of right-sided pain starting in the shoulder, nausea, presyncope for her last week that has now increased in duration from 5 minutes to 30 minutes before complete resolution. Episode from 08/25 was associated with possible slurred speech and facial droop but patient was unaware of the symptoms as they were reported by her daughter. No focal deficits found on physical exam. Neurologically patient is intact. After thorough evaluation, low concern that this episode was actually related to a TIA. Symptoms may be related to infectious etiology from COPD exacerbation/pneumonia that may have contributed to unusual pattern of pain/symptoms. Right shoulder pain and right- sided body pain has now resolved. -Neuro checks -PT consulted: No discharge needs required Imaging: * Brain MRI: No evidence of acute abnormality. Age-related white matter changes. * Head MRA normal * Head CT: Unremarkable * Shoulder x-ray: Degenerative changes Medications: * Aspirin * Pravastatin * Metoprolol (3) TIA (transient ischemic attack) ICD Codes: G45.9 - Transient cerebral ischemic attack, unspecified Plan: Low concern that symptoms were actually related to a TIA but rather due to referred/myalgia type pain from possible infectious etiology. Stroke/TIA evaluation unremarkable. See more detail plan under right shoulder pain and COPD. (4) Coronary artery disease ICD Codes: I25.10 - Coronary artery disease Status: Acute Plan: History of CAD with a stent in place. Patient also has an atrial pacemaker. No defibrillator. Initial EKG unremarkable. Troponins slightly elevated but without EKG changes or chest pain. Did have a 10beat run of Vtach on the morning of 08/29, pt was asymptomatic. -BNP elevated likely from COPD, no/low concern for CHF exacerbation. -Echo: EF 50-55% with moderately dilated atria. Aortic valve sclerosis. Pulmonary pressure of 36 mm Hg. -Cardiac telemetry Cardiology consulted: appreciate recommendations * not apparent that she had a true TIA * pharmacologic nuclear stress test showed diffuse hypokinesia and EF of 35%. Spoke with cardiology and this decrease in EF is likely secondary to gating issue (lower amount of slides per frame) which can contribute to a lower EF on nuclear stress test. * Hx of multiple episodes of short wide complex tachycardias that were varsha to be atrial fibrillation with aberrancy. May be having a similar episode. -see medications above (5) Hypertension ICD Codes: I10 - Hypertension Status: Acute Plan: continue home medications (6) Nutrition, metabolism, and development symptoms ICD Codes: R63.8 - Other symptoms and signs concerning food and fluid intake Plan: Diet: Heart healthy Fluids: PO hydration Electrolytes: Unremarkable, continue to monitor DVT prophylaxis: Lovenox GI prophylaxis: H2 magdalena due to steroid use SDW Dr. Hernandez. (Brian Menard MD, R3) Problem Qualifiers (1) COPD (chronic obstructive pulmonary disease): Qualified Codes: J44.1 - Chronic obstructive pulmonary disease with (acute) exacerbation (2) Shoulder pain, right: Qualified Codes: M25.511 - Pain in right shoulder; G89.29 - Other chronic pain (3) TIA (transient ischemic attack): Qualified Codes: G45.1 - Carotid artery syndrome (hemispheric) (4) Hypertension: Qualified Codes: I10 - Essential (primary) hypertension Brian Menard MD, R3 Sep 01, 2017 06:39 Zhao Hernandez MD Sep 01, 2017 20:22
[2017-09-01 06:45] LABS: AUTOMATED NEUTROPHIL # 2.5 TH/MM3 (1.8-7.7); BASOPHIL % 0.2 % (0.0-2.0); HEMATOCRIT 40.8 % (35.0-46.0); HEMOGLOBIN 13.5 GM/DL (11.6-15.3); LYMPH % 23.8 % (9.0-44.0); LYMPHOCYTE # 0.9 TH/MM3 (1.0-4.8); MEAN CELL VOLUME 84.8 FL (80.0-100.0); MEAN CORPUSCULAR HEMOGLOBIN 28.1 PG (27.0-34.0); MEAN CORPUSCULAR HGB CONC 33.1 % (32.0-36.0); MEAN PLATELET VOLUME 9.5 FL (7.0-11.0); MONO % 9.4 % (0.0-8.0); MONOCYTE # 0.4 TH/MM3 (0-0.9); NEUT % 66.6 % (16.0-70.0); PLATELET COUNT 170 TH/MM3 (150-450); RED BLOOD COUNT 4.81 MIL/MM3 (4.00-5.30); RED CELL DISTRIBUTION WIDTH 13.7 % (11.6-17.2); WHITE BLOOD COUNT 3.8 TH/MM3 (4.0-11.0)
[2017-09-01 07:05] LABS: BICARBONATE 31.7 MEQ/L (21.0-32.0); CALCIUM 9.2 MG/DL (8.5-10.1); CREATININE 0.87 MG/DL (0.50-1.00)
[2017-09-01 08:00] VITALS: BP 136/75; PULSE 71; PULSE 77; RESP 20; TEMP 97.5; O2SAT 93
[2017-09-01] MEDS: INSULIN ASPART SUPPLEMENTAL SCALE SQ SCH (08:00)
[2017-09-01] MEDS: DOCUSATE SODIUM 50 MG/SENNA 8.6 MG TAB PO SCH (09:00)
--- NOTE | 2017-09-01 09:24 | HHI.DCPOC ---
Discharge Care Plan Diagnosis: (1) COPD (chronic obstructive pulmonary disease) (2) Shoulder pain, right (3) Elevated brain natriuretic peptide (BNP) level (4) Elevated troponin Goals to Promote Your Health * To prevent worsening of your condition and complications * To maintain your health at the optimal level Directions to Meet Your Goals Take your medications as prescribed Follow your dietary instruction Follow activity as directed Keep your appointments as scheduled Take your immunizations and boosters as scheduled If your symptoms worsen call your PCP, if no PCP go to Urgent Care Center or Emergency Room Smoking is Dangerous to Your Health. Avoid second hand smoke Call the 24-hour hour crisis hotline for domestic abuse at Brian Menard MD, R3 Sep 01, 2017 09:24
[2017-09-01] MEDS ORDERED: IPRASOL INH (09:53)
[2017-09-01] MEDS ORDERED: AZIT500T2 PO (09:53)
[2017-09-01] MEDS ORDERED: TIOT1AER2 INH (09:53)
[2017-09-01] MEDS ORDERED: ADVA250A INH (09:53)
[2017-09-01] MEDS ORDERED: guaiFENesin ER PO (09:53)
[2017-09-01] MEDS ORDERED: PRED20 PO (09:53)
[2017-09-01] MEDS: FAMOTIDINE 20 MG TAB PO SCH (09:59)
[2017-09-01] MEDS: ASPIRIN 81 MG CHEW TAB CHEW SCH (09:59)
[2017-09-01] MEDS: CITALOPRAM HYDROBROMIDE 20 MG TAB PO SCH (09:59)
[2017-09-01] MEDS: guaiFENesin E.R. 600 MG TAB PO SCH (09:59)
[2017-09-01] MEDS: predniSONE 20 MG TAB PO SCH (10:00)
[2017-09-01] MEDS: PRAVASTATIN SOD 40 MG TAB PO SCH (10:00)
[2017-09-01] MEDS: METOPROLOL TARTRATE 50 MG TAB PO SCH (10:00)
[2017-09-01] MEDS: LEVOFLOXACIN 750 MG TAB PO SCH (10:00)
[2017-09-01] MEDS: BUDESONIDE-FORMOTEROL 160/4.5 MCG INHALER INH SCH (10:03)
[2017-09-01] MEDS: TIOTROPIUM BROMIDE 18 MCG INH INH SCH (10:03)
[2017-09-01] MEDS: SODIUM CHLORIDE 0.9% FLUSH 10 ML FLUSH IV FLUSH SCH (10:05)
--- NOTE | 2017-09-01 10:05 | HHI.DS ---
Discharge Summary Admission Date Aug 30, 2017 at 10:51 Discharge Date: Sep 01, 2017 Admitting Diagnosis (1) COPD (chronic obstructive pulmonary disease) Plan: Patient with history of moderate to severe COPD. Recently started on Levaquin for pneumonia. Lungs with very coarse sounds bilaterally. Increased with worsening generalized fatigue. Adequate O2 saturation on room air. 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 Also with exam findings patient may be having an underlying COPD exacerbation as well. -No leukocytosis, WBC mildly depressed at 3.8. Continue to decrease to 2.1 k on 08/31/2017. -Chest x-ray AP and lateral: Prominence of bilateral interstitial lungs within the mid and lower lobes may reflect edema secondary to an infectious etiology. This can be seen in the setting of viral or atypical pneumonia. -incentive spirometry -Echo is significant for increased pulmonary pressure (36 mm Hg) * would need repeat PFTs as an outpatient Medications: * Continue Levaquin (08/25-may require a long abx course). Add Azithromycin for enhanced atypical coverage. * IV steroids 24 hours due to recurrence of very coarse lung sounds. Resume PO steroids 08/31 with BID dosing. * Albuterol nebulizer * Continue home Symbicort and Spiriva * may benefit from discontinuing beta magdalena if respiratory symptoms continue. This will need to be weighed against the cardiac benefit due to CAD history. ICD Codes: J44.9 - Chronic obstructive pulmonary disease, unspecified Status: Acute (2) Shoulder pain, right Plan: Symptoms of right-sided pain starting in the shoulder, nausea, presyncope for her last week that has now increased in duration from 5 minutes to 30 minutes before complete resolution. Episode from 08/25 was associated with possible slurred speech and facial droop but patient was unaware of the symptoms as they were reported by her daughter. No focal deficits found on physical exam. Neurologically patient is intact. After thorough evaluation, low concern that this episode was actually related to a TIA. Symptoms may be related to infectious etiology from COPD exacerbation/pneumonia that may have contributed to unusual pattern of pain/symptoms. Right shoulder pain and right- sided body pain has now resolved. -Neuro checks -PT consulted: No discharge needs required Imaging: * Brain MRI: No evidence of acute abnormality. Age-related white matter changes. * Head MRA normal * Head CT: Unremarkable * Shoulder x-ray: Degenerative changes Medications: * Aspirin * Pravastatin * Metoprolol ICD Codes: M25.511 - Pain in right shoulder (3) TIA (transient ischemic attack) Plan: Low concern that symptoms were actually related to a TIA but rather due to referred/myalgia type pain from possible infectious etiology. Stroke/TIA evaluation unremarkable. See more detail plan under right shoulder pain and COPD. ICD Codes: G45.9 - Transient cerebral ischemic attack, unspecified (4) Coronary artery disease Plan: History of CAD with a stent in place. Patient also has an atrial pacemaker. No defibrillator. Initial EKG unremarkable. Troponins slightly elevated but without EKG changes or chest pain. Did have a 10beat run of Vtach on the morning of 08/29, pt was asymptomatic. -BNP elevated likely from COPD, no/low concern for CHF exacerbation. -Echo: EF 50-55% with moderately dilated atria. Aortic valve sclerosis. Pulmonary pressure of 36 mm Hg. -Cardiac telemetry Cardiology consulted: appreciate recommendations * not apparent that she had a true TIA * pharmacologic nuclear stress test showed diffuse hypokinesia and EF of 35%. Spoke with cardiology and this decrease in EF is likely secondary to gating issue (lower amount of slides per frame) which can contribute to a lower EF on nuclear stress test. * Hx of multiple episodes of short wide complex tachycardias that were varsha to be atrial fibrillation with aberrancy. May be having a similar episode. -see medications above ICD Codes: I25.10 - Coronary artery disease Status: Acute (5) Hypertension Plan: continue home medications ICD Codes: I10 - Hypertension Status: Acute (6) Nutrition, metabolism, and development symptoms Plan: Diet: Heart healthy Fluids: PO hydration Electrolytes: Unremarkable, continue to monitor DVT prophylaxis: Lovenox GI prophylaxis: H2 magdalena due to steroid use SDW Dr. Hernandez. ICD Codes: R63.8 - Other symptoms and signs concerning food and fluid intake Brief History Ms Starr is a 72-year-old female with history significant for CAD, COPD. Presented to the hospital after seeing her PCP in the clinic due to concerns for possible TIA. History obtained from both daughter and patient originally and just pt today. On 08/30 patient developed right shoulder pain that radiated to the right side of abdomen right leg and resolved after 5 minutes. Associated with nausea but no vomiting. She felt like she was going to pass out but did not. Daughter did give her nitroglycerin which caused the headache after the event. After the visit, she was completely asymptomatic but continued to have right shoulder pain that radiated to her hand. The same symptoms reoccurred the following day and again lasted for 5 minutes. However on 08/25, patient had recurrence of the same symptoms but this lasted for 30 minutes and was associated with confusion. Daughter also reported right lower face drooping very mildly and slightly slurred speech. There was no associated vision changes. Symptoms completely resolved after this episode. During this episode, she did go to the ED in [facility] but was diagnosed with pneumonia and given Levaquin. Last reported episode was the day before admission but no episodes today. No associated chest pain, SOB, or vomiting. Does endorse increased fatigue during usual activities around the house. She reported today that she has had increased fatigue for about 2 weeks, she states she has a hard time walking around her house without getting SOB and having to rest. She also states she hasn't done her usual energetic activities for months and wants to improve so she can get back to walking on the beach, etc. She has a nebulizer at home and gets some improvement with that but not as much recently. She had days of headache "all over her head" which she blames for the pain that went down the right side of her body. She denies any pain in her head today, nor pain in her body or neck at all. She reports breathing better now and being able to walk farther here in the hospital- to the bathroom and back which she could not do at home. She did receive po steroids here. Her MRI did not show any new findings or CVA. She had her pacemaker checked before and during her MRI which is evidently the new protocol. Her rhythm and rate are fine currently on her monitor. Her troponins are elevated and have remained so. She does not have renal failure and does have a cardiac history. It is unclear if any of her sxs could be heart related vs lung. It is suggestive of lung problems that she improved so much with po steroids overnight. CBC/BMP: 09/01/17 0545 09/01/17 0545 Significant Findings Laboratory Tests Test 08/30/17 07:35 08/31/17 04:38 09/01/17 05:45 White Blood Count 2.7 TH/MM3 (4.0-11.0) 2.1 TH/MM3 (4.0-11.0) 3.8 TH/MM3 (4.0-11.0) Monocytes (%) (Auto) 15.0 % (0.0-8.0) 8.6 % (0.0-8.0) 9.4 % (0.0-8.0) Neutrophils # (Auto) 1.3 TH/MM3 (1.8-7.7) 1.4 TH/MM3 (1.8-7.7) Blood Urea Nitrogen 20 MG/DL (7-18) 23 MG/DL (7-18) 26 MG/DL (7-18) Estimat Glomerular Filtration Rate 81 ML/MIN (>89) 61 ML/MIN (>89) 64 ML/MIN (>89) Lymphocytes # (Auto) 0.5 TH/MM3 (1.0-4.8) 0.9 TH/MM3 (1.0-4.8) Random Glucose 180 MG/DL (74-106) 129 MG/DL (74-106) PE at Discharge GEN: Well-developed, well-nourished patient. No acute distress. CV: Regular rate and rhythm without obvious murmurs LUNGS: Very coarse breath sounds bilaterally, worse than yesterday. Mild accessory muscle use. GI: Nondistended. EXT: No edema. No calf tenderness. NEURO/PSYCH: Awake, alert. Appropriate insight and judgment. Normal speech Hospital Course 72-year-old very pleasant female, with a past medical history significant for coronary artery disease, COPD, tobacco abuse, depression. She initially presented with strokelike symptoms, complaining of right-sided facial droop, as well as weakness down the right side of her body. She was also complaining of right-sided shoulder pain, after suffering a fall. A CVA was ruled out with a brain MRI and MRA. There were no acute abnormalities. Throughout her hospitalization, she continues to have worsening shortness of breath. Chest x- ray showed an atypical pneumonia. She was started on Levaquin therapy for this. Also, she was started on oral steroids and her respiratory status improves. Her troponins were slightly elevated during her hospitalization, and a BNP was 451. A nuclear stress test was performed by cardiology, which showed no perfusion deficits. It did show a decreased EF of 35%, however this was likely due to a gating effect. In the last day of her hospitalization, she was feeling much better, ambulating independently without becoming short of breath, and passed her home oxygen walking test. She should have a follow-up with her PCP in 2-3 days for underlying lung disease, atypical pneumonia, and worsening CHF. Pt Condition on Discharge: Stable Discharge Disposition: Discharge Home Discharge Instructions DIET: Follow Instructions for: As Tolerated, No Restrictions Activities you can perform: Regular-No Restrictions Brian Menard MD, R3 Sep 01, 2017 10:05
[2017-09-01] MEDS: AZITHROMYCIN INJ 500 MG in SODIUM CHLOR 0.9% 250 ML INJ 250 ML IV SCH (11:00)
== END 2017-09-01 12:09 | disposition home or self-care (01) | DRG 190 ==
LOC: NEPC 10:25 → NEDA 14:28 → NEPGCP 17:19 → OBSVTOIN 08-30 10:51
PROVIDERS: ADMIT Family Medicine; ATTEND Family Medicine
DX: J44.0 Chronic obstructive pulmonary disease with (acute) lower respiratory infection (principal); J18.9 Pneumonia, unspecified organism; I47.2 Ventricular tachycardia; I35.8 Other nonrheumatic aortic valve disorders; M79.1 Myalgia; M25.511 Pain in right shoulder; I10 Essential (primary) hypertension; F32.9 Major depressive disorder, single episode, unspecified; Z87.891 Personal history of nicotine dependence; I25.10 Atherosclerotic heart disease of native coronary artery without angina pectoris; Z95.5 Presence of coronary angioplasty implant and graft; Z95.0 Presence of cardiac pacemaker; E78.5 Hyperlipidemia, unspecified; Z98.84 Bariatric surgery status; E53.8 Deficiency of other specified B group vitamins; N32.81 Overactive bladder; K21.9 Gastro-esophageal reflux disease without esophagitis; G47.33 Obstructive sleep apnea (adult) (pediatric); Z96.651 Presence of right artificial knee joint; Z79.82 Long term (current) use of aspirin
CPT/HCPCS: 70450; 70544; 70551; 71045; 71046; 73030; 78452; 80048; 80053; 80061; 82948; 83036; 83880; 84484; 85025; 85610; 85730; 87449; 87804; 93005; 93017; 93306; 93971; 94150; 94618; 94640; 94664; 99285; A9502; G0378; G8987-GP; G8988-GP; J0456; J1650; J1815; J2785; J2920; J7050; J7512

== ENCOUNTER 2017-09-22 13:55 | Emergency (ER) | payer MEDICARE, OTHER ==
[~2017-09-22] VITALS: Ht 167.6 cm; Wt 84.5 kg
[~2017-09-22 13:55] MED LIST changes: +ASPI-516 CHEW; -ASPI1TAB69 PO; +AZIT500T2 PO; -DICL1GEL TOPICAL; -GABA300C5 PO; -GINS100C2 PO; +IPRASOL INH; -MELO15TA20 PO; -MELO7.5T27 PO; -MULT1TAB84 PO; +MULTTAB67 PO; -OMEP40CA2 PO; +PRED20 PO; +guaiFENesin ER PO
[2017-09-22 13:56] VITALS: BP 106/59; PULSE 87; RESP 18; TEMP 98.8; O2SAT 96
[2017-09-22 17:38] LABS: AUTOMATED NEUTROPHIL # 6.8 TH/MM3 (1.8-7.7); BASOPHIL % 0.1 % (0.0-2.0); EOSINOPHIL # 0.2 TH/MM3 (0-0.4); EOSINOPHIL % 1.7 % (0.0-4.0); HEMATOCRIT 41.4 % (35.0-46.0); HEMOGLOBIN 13.8 GM/DL (11.6-15.3); LYMPH % 20.8 % (9.0-44.0); MEAN CELL VOLUME 86.6 FL (80.0-100.0); MEAN CORPUSCULAR HEMOGLOBIN 28.8 PG (27.0-34.0); MEAN CORPUSCULAR HGB CONC 33.3 % (32.0-36.0); MEAN PLATELET VOLUME 8.5 FL (7.0-11.0); MONO % 5.8 % (0.0-8.0); MONOCYTE # 0.5 TH/MM3 (0-0.9); NEUT % 71.6 % (16.0-70.0); PLATELET COUNT 160 TH/MM3 (150-450); RED BLOOD COUNT 4.78 MIL/MM3 (4.00-5.30); RED CELL DISTRIBUTION WIDTH 15.3 % (11.6-17.2); WHITE BLOOD COUNT 9.5 TH/MM3 (4.0-11.0)
[2017-09-22 18:00] LABS: ALBUMIN 3.5 GM/DL (3.4-5.0); ALT (GPT) 24 U/L (10-53); AST (GOT) 24 U/L (15-37); BICARBONATE 32.3 MEQ/L (21.0-32.0); BLOOD UREA NITROGEN 26 MG/DL (7-18); CALCIUM 8.6 MG/DL (8.5-10.1); CHLORIDE 103 MEQ/L (98-107); CREATININE 0.74 MG/DL (0.50-1.00); GLOMERULAR FILTRATION RATE 77 ML/MIN (>89); GLUCOSE,RANDOM 92 MG/DL (74-106); SODIUM (NA) 140 MEQ/L (136-145)
[2017-09-22 18:03] LABS: ALKALINE PHOSPHATASE 79 U/L (45-117); TOTAL BILIRUBIN ADULT 0.6 MG/DL (0.2-1.0); TOTAL PROTEIN 6.4 GM/DL (6.4-8.2)
[2017-09-22] MEDS ORDERED: PRED10 PO (18:14)
[2017-09-22] MEDS ORDERED: NYST1000 SWISH-SWAL (18:14)
[2017-09-22] MEDS ORDERED: CEFD300C PO (18:14)
[2017-09-22] MEDS ORDERED: TIOT1AER INH (18:14)
[2017-09-22] MEDS ORDERED: UMEC1INH INH (18:14)
--- NOTE | 2017-09-22 18:46 | PD ---
HPI Chief Complaint: GI Complaint Time Seen by Provider: 18:00 Travel History International Travel<30 days: No Contact w/Intl Traveler<30days: No Traveled to known affect area: No History of Present Illness HPI 72-year-old female presents emergency department with a 3 day history of melena and hematochezia. States that she is receiving home health care and her home health nurse was concerned of this finding. Patient denies nausea or vomiting. Denies abdominal pain. States he has a history of a Myrna-en-Y gastric bypass , cholecystectomy, and partial hysterectomy. Never had a colonoscopy. She does have a history of a stomach biopsy for an unknown reason. She does not know the results. Patient denies fever, chills, chest pain, shortness of breath , back pain. She is not on blood thinners. Patient has a history of COPD, gastric reflux, CAD with stent. She was recently in the hospital for pneumonia , discharged September 01 with home health care. PFSH Past Medical History Hx Anticoagulant Therapy: Yes (asa) Arthritis: Yes Asthma: Yes Anxiety: Yes Depression: Yes Cancer: No Cardiac Catheterization: Yes Cardiovascular Problems: Yes (CAD) High Cholesterol: Yes Chest Pain: Yes Cerebrovascular Accident: Yes (? TIA) Coronary Artery Disease: Yes Diabetes: No Diminished Hearing: No Endocrine: No Gastrointestinal Disorders: No GERD: Yes Genitourinary: No Hypertension: Yes Immune Disorder: No Implanted Vascular Access Dvce: Yes Musculoskeletal: No Neurologic: No Psychiatric: Yes Reproductive: No Respiratory: Yes (Pneumonia dx on 08/25) Myocardial Infarction: No : 5 Para: 2 Ectopic : Yes Past Surgical History Abdominal Surgery: Yes (GASTRIC BYPASS) Appendectomy: Yes Body Medical Devices: pacer Cardiac Surgery: Yes (CARDIAC STENT ) Cholecystectomy: Yes Coronary Stent: Yes (X1) Gynecologic Surgery: Yes (ECTOPIC PREG. SURGERY) Other Surgery: Yes Social History Alcohol Use: No Tobacco Use: No Substance Use: No Allergies-Medications (Allergen,Severity, Reaction): Coded Allergies: lisinopril (Unverified Allergy, Severe, 08/28/17) Reported Meds & Prescriptions Reported Meds & Active Scripts Active Duoneb (Ipratropium-Albuterol Neb) 0.5-2.5 Mg/3 Ml Neb 1 Nebule INH Q4HR NEB Prednisone 20 Mg Tab 20 Mg PO BID Advair Diskus Inh (Fluticasone-Salmeterol Inh) 250-50 Mcg/Blist Aer 1 Puff INH BID Rinse mouth after use. Citalopram (Citalopram Hydrobromide) 20 Mg Tab 20 Mg PO DAILY Albuterol Neb (Albuterol Sulfate) 2.5 Mg/3 Ml Neb 2.5 Mg NEB Q4HR NEB PRN Cyanocobalamin Inj (Cyanocobalamin) 1,000 Mcg/Ml Inj 1,000 Mcg IM Q30D Metoprolol Tartrate 50 Mg Tab 50 Mg PO BID Amlodipine (Amlodipine Besylate) 5 Mg Tab 5 Mg PO DAILY Reported Prednisone 10 Mg Tab 10 Mg PO DAILY Stiolto Respimat Inh (Tiotropium-Olodaterol Inh) 2.5-2.5 Mcg/Act Aero 2 Puff INH DAILY Incruse Ellipta Inh (Umeclidinium [place] Inh) 0.0625 Mg/Act Inh 62.5 Mcg INH DAILY Nystatin Liq 100,000 unit/ml Susp 5 Ml SWISH-SWAL BID Cefdinir 300 Mg Cap 300 Mg PO BID Aspirin 81 Mg Chew 81 Mg CHEW DAILY Multiple Vitamin 1 Tab 1 Tab PO DAILY Lovastatin 40 Mg Tab 40 Mg PO DAILY Nitrostat SL (Nitroglycerin) 0.4 Mg Subl 0.4 Mg SL DIRECTED PRN ONE TABLET UNDER THE TONGUE NEEDED FOR CHEST PAIN, MAY REPEAT EVERY FIVE MINUTES FOR A TOTAL OF 3 DOSES OR CALL 911 IF NO RELIEF Review of Systems Except as stated in HPI: all other systems reviewed are Neg Physical Exam Narrative GENERAL: Well-developed, well-nourished in no apparent distress SKIN: Focused skin assessment warm/dry. HEAD: Atraumatic. Normocephalic. EYES: Pupils equal and round. No scleral icterus. No injection or drainage. ENT: No nasal bleeding or discharge. Mucous membranes pink and moist. NECK: Trachea midline. No JVD. CARDIOVASCULAR: Regular rate and rhythm. No murmur appreciated. RESPIRATORY: No accessory muscle use. Clear to auscultation. Breath sounds equal bilaterally. GASTROINTESTINAL: Abdomen soft, left lower quadrant tenderness with this smooth mass, no rebound tenderness MUSCULOSKELETAL: No obvious deformities. No clubbing. No cyanosis. No edema. NEUROLOGICAL: Awake and alert. No obvious cranial nerve deficits. Motor grossly within normal limits. Normal speech. PSYCHIATRIC: Appropriate mood and affect; insight and judgment normal. Data Data Last Documented VS Vital Signs Date Time Temp Pulse Resp B/P (MAP) Pulse Ox O2 Delivery O2 Flow Rate FiO2 09/22/17 21:57 09/22/17 19:47 68 20 96 09/22/17 13:56 98.8 Room Air Orders Orders Complete Blood Count With Diff (09/22/17 14:08) Comprehensive Metabolic Panel (09/22/17 14:08) Prothrombin Time / Inr (Pt) (09/22/17 14:08) Act Partial Throm Time (Ptt) (09/22/17 14:08) Ct Abd/Pel W Iv Contrast(Rout) (09/22/17 ) Iohexol 350 Inj (Omnipaque 350 Inj) (09/22/17 20:50) Ed Discharge Order (09/22/17 21:42) Labs Laboratory Tests Test 09/22/17 17:10 White Blood Count 9.5 TH/MM3 Red Blood Count 4.78 MIL/MM3 Hemoglobin 13.8 GM/DL Hematocrit 41.4 % Mean Corpuscular Volume 86.6 FL Mean Corpuscular Hemoglobin 28.8 PG Mean Corpuscular Hemoglobin Concent 33.3 % Red Cell Distribution Width 15.3 % Platelet Count 160 TH/MM3 Mean Platelet Volume 8.5 FL Neutrophils (%) (Auto) 71.6 % Lymphocytes (%) (Auto) 20.8 % Monocytes (%) (Auto) 5.8 % Eosinophils (%) (Auto) 1.7 % Basophils (%) (Auto) 0.1 % Neutrophils # (Auto) 6.8 TH/MM3 Lymphocytes # (Auto) 2.0 TH/MM3 Monocytes # (Auto) 0.5 TH/MM3 Eosinophils # (Auto) 0.2 TH/MM3 Basophils # (Auto) 0.0 TH/MM3 CBC Comment DIFF FINAL Differential Comment Prothrombin Time 10.0 SEC Prothromb Time International Ratio 1.0 RATIO Activated Partial Thromboplast Time 21.5 SEC Blood Urea Nitrogen 26 MG/DL Creatinine 0.74 MG/DL Random Glucose 92 MG/DL Total Protein 6.4 GM/DL Albumin 3.5 GM/DL Calcium Level 8.6 MG/DL Alkaline Phosphatase 79 U/L Aspartate Amino Transf (AST/SGOT) 24 U/L Alanine Aminotransferase (ALT/SGPT) 24 U/L Total Bilirubin 0.6 MG/DL Sodium Level 140 MEQ/L Potassium Level 5.1 MEQ/L Chloride Level 103 MEQ/L Carbon Dioxide Level 32.3 MEQ/L Anion Gap 5 MEQ/L Estimat Glomerular Filtration Rate 77 ML/MIN MDM Medical Decision Making Medical Screen Exam Complete: Yes Emergency Medical Condition: Yes Differential Diagnosis Diverticulitis, gastric reflux, gastritis, PUD Narrative Course 72-year-old female presents emergency department with a 3 day history of melena and hematochezia. States that she is receiving home health care and her home health nurse was concerned of this finding. Patient denies nausea or vomiting. Denies abdominal pain. States he has a history of a Myrna-en-Y gastric bypass , cholecystectomy, and partial hysterectomy. Never had a colonoscopy. She does have a history of a stomach biopsy for an unknown reason. She does not know the results. Patient denies fever, chills, chest pain, shortness of breath , back pain. She is not on blood thinners. Patient has a history of COPD, gastric reflux, CAD with stent. She was recently in the hospital for pneumonia , discharged September 01 with home health care. Vital signs stable. Laboratory Tests Test 09/22/17 17:10 White Blood Count 9.5 TH/MM3 Red Blood Count 4.78 MIL/MM3 Hemoglobin 13.8 GM/DL Hematocrit 41.4 % Mean Corpuscular Volume 86.6 FL Mean Corpuscular Hemoglobin 28.8 PG Mean Corpuscular Hemoglobin Concent 33.3 % Red Cell Distribution Width 15.3 % Platelet Count 160 TH/MM3 Mean Platelet Volume 8.5 FL Neutrophils (%) (Auto) 71.6 % Lymphocytes (%) (Auto) 20.8 % Monocytes (%) (Auto) 5.8 % Eosinophils (%) (Auto) 1.7 % Basophils (%) (Auto) 0.1 % Neutrophils # (Auto) 6.8 TH/MM3 Lymphocytes # (Auto) 2.0 TH/MM3 Monocytes # (Auto) 0.5 TH/MM3 Eosinophils # (Auto) 0.2 TH/MM3 Basophils # (Auto) 0.0 TH/MM3 CBC Comment DIFF FINAL Differential Comment Prothrombin Time 10.0 SEC Prothromb Time International Ratio 1.0 RATIO Activated Partial Thromboplast Time 21.5 SEC Blood Urea Nitrogen 26 MG/DL Creatinine 0.74 MG/DL Random Glucose 92 MG/DL Total Protein 6.4 GM/DL Albumin 3.5 GM/DL Calcium Level 8.6 MG/DL Alkaline Phosphatase 79 U/L Aspartate Amino Transf (AST/SGOT) 24 U/L Alanine Aminotransferase (ALT/SGPT) 24 U/L Total Bilirubin 0.6 MG/DL Sodium Level 140 MEQ/L Potassium Level 5.1 MEQ/L Chloride Level 103 MEQ/L Carbon Dioxide Level 32.3 MEQ/L Anion Gap 5 MEQ/L Estimat Glomerular Filtration Rate 77 ML/MIN Abdomen pelvis CT with IV contrast ordered as the physical exam findings were concerning. Last Impressions Abdomen/Pelvis CT 09/22/17 0000 Signed Impressions: Service Date/Time: Friday, September 22, 2017 20:43 - CONCLUSION: 1. Postsurgical features of prior gastric bypass and small bowel anastomosis. No evidence for bowel obstruction, bowel infarction or perforation. No focal drainable fluid collection in the abdomen. 2. Punctate bilateral nonobstructing renal calyceal calculi. 3. Additional ancillary findings, as above. oRney Rios MD Patient should follow-up with her primary care physician and consider follow-up with a technologist development. There is no evidence of anemia today. Pt asymptomatic. He has a home health nurse and therefore is monitored closely. [facility]pt Point of Care Internal Pos. & Neg. Controls: Passed Fecal Specimen Occult Blood: Positive (black stools with red tinge) Diagnosis Primary Impression: Melena Referrals: [facility] Additional Instructions: Follow-up with a technologist development and your primary care physician regarding these findings today. If you develop increased bright red bleeding, shortness of breath, or excessive fatigue, return to the ED. Disposition: 01 DISCHARGE HOME Condition: Stable Leny Jay Sep 22, 2017 18:46
[2017-09-22 19:47] VITALS: BP 125/76; PULSE 68; RESP 20; O2SAT 96
[2017-09-22] MEDS ORDERED: IOHEXOL 350 MG/ML 10 ML VIAL (for RAD DIAG) IVCONTRAST ONE (20:50)
--- NOTE | 2017-09-22 21:27 | RADRPT ---
EXAM DATE/TIME: 09/22/2017 20:43 [facility] COMPARISON: No previous studies available for comparison. INDICATIONS : Lower abdomen pain with black stool. IV CONTRAST: 81 cc Omnipaque 350 (iohexol) IV ORAL CONTRAST: No oral contrast ingested. RADIATION DOSE: 11.73 CTDIvol (mGy) MEDICAL HISTORY : Cardiovascular disease. Hypertension. SURGICAL HISTORY : Appendectomy. Cholecystectomy.Gastric bypass. ENCOUNTER: Initial ACUITY: 1 day PAIN SCALE: 7/10 LOCATION: Bilateral lower quadrant TECHNIQUE: Volumetric scanning of the abdomen and pelvis was performed. Using automated exposure control and ad justment of the mA and/or kV according to patient size, radiation dose was kept as low as reasonably achievable to obtain optimal diagnostic quality images. DICOM format image data is available electro nically for review and comparison. FINDINGS: LOWER LUNGS: The visualized lower lungs are clear. LIVER: Gallbladder is surgically absent. Mild diffuse intrahepatic and extra hepatic ductal dilatation which likely reflects reservoir effect. There is otherwise grossly unremarkable. SPLEEN: Normal size without lesion. PANCREAS: Within normal limits. KIDNEYS: Small punctate bilateral calyceal calculi. Central parapelvic cyst in the superior pole of the left k idney. Kidneys otherwise demonstrate symmetrical enhancement. ADRENAL GLANDS: Within normal limits. VASCULAR: Moderate atherosclerotic calcifications of the abdominal aorta without aneurysm. BOWEL/MESENTERY: Postsurgical features of gastric bypass and prior small bowel anastomosis. Bowel appear grossly unrem arkable without evidence for obstruction. No pneumatosis or free air. No significant free fluid. ABDOMINAL WALL: Postsurgical features of prior anterior abdominal wall mesh repair. RETROPERITONEUM: There is no lymphadenopathy. BLADDER: Moderately distended without focal other malady. REPRODUCTIVE: Within normal limits. INGUINAL: There is no lymphadenopathy or hernia. MUSCULOSKELETAL: Degenerative spondylosis of the lower lumbar spine. CONCLUSION: 1. Postsurgical features of prior gastric bypass and small bowel anastomosis. No evidence for bowel o bstruction, bowel infarction or perforation. No focal drainable fluid collection in the abdomen. 2. Punctate bilateral nonobstructing renal calyceal calculi. 3. Additional ancillary findings, as above. Roney Rios MD on September 22, 2017 at 21:20 Board Certified Radiologist. This report was verified electronically.
--- NOTE | 2017-09-22 21:41 | PD ---
Data Data Last Documented VS Vital Signs Date Time Temp Pulse Resp B/P (MAP) Pulse Ox O2 Delivery O2 Flow Rate FiO2 09/22/17 19:47 68 20 125/76 (92) 96 09/22/17 13:56 98.8 Room Air Orders Orders Complete Blood Count With Diff (09/22/17 14:08) Comprehensive Metabolic Panel (09/22/17 14:08) Prothrombin Time / Inr (Pt) (09/22/17 14:08) Act Partial Throm Time (Ptt) (09/22/17 14:08) Ct Abd/Pel W Iv Contrast(Rout) (09/22/17 ) Iohexol 350 Inj (Omnipaque 350 Inj) (09/22/17 20:50) Labs Laboratory Tests Test 09/22/17 17:10 White Blood Count 9.5 TH/MM3 Red Blood Count 4.78 MIL/MM3 Hemoglobin 13.8 GM/DL Hematocrit 41.4 % Mean Corpuscular Volume 86.6 FL Mean Corpuscular Hemoglobin 28.8 PG Mean Corpuscular Hemoglobin Concent 33.3 % Red Cell Distribution Width 15.3 % Platelet Count 160 TH/MM3 Mean Platelet Volume 8.5 FL Neutrophils (%) (Auto) 71.6 % Lymphocytes (%) (Auto) 20.8 % Monocytes (%) (Auto) 5.8 % Eosinophils (%) (Auto) 1.7 % Basophils (%) (Auto) 0.1 % Neutrophils # (Auto) 6.8 TH/MM3 Lymphocytes # (Auto) 2.0 TH/MM3 Monocytes # (Auto) 0.5 TH/MM3 Eosinophils # (Auto) 0.2 TH/MM3 Basophils # (Auto) 0.0 TH/MM3 CBC Comment DIFF FINAL Differential Comment Prothrombin Time 10.0 SEC Prothromb Time International Ratio 1.0 RATIO Activated Partial Thromboplast Time 21.5 SEC Blood Urea Nitrogen 26 MG/DL Creatinine 0.74 MG/DL Random Glucose 92 MG/DL Total Protein 6.4 GM/DL Albumin 3.5 GM/DL Calcium Level 8.6 MG/DL Alkaline Phosphatase 79 U/L Aspartate Amino Transf (AST/SGOT) 24 U/L Alanine Aminotransferase (ALT/SGPT) 24 U/L Total Bilirubin 0.6 MG/DL Sodium Level 140 MEQ/L Potassium Level 5.1 MEQ/L Chloride Level 103 MEQ/L Carbon Dioxide Level 32.3 MEQ/L Anion Gap 5 MEQ/L Estimat Glomerular Filtration Rate 77 ML/MIN [facility] Medical Record Reviewed: Yes Supervised Visit with SHAYNA: Yes Narrative Course I, Dr. James, have reviewed the advance practice practitioner's documentation and am in agreement, met with the patient face to face, made the diagnosis, and the medical decision making was done by me. The patient was initially evaluated by Leny. Please see their complete history and physical. *My assessment and Findings: The patient presents with a history of dark stools for the last 3 days. The patient was recently discharged from the hospital related to diagnosis of pneumonia. She has home health that is coming out to assist with her care. During the course of the patient's emergency department visit, the patient's history, examination, and differential diagnosis were reviewed with the patient. The patient was placed on a lunchroom monitor with oximetry and frequent blood pressure monitoring. The patient had IV access obtained and blood work sent for analysis. 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 No focal drainable fluid collection in the abdomen. Punctate bilateral nonobstructing renal calculi. The patient's vital signs have remained stable during her evaluation. The patient has a primary care physician and home health that will be closely following with her. She was instructed regarding the importance of following up with her primary care physician in the next 2 days regarding this emergency department evaluation for referral to a stratigrapher for additional evaluation. The patient is resting comfortably and feels better, is alert and in no distress. The patient's results and examination findings were discussed with the patient. The repeat examination is unremarkable and benign. The history, exam, diagnostic testing, and current condition do not suggest any significant pathology to warrant further testing, continued ED treatment, admission, or surgical evaluation at this point. The vital signs have been stable. The patient does not have uncontrollable pain, intractable vomiting, or other significant symptoms. The patient's condition is stable and appropriate for discharge. The patient will pursue further outpatient evaluation with a primary care physician or other designated or consulting physician as indicated in the discharge instructions. The patient expressed understanding and was agreeable with this plan. Diagnosis Primary Impression: Melena Condition: Stable Vero James MD Sep 22, 2017 21:41
== END 2017-09-22 22:11 | disposition home or self-care (01) ==
LOC: NEPC 13:55
DX: K92.1 Melena (principal); E78.00 Pure hypercholesterolemia, unspecified; I10 Essential (primary) hypertension; Z98.84 Bariatric surgery status
CPT/HCPCS: 74177; 80053; 85025; 85610; 85730; 99284; Q9967

== ENCOUNTER 2017-12-23 06:31 | Day surgery (SDC) | payer MEDICARE, OTHER ==
[~2017-12-23] VITALS: Ht 165.1 cm; Wt 86.3 kg
[~2017-12-23 06:31] MED LIST changes: -AZIT500T2 PO; +CEFD300C PO; +NYST1000 SWISH-SWAL; +PRED10 PO; +TIOT1AER INH; -TIOT1AER2 INH; +UMEC1INH INH; -guaiFENesin ER PO
[2017-12-23] MEDS ORDERED: IOHEXOL 350 MG/ML 100 ML BTL (for Cath Lab) OTHER ONE (06:32)
[2017-12-23] MEDS ORDERED: IOHEXOL 350 MG/ML 50 ML BTL (for Cath Lab) OTHER ONE (06:32)
[2017-12-23] MEDS ORDERED: NS 1000P @30 MLS/HR (KVO) IV SCH (07:00)
[2017-12-23 07:39] VITALS: BP 135/69; PULSE 68; RESP 16; TEMP 98; O2SAT 98
[2017-12-23 07:43] LABS: AUTOMATED NEUTROPHIL # 4.9 TH/MM3 (1.8-7.7); BASOPHIL % 0.1 % (0.0-2.0); EOSINOPHIL # 0.2 TH/MM3 (0-0.4); EOSINOPHIL % 3.5 % (0.0-4.0); HEMOGLOBIN 11.9 GM/DL (11.6-15.3); LYMPH % 17.3 % (9.0-44.0); LYMPHOCYTE # 1.2 TH/MM3 (1.0-4.8); MEAN CELL VOLUME 87.2 FL (80.0-100.0); MEAN CORPUSCULAR HEMOGLOBIN 28.7 PG (27.0-34.0); MEAN CORPUSCULAR HGB CONC 32.9 % (32.0-36.0); MEAN PLATELET VOLUME 9.1 FL (7.0-11.0); MONOCYTE # 0.5 TH/MM3 (0-0.9); NEUT % 72.1 % (16.0-70.0); PLATELET COUNT 221 TH/MM3 (150-450); RED BLOOD COUNT 4.13 MIL/MM3 (4.00-5.30); RED CELL DISTRIBUTION WIDTH 14.5 % (11.6-17.2); WHITE BLOOD COUNT 6.9 TH/MM3 (4.0-11.0)
[2017-12-23] MEDS ORDERED: HYDR25TA5 PO (07:46)
[2017-12-23] MEDS ORDERED: OMEP20TA93 PO (07:46)
[2017-12-23] MEDS ORDERED: HEPARIN-NS/PF INJ 1,000 ML ONE (07:49)
[2017-12-23 07:55] LABS: PROTHROMBIN TIME - PATIENT 10.6 SEC (9.8-11.6)
[2017-12-23] MEDS ORDERED: NITROGLYCERIN INJ 5 ML ONE (07:58)
[2017-12-23] MEDS ORDERED: HEPARIN SODIUM - IV 10,000 UNITS/10 ML VIAL ONE (07:58)
[2017-12-23] MEDS ORDERED: VERAPAMIL HCL 5 MG/2 ML VIAL ONE (07:58)
[2017-12-23 08:02] LABS: BICARBONATE 28.5 MEQ/L (21.0-32.0); CALCIUM 8.6 MG/DL (8.5-10.1); CREATININE 0.8 MG/DL (0.50-1.00)
[2017-12-23] MEDS ORDERED: MIDAZOLAM HCL 2 MG/2 ML VIAL ONE (08:04)
[2017-12-23] MEDS ORDERED: HEPARIN-NS/PF INJ 500 ML ONE (08:51)
[2017-12-23] MEDS ORDERED: CLOPIDOGREL 300 MG TAB ONE (09:20)
--- NOTE | 2017-12-23 10:26 | CATHPROC ---
[employer] HIS Report Study Information Study Number Admission Scheduled Start Study Start [id number] Dec 23 2017 6:31AM 12/23/2017 Dec 23 2017 7:49AM [place] Service Cardiac Catheterization Admit Source Facility Department Other [facility] - Agent Producer Physician and Clinical Staff Initial Olvin Sarkar Gas Meter Installergalo Martinez RN, Torrey RecordBarbara Zuluaga,RT(R) Scrluis angel Pinto, Jessica,CHANNEL EXECUTIVE TECH2 Procedures Performed Procedure Location (Site) Vessel Name Coronary Angiograms LCA Left Coronary Coronary Angiograms RCA Right Coronary IVUS Radial (right) Radial Art. L Heart Cath PTCA DIAG Prox Left Coronary Wire insertion Radial (right) Radial Art. Equipment Time Emt Driver Description Size Mfg Part Number Used/Scraped [id number] 09:14 [employer] WIRE, ASAHI PROWATER 180CM 180CM Used *[id number] WIRE, BALANCE MIDDLEWEIGHT [id number] 08:36 [employer] 190CM Used 190CM *[id number] TRANSDUCER, TRUWAVE [id number] 08:13 PINTO JERONIMO * Used W/STOCKCOCK *[id number] [id number] *[id number] [id number] *[id number] 08:13 [employer] PACK, CCL CUSTOM * Used *[id number] 08:13 [employer] SUPPORT, ARTERIAL ADULT [id number] *[id number] Used BALLOON, 2.0 X 12MM NC [id number] 09:36 [employer] 12MM Used EUPHORA *[id number] 09:20 [employer] BALLOON, 2.0 X 6MM EUPHORA 6MM Used *[id number] 08:59 [employer]/AVE EBU 3.0 Z2 GUIDE CATHETER FR 6 Used *[id number] 08:36 [employer]/AVE EBU 3.5 Z2 GUIDE CATHETER FR 6 Used *[id number] 09:22 Shandong In spur [employer] MEDICAL 30 NANDINI INDEFLATOR Used *[id number] BAND, RADIAL COMPRESSION TR [id number] 10:02 Shandong In spur [employer] MEDICAL 24CM Used SHORT 24 *[id number] 08:13 [employer] WIRE, EXCHANGE 260CM 3MMJ 260CM Used *[id number] 08:13 NAMIC MANIFOLD, 4 PORT * Used *[id number] 08:13 [employer]COMED OMNIPAQUE, 350 MG, 150ML 150ML [id number] Used 09:20 [employer]COMED OMNIPAQUE, 350 MG, 150ML 150ML [id number] Used 09:20 [employer]ED OMNIPAQUE, 350 MG, 50ML 50ML [id number] Used [id number] 08:13 [facility] BLANKET,WARM AIR CCL * Used *[id number] SHEATH, FR6 TRANSRADIAL RM*[id number] 08:13 [employer] MEDICAL FR 6 Used SLENDER 10CM *[id number] CATHETER, [place] EYE SOBOBA [id number] 09:43 [employer] Used IMAGING *[id number] 08:38 [employer] PRIME WIRE, VERRATA 185CM 185CM Used *[id number] Equipment Model, Serial, Lot Number and Expiration Data Description Model Number Serial Number Lot Number Expiration Date CATHETER, [employer] [employer] SOBOBA 310 [id number] 11-01-2019 IMAGING PRIME WIRE, VERRATA 185CM 1942 [id number] 10-31-2020 History: Current Medications Medication Dosage/Unit Route Frequency Last Date/Time Taken Statins (any) NTG SL LOPRESSOR ASA History: Allergies Allergy Reaction lisinopril History: Risk Factors Family History of Hypertension Dyslipidemia Previous PA Previous Heart Failure Premature CAD Yes Yes No No No Prior Valve Prior PCI Prior PCIDate Prior CABG Surgery No Yes 05/10/2007 No Cerebrovascular Peripheral Artery Chronic Lung On Dialysis Diabetes Disease Disease Disease No Yes No Yes No History: Stress Tests Stress or Imaging Studies Performed Yes Standard Exercise Stress Test No Stress Echo No Stress Test SPECT Stress Test SPECT Result Stress Test SPECT Ischemia Risk/Extent Yes Positive Intermediate Stress Test CMR No Cardiac CTA Coronary Calcium Score No No History: Other Disease Selection Items COPD HTN History: Other Current Smoker Method Quit Packs a Day Years Used Pack Years No Cigarettes 30 Years Ago 2 27 54 Labs Hgb (g/dl) Hct (%) WBC (l/cumm) Platelets (thousands) 11.60-17.00 35.00-51.00 4.00-11.00 150.00-450.00 11.9 36 6.9 221 Glucose (mg/dl) BUN (mg/dl) Creatinine (mg/dl) BUN:Creatinine (1:x) 74.00-106.00 7.00-18.00 0.50-1.30 10.00-20.00 106 27 0.8 33.8 Na (meq/l) K (meq/l) 136.00-145.00 3.50-5.10 143 4.2 INR (PTT:PT) 0.90-1.10 1 CPK-MB (ng/ML) 0.50-3.60 Not Drawn Medication Medication Total Dose (Bolus/Oral) Medication Total Dosage/Unit 1% XYLOCAINE 5 mL FENTANYL 25 mcg HEPARIN 5500 units NTG (IC) 200 mcg RADIAL COCKTAIL 5 mL (Bolus) VERSED 1 mg Medications (Bolus/Oral) Medication Time Given Dosage/Unit Administered By Reason VERSED 12/23/2017 8:20:50 AM 1 mg Torrey Martinez RN 1 mg VERSED given in lab by Torrey Martinez RN in Left Antecubital via Peripheral IV. Ordered by lOvin Restrepo FENTANYL 12/23/2017 8:21:14 AM 25 mcg Torrey Martinez RN 25 mcg FENTANYL given in lab by Torrey Martinez RN in Left Antecubital via Peripheral IV. Ordered by Olvin Maki. 1% XYLOCAINE 12/23/2017 8:21:20 AM 5 mL Olvin Moreno 5 mL 1% XYLOCAINE given in lab by Olvin Moreno in Right Radial via Subcutaneous. RADIAL COCKTAIL 12/23/2017 8:23:00 AM 5 mL (Bolus) Olvin Moreno 5 mL (Bolus) RADIAL COCKTAIL given in lab by Olvin Moreno in Right Radial via Radial. Using [S olution Name]. Reason: Ntg 200mcg Verapamil 2.5mg Heparin 3500U. HEPARIN 12/23/2017 8:37:40 AM 5500 units Torrey Martinez RN 5500 units HEPARIN given in lab by Torrey Martinez RN in Left Antecubital via Peripheral IV. Ordered by Olvin Moreno. NTG (IC) 12/23/2017 9:26:34 AM 200 mcg Olvin Moreno 200 mcg NTG (IC) given in lab by Olvin Moreno in Right Radial via Intra-coronary. Medication (Drip) Medication Time Given Dosage/Unit Concentration/Unit Diluent (ml) Solution IV Solutions 12/23/2017 7:51:06 AM 50 mL (IV) NaCl .9 IV Solutions given in lab by Torrey Martinez RN in Left Antecubital via Peripheral IV. Pump/Drip Flow us ing NaCl .9. Initial Case Assessment Cardiovascular HR Rhythm NIBP Chest Pain 76 SR 144/80 0 Edema Present Skin color Skin None Normal Warm Dry Circulatory - Right Pulses Dorsalis Pedis Femoral Radial 2 2 2 Scale (0,1,2,3,4,d) Circulatory - Left Pulses Dorsalis Pedis Femoral Radial 2 2 Scale (0,1,2,3,4,d) Neurological State Oriented to time-place- Alert Moves all extremities person Respiration - General Respiration Rate SpO2 (%) (B/min) 15 97 Chronological Log Time Study Chronological Log 7:50:44 Patient arrived via Bed. 7:50:45 Patient Name, D.O.B, / Armband Verified By R.N. 7:50:45 Consent signed by the physician and the patient and verified by the Agent Producer staff. 7:50:46 Pre-op and post- op instructions given; patient acknowledges understanding of instructions . 7:50:47 Verbal Stimulation=2 Physical Stimulation=2 Airway=2 Respiration=2 TOTAL=8. (0=absent, 1=l imited, 2=present) 7:50:50 Presedation assessment performed by Agent Producer RN. 7:50:54 Allens test performed on the right radial and ulnar artery. 7:50:57 Patient has been NPO for More than 6Hrs. 7:50:58 Skin Breakdown- none per pt 7:50:59 Patient Warmer Placed on the Table. 7:51:00 Sheila Prominences Protected 7:51:02 A # 20 IV was noted in the Antecubital (left). Grade = 0 7:51:06 IV Solutions given in lab by Torrey Martinez RN in Left Antecubital via Peripheral IV. Pump/D rip Flow using NaCl .9. 7:51:08 History and physical on the chart or being dictated. Assessment: Initial Case, HR=76 BPM, Rhythm=SR, AUDC=208/80 mmhg, Chest Pain=0, Edema=None, [place] r=Normal, Skin = Warm, Dry Right Pulses: Jhonathan Ped=2, Femoral=2, Radial=2 7:51:09 Left Pulses: Jhonathan Ped=2, Femoral=2 Neurological: State=Alert, Ox3, JASSO Respiration: Resp=15 B/min, SpO2=97 % 7:59:00 Reference ECG taken Vitals capture started with the following parameters, Patient=Adult, Interval=5 min, Initial Pre xlaae=256 mmHg, 8:00:34 Deflation Rate=5 mmHg, Cuff placed on Left Arm 8:01:41 HR=76 bpm, MGAV=485/80 mmhg, SpO2=97.0 %, Resp=15 B/min 8:06:11 HR=82 bpm, VYRC=632/73 mmhg, SpO2=98.0 %, Resp=14 B/min 8:09:34 Right Radial and right groin prepped with 2% chlorhexidine, and draped after a 3 min. waitin g time. 8:11:04 HR=75 bpm, DBCX=623/84 mmhg, SpO2=97.0 %, Resp=17 B/min 8:15:32 MD arrived. 8:16:03 Pressure channel 1 zeroed. 8:16:12 HR=75 bpm, XFHP=969/68 mmhg, SpO2=98.0 %, Resp=13 B/min Time Out. Correct patient, correct procedure, correct physician, labs, allergies, and equipment verified with laborer pole crew 8:19:51 team present. Fire risk assesment completed (see hard stop sheet for coding). Time Out Concu rred by MD and individual staff in procedure. 8:20:50 1 mg VERSED given in lab by Torrey Martinez RN in Left Antecubital via Peripheral IV. Ordered Olvin Ro 8:20:54 Case Start 8:21:13 HR=77 bpm, OPTY=439/77 mmhg, SpO2=97.0 %, Resp=12 B/min 8:21:14 25 mcg FENTANYL given in lab by Torrey Martinez RN in Left Antecubital via Peripheral IV. Order ed by Olvin Moreno 8:21:20 5 mL 1% XYLOCAINE given in lab by Olvin Moreno in Right Radial via Subcutaneous. 8:22:16 Access site was Right Radial Artery. A SHEATH, FR6 TRANSRADIAL SLENDER 10CM FR 6 was advanced into the Radial (right) using the Deb potts 8:22:25 technique. 5 mL (Bolus) RADIAL COCKTAIL given in lab by Olvin Moreno in Right Radial via Radial. Usi ng [Solution Name]. 8:23:00 Reason: Ntg 200mcg Verapamil 2.5mg Heparin 3500U. A JR 4.0 INFINITI CATHETER FR 5 was advanced over a wire. OMNIPAQUE, 350 MG, 150ML 150ML was use d for 8:25:08 injections. Recorded Pressure: LV, HR=75, Condition=Condition 1 8:25:46 (Left Ventricle) LV 117/-1/7 Recorded Pressure: LV, Ao, HR=75, Condition=Condition 1 8:25:57 (Left Ventricle) LV 118/-2/6, (Aorta) Ao 111/60/82 8:26:18 HR=74 bpm, FCGM=812/57 mmhg, SpO2=91.0 %, Resp=15 B/min 8:26:44 The RCA was injected and visualized at various angles. OMNIPAQUE, 350 MG, 150ML 150ML used. Recorded Pressure: Ao, HR=69, Condition=Condition 1 8:26:53 (Aorta) Ao 97/54/71 After removing the current catheter a JL 3.5 INFINITI CATHETER FR 5 was advanced over a WIRE, EX CHANGE 260CM 8:27:39 3MMJ 260CM. 8:30:25 The LCA was injected and visualized at various angles. OMNIPAQUE, 350 MG, 150ML 150ML used. 8:31:11 HR=76 bpm, RNOQ=145/63 mmhg, SpO2=92 %, Resp=10 B/min 8:36:10 HR=72 bpm, PEGA=629/73 mmhg, SpO2=89.0 %, Resp=19 B/min 5500 units HEPARIN given in lab by Torrey Martinez RN in Left Antecubital via Peripheral IV. Ordere d by Olvin Moreno 8:37:40 G. After removing the current catheter a EBU 3.5 Z2 GUIDE CATHETER FR 6 was advanced over a WIRE, E XCHANGE 8:38:59 260CM 3MMJ 260CM. 8:41:13 HR=77 bpm, MCNT=022/65 mmhg, SpO2=92.0 %, Resp=17 B/min 8:45:02 A PRIME WIRE, VERRATA 185CM 185CM was inserted via Radial (right). 8:46:12 HR=77 bpm, TCTV=609/69 mmhg, SpO2=93.0 %, Resp=20 B/min 8:49:01 Prime Wire removed 8:49:43 A WIRE, EXCHANGE 260CM 3MMJ 260CM was inserted via Radial (right). 8:51:13 HR=76 bpm, PJDY=253/68 mmhg, SpO2=93.0 %, Resp=18 B/min 8:53:58 J Wire removed 8:55:00 A PRIME WIRE, VERRATA 185CM 185CM was inserted via Radial (right). 8:56:12 HR=76 bpm, RQNG=266/75 mmhg, SpO2=94.0 %, Resp=15 B/min 8:58:24 Prime Wire removed After removing the current catheter a EBU 3.0 Z2 GUIDE CATHETER FR 6 was advanced over a WIRE, E XCHANGE 8:58:36 260CM 3MMJ 260CM. 8:59:25 Activated Clotting Time Drawn 9:01:11 HR=77 bpm, QWLV=137/74 mmhg, SpO2=94.0 %, Resp=17 B/min 9:05:21 ACT (Normal Range 90-180) = 326 9:05:50 A PRIME WIRE, VERRATA 185CM 185CM was inserted via Radial (right). 9:06:14 HR=77 bpm, LJBB=724/76 mmhg, SpO2=94.0 %, Resp=23 B/min 9:07:50 Flow Wire was was placed in the OM1 Prox. The IFR measures 1.02 Percent. 9:09:15 Prime Wire removed 9:11:15 HR=79 bpm, QDBB=319/69 mmhg, SpO2=95.0 %, Resp=19 B/min 9:16:16 HR=80 bpm, YWDG=655/73 mmhg, SpO2=95.0 %, Resp=12 B/min 9:16:29 A WIRE, BALANCE MIDDLEWEIGHT 190CM 190CM was inserted via Radial (right). 9:18:41 Interventional wire has crossed the lesion in the diag 9:19:33 A WIRE, ASAHI PROWATER 180CM 180CM was inserted via Radial (right). A BALLOON, 2.0 X 6MM EUPHORA 6MM was inserted over WIRE, BALANCE MIDDLEWEIGHT 190CM 190CM via th e 9:20:53 Radial (right). 9:21:15 HR=81 bpm, AEPD=471/78 mmhg, SpO2=96.0 %, Resp=11 B/min A BALLOON, 2.0 X 6MM EUPHORA 6MM over a WIRE, BALANCE MIDDLEWEIGHT 190CM 190CM in the DIAG Prox was 9:21:40 inflated using a 30 NANDINI INDEFLATOR at 8 nandini for 40 sec. A BALLOON, 2.0 X 6MM EUPHORA 6MM over a WIRE, BALANCE MIDDLEWEIGHT 190CM 190CM in the DIAG Prox was 9:22:51 inflated using a 30 NANDINI INDEFLATOR at 10 nandini for 40 sec. 9:26:16 HR=74 bpm, RIRC=200/76 mmhg, SpO2=95.0 %, Resp=14 B/min 9:26:34 200 mcg NTG (IC) given in lab by Olvin Moreno in Right Radial via Intra-coronary. 9:27:27 Balloon Removed. 9:31:22 HR=72 bpm, OVVW=863/66 mmhg, SpO2=94.0 %, Resp=10 B/min A BALLOON, 2.0 X 12MM NC EUPHORA 12MM was inserted over WIRE, BALANCE MIDDLEWEIGHT 190CM 190CM v ia 9:36:06 the Radial (right). 9:36:12 HR=72 bpm, HNLG=228/74 mmhg, SpO2=95.0 %, Resp=12 B/min A BALLOON, 2.0 X 12MM NC EUPHORA 12MM over a WIRE, BALANCE MIDDLEWEIGHT 190CM 190CM in the DIAG Prox 9:37:17 was inflated using a 30 NANDINI INDEFLATOR at 12 nandini for 30 sec. 9:41:13 HR=76 bpm, PZNK=304/78 mmhg, SpO2=95.0 %, Resp=13 B/min 9:42:21 Activated Clotting Time Drawn 9:46:00 An CATHETER, [employer] SOBO[employer] IMAGING was advanced through the lesion. Images saved on to IVUS hard drive 9:46:17 HR=75 bpm, GCOV=948/73 mmhg, SpO2=95.0 %, Resp=10 B/min 9:47:19 IVUS in progress using CATHETER, [employer] IMAGING 9:49:01 ACT (Normal Range 90-180) = 286 9:49:20 IVUS stopped. 9:51:18 HR=80 bpm, XDIY=401/75 mmhg, SpO2=95.0 %, Resp=26 B/min 9:54:40 IVUS catheter removed 9:54:45 Both Wire removed 9:55:00 Catheter was removed 9:55:30 Case End 9:56:19 HR=78 bpm, YESA=407/76 mmhg, SpO2=98.0 %, Resp=14 B/min 10:01:18 HR=75 bpm, WZNI=655/78 mmhg, SpO2=98.0 %, Resp=23 B/min Radial Compression Device Used. 16 mLs of air placed in BAND, RADIAL COMPRESSION TR SHORT 24 2 4CM. Affected 10:01:36 hand 99 % O2 saturation. 10:02:22 Holding Area notified of unsuccessful intervention. 10:02:30 Bedside Report will be given. 10:02:36 A Left Heart Cath was performed. 10:07:38 Patient moved to stretcher End Study - Contrast Media Used In Study Contrast Total Opened (mL) Total Used (mL) Total Wasted (mL) Hypaque 76 130 130 0 End Study - Maximum Contrast Load Max Contrast Load (mL) 540.6 End Study - Radiation Exposure Fluoro Time (minutes) 25.0 End Study - Patient Disposition Complications Transferred To Interventional Outcome No Telemetry Bed unsuccessful
[2017-12-23] MEDS ORDERED: oxyCODONE/ACETAMINOPHEN 5 MG/325 MG TAB PO PRN (10:30)
[2017-12-23] MEDS ORDERED: oxyCODONE/ACETAMINOPHEN 10 MG/325 MG TAB PO PRN (10:30)
[2017-12-23] MEDS ORDERED: ACETAMINOPHEN 325 MG TAB PO PRN (10:30)
[2017-12-23] MEDS ORDERED: MISC INFORMATION XX ONE (10:30)
[2017-12-23] MEDS ORDERED: MORPHINE SULFATE 4 MG/ML INJ IV PUSH PRN (10:30)
--- NOTE | 2017-12-23 11:34 | MA ---
cc: Olvin Moreno DO DATE: 12/23/2017 PROCEDURE: Left heart catheterization, coronary angiogram, moderate sedation 90 minutes, IFR OM, balloon angioplasty diagonal, IVUS left main. PREPROCEDURE DIAGNOSIS: Nonsustained ventricular tachycardia on pacemaker interrogation. POSTPROCEDURE DIAGNOSIS: Multivessel coronary artery disease, left main disease. MEDICATIONS: Versed 0.5 mg, fentanyl 25 mcg, heparin 9000 units, nitro 200 mcg, verapamil 2.5 mg. CONTRAST USED: 130 mL FLUOROSCOPY: 25.0 minutes. MODERATE SEDATION: 90 minutes. FRAILTY SCORE: 4. ESTIMATED BLOOD LOSS: 20 mL PROCEDURAL SUMMARY: Veronica Starr is a pleasant 72-year-old female who sees my partner, Dr. Jones in the office and was noted to have episodes of nonsustained ventricular tachycardia on each one of her interrogations over the past few months. She previously had stress test and these were overall relatively negative but difficult to read and determine any ischemia. Because of this, he recommended she have cardiac catheterization. Risks, benefits and alternatives were explained to her and her daughter and she consented to such. She was brought to the lab and prepped in the usual sterile fashion. The right radial artery was accessed using modified Seldinger technique with placement of a 5/6 Chinese slender sheath. This was easily aspirated and flushed. A JR4 was advanced over a J-wire to the ascending aorta and across the aortic valve for measurement of left ventricular pressure. This was pulled back across the aortic valve showing no significant gradient of aortic stenosis. JR4 was used for selective angiography of the right coronary artery system. This is exchanged out for a JL3.5, which was used for selective angiography of the left coronary artery system. As there was believed to be significant disease in the obtuse marginal, as well as the diagonal I felt that should be further investigated. An EBU 3.5 guide was engaged into the left main. Heparin was given as an anticoagulant. Verrata wire was attempted to be wired into the proximal portion of the left circumflex, but I was unable to disengage the guide and so guide was exchanged out for an EBU 3.0 guide. Verrata wire was taken into the mid to distal obtuse marginal and IFR was measured at 1.0. The wire was removed. There was noted significant disease of the ostial diagonal, which may have been pinched when the original stent was placed. I felt, at this time, it was reasonable to consider ballooning this as I felt like this was possibly the cause of her nonsustained VT. She is on 50 mg b.i.d. of metoprolol and most likely an increase in this would not decrease her nonsustained VT. A BMW wire was advanced down the diagonal with ease. A Prowater was advanced down the LAD. Ostial diagonal was ballooned with a compliant balloon (2 x 6) and a noncompliant balloon (2 x 12). No real change in the significance of her stenosis. At this time, in viewing the films, there was concern for more significant left main disease. Throughout the case pressures had been dampened any time the guide was engaged into the left main, although this was felt that the left main was relatively short and the guide was engaging into the pilot point LAD. At this time, an IVUS catheter was taken into the proximal LAD and recordings were done on pullback throughout the left main with the guide disengaged from the coronary artery system. Review of the films shows that in the mid portion of a short LAD, there is an area of 5.7 mm2 consistent with significant left main disease. This catheter was removed. Both wires were removed. Final angiogram shows no disruption of the coronary anatomy. FINDINGS: Left main: Normal-sized vessel with 60% stenosis in the mid portion. Overall, short vessel. IVUS measures 5.7 mm2, signifying significant disease. It bifurcates into an LAD and circumflex. LAD: Normal-sized vessel. Ostially, there is a 50% stenosis. The mid portion has a stent, which is patent. Distal to this, there is 30% disease. It gives off 1 major diagonal, which comes off and was most likely pinched during stenting of the LAD. Disease is around 99%, but does have YANDEL 3 flow. Left circumflex: Is a moderate-sized vessel with 30% disease in the proximal portion. The first obtuse marginal has a 60% lesion in the mid portion. IFR 1.0 showing nonsignificant stenosis. RCA: Diffuse 30% disease. It gives off a PDA as well as PLB. LVEDP 6. IMPRESSION: 1. Nonsustained ventricular tachycardia on pacemaker interrogation concerning for ischemia. 2. Coronary artery disease as above with left main disease. RECOMMENDATIONS: 1. Ms. Starr appears to have significant disease with multivessel disease as well as left main disease. 2. Because of this she will be recommended consideration of cardiothoracic surgery. 3. As she did have balloon angioplasty of her diagonal, she will continue on aspirin therapy. 4. We will plan on not giving her Plavix in anticipation of CT surgery. 5. She will not be placed on LASHA inhibitor or ARB therapy due to the same reason that she will be getting ready for surgery. She will be planning for open heart surgery next week. 6. She will continue on beta magdalena and statin therapy. 7. If she does have any significant change in her symptoms, she will be brought back to the emergency room immediately. Thank you for allowing me to see Veronica Starr. If there are any questions, please do not hesitate to call. Olvin Moreno DO VGP/TL , 10:55 AM , 11:32 AM
--- NOTE | 2017-12-23 12:29 | PD.CAR.PN ---
CVT Progress Note Subjective/Hospital Course: pt seen and evaluated, full consult to follow sts data discussed with pt RISK SCORES About the STS Risk Calculator Procedure: CAB Only Risk of Mortality: 2.77% Morbidity or Mortality: 18.988% Long Length of Stay: 8.341% Short Length of Stay: 27.884% Permanent Stroke: 2.177% Prolonged Ventilation: 13.265% DSW Infection: 0.55% Renal Failure: 2.174% Reoperation: 6.344% Objective: Vital Signs Date Time Temp Pulse Resp B/P (MAP) Pulse Ox O2 Delivery O2 Flow Rate FiO2 12/23/17 10:13 98 Room Air 12/23/17 07:39 98.0 68 16 135/69 (91) 98 Labs: Laboratory Tests Test 12/23/17 07:00 White Blood Count 6.9 TH/MM3 (4.0-11.0) Red Blood Count 4.13 MIL/MM3 (4.00-5.30) Hemoglobin 11.9 GM/DL (11.6-15.3) Hematocrit 36.0 % (35.0-46.0) Mean Corpuscular Volume 87.2 FL (80.0-100.0) Mean Corpuscular Hemoglobin 28.7 PG (27.0-34.0) Mean Corpuscular Hemoglobin Concent 32.9 % (32.0-36.0) Red Cell Distribution Width 14.5 % (11.6-17.2) Platelet Count 221 TH/MM3 (150-450) Mean Platelet Volume 9.1 FL (7.0-11.0) Neutrophils (%) (Auto) 72.1 % (16.0-70.0) Lymphocytes (%) (Auto) 17.3 % (9.0-44.0) Monocytes (%) (Auto) 7.0 % (0.0-8.0) Eosinophils (%) (Auto) 3.5 % (0.0-4.0) Basophils (%) (Auto) 0.1 % (0.0-2.0) Neutrophils # (Auto) 4.9 TH/MM3 (1.8-7.7) Lymphocytes # (Auto) 1.2 TH/MM3 (1.0-4.8) Monocytes # (Auto) 0.5 TH/MM3 (0-0.9) Eosinophils # (Auto) 0.2 TH/MM3 (0-0.4) Basophils # (Auto) 0.0 TH/MM3 (0-0.2) CBC Comment DIFF FINAL Differential Comment Prothrombin Time 10.6 SEC (9.8-11.6) Prothromb Time International Ratio 1.0 RATIO Activated Partial Thromboplast Time 25.7 SEC (24.3-30.1) Blood Urea Nitrogen 27 MG/DL (7-18) Creatinine 0.80 MG/DL (0.50-1.00) Random Glucose 106 MG/DL (74-106) Calcium Level 8.6 MG/DL (8.5-10.1) Sodium Level 143 MEQ/L (136-145) Potassium Level 4.2 MEQ/L (3.5-5.1) Chloride Level 107 MEQ/L (98-107) Carbon Dioxide Level 28.5 MEQ/L (21.0-32.0) Anion Gap 8 MEQ/L (5-15) Estimat Glomerular Filtration Rate 70 ML/MIN (>89) Result Diagram: 12/23/17 0700 12/23/17 0700 Coreen Beal December 23, 2017 12:29
--- NOTE | 2017-12-23 13:11 | RADRPT ---
EXAM DATE: 12/23/2017 1:09 PM EDT AGE/SEX: 72 years / Female INDICATIONS: PRE-OP CABG. CLINICAL DATA: This is the patient's initial encounter. Patient reports that signs and symptoms have been present for 1 day and indicates a pain score of 0/10. MEDICAL/SURGICAL HISTORY: Cardiovascular disease. Hypertension. Pacemaker. Cholecystectomy. Appendectomy. COMPARISON: [facility] – [place], CHEST SINGLE AP, 08/28/2017. . FINDINGS: A single AP view of the chest demonstrates the lungs to be symmetrically aerated without evidence of mass, infiltrate or effusion. The cardiomediastinal contours are unremarkable. Osseous structures a re intact. Pacemaker overlying the left chest. CONCLUSION: No acute intrathoracic disease. No significant change. Electronically signed by: Renny Peter MD 12/23/2017 1:10 PM EDT
--- NOTE | 2017-12-23 14:05 | RADRPT ---
EXAM DATE: 12/23/2017 2:00 PM EDT AGE/SEX: 72 years / Female INDICATIONS: Pre Op Cardiac surgery. CLINICAL DATA: This is the patient's subsequent encounter. Patient reports that signs and symptoms h ave been present for 1 day and indicates a pain score of 0/10. MEDICAL/SURGICAL HISTORY: Hypercholesterolemia. Hypertension. Gastroesophageal reflux disease . Cerebrovascular accident. Coronary artery disease. Pacemaker. Appendectomy. Cholecystectomy. To laura knee replacement, right. Cardiac catheterization with stent. Ectopic surgery. COMPARISON: No prior [facility] exams available for comparison. [facility], US right leg v enous doppler, 2017-09-16 TECHNIQUE: Venous ultrasound of both lower extremities was performed from the inguinal ligament to t he proximal calf. Real-time, color Doppler and spectral tracing, compression and augmentation techni ques were used. FINDINGS: Right Leg: There is normal compressibility of the deep venous system from the inguinal region to the proximal calf. No echogenic clot is seen in the lumen of the common femoral, femoral, popliteal, an d posterior tibial veins. There is a normal response of the venous system to proximal and distal aug mentation and respiration. Left Leg: There is normal compressibility of the deep venous system from the inguinal region to the proximal calf. No echogenic clot is seen in the lumen of the common femoral, femoral, popliteal, and posterior tibial veins. There is a normal response of the venous system to proximal and distal augm entation and respiration. CONCLUSION: No DVT. Electronically signed by: Jamil Bay MD 12/23/2017 2:04 PM EDT
--- NOTE | 2017-12-23 14:07 | RADRPT ---
EXAM DATE: 12/23/2017 2:02 PM EDT AGE/SEX: 72 years / Female INDICATIONS: Pre Op Cardiac. CLINICAL DATA: This is the patient's initial encounter. Patient reports that signs and symptoms have been present for 1 day and indicates a pain score of 0/10. MEDICAL/SURGICAL HISTORY: Hypercholesterolemia. Hypertension. Gastroesophageal reflux disease . Cerebrovascular accident. Coronary artery disease. Pacemaker. Appendectomy. Cholecystectomy. To laura knee replacement, right. Cardiac catheterization with stent. Ectopic surgery. COMPARISON: No prior [facility] exams available for comparison. [facility], US right leg v enous doppler. 2017-09-16 MEASUREMENTS: RIGHT THIGH: Proximal:__6 mm Mid:__ 4 mm Distal:__4 mm LEFT THIGH: Proximal:__4 mm Mid:__2 mm Distal:__4 mm RIGHT CALF: Proximal:__3 mm Mid:__3 mm Distal:__3 mm LEFT CALF: Proximal:__2 mm Mid:__3 mm Distal:__2 mm FINDINGS: The venous system of the lower extremities are patent by color Doppler imaging. Measurements of the leg veins (in mm) are listed above. CONCLUSION: Venous mapping as delineated above. Electronically signed by: Jamil Bay MD 12/23/2017 2:06 PM EDT
--- NOTE | 2017-12-23 14:22 | RADRPT ---
EXAM DATE: 12/23/2017 2:07 PM EDT AGE/SEX: 72 years / Female INDICATIONS: Pre Op Cardiac. CLINICAL DATA: This is the patient's initial encounter. Patient reports that signs and symptoms have been present for 1 day and indicates a pain score of 0/10. MEDICAL/SURGICAL HISTORY: Hypercholesterolemia. Hypertension. Gastroesophageal reflux disease . Cerebrovascular accident. Coronary artery disease. Pacemaker. Appendectomy. Cholecystectomy. To laura knee replacement, right. Cardiac catheterization with stent. Ectopic surgery. COMPARISON: No prior [facility] exams available for comparison. No external comparison. VELOCITY PARAMETERS: ICA/CCA Ratio: Right 1.5 , Left 1.2 ICA: Right 110 cm/sec, Left 76 cm/sec CCA: Right 74 cm/sec, Left 65 cm/sec ECA: Right 54 cm/sec, Left 136 cm/sec Vertebral: Right 75 cm/sec antegrade, Left 63 cm/sec anterograde FINDINGS: Right Carotid: There is plaque with shadowing seen at the carotid bulb region. No significant stenos is is visualized. The waveforms are within normal limits. Left Carotid: There is plaque with shadowing seen at the carotid bulb region. No significant stenosi s is visualized. The waveforms are within normal limits. Other: None. CONCLUSION: Plaques in the carotid bulb regions bilaterally. A significant stenosis is not clearly identified bas ed on the velocity criteria. There is some shadowing limiting the grayscale interpretation of this re gion. Electronically signed by: Jamil Bay MD 12/23/2017 2:20 PM EDT
--- NOTE | 2017-12-23 14:32 | EKG ---
Date Performed: 12/23/2017 Time Performed: 07:17:26 PTAGE: 72 years EKG: Baseline artifact present Unclear underlying rhythm, probably Sinus rhythm with premature atrial and ventricular contractions. Extensive ST-T changes are nonspecific Abnormal ECG I cannot accurately compare EKGs because of artifact. DOCTOR: Vicente Parks Interpretating Date/Time 12/23/2017 14:30:53
--- NOTE | 2017-12-23 14:50 | MB ---
cc: Shereen Salgado MD DATE: 12/23/2017 HISTORY OF PRESENT ILLNESS: A patient of Dr. Gianni Jones, Dr. Chuckie Peoples, with history of coronary artery disease, also nonsustained V-tach. She has a history also of syncopal episodes where she actually passed out on an airplane 2 years ago. She has had some increased fatigue and shortness of breath and underwent cardiac catheterization today for further evaluation. Her cath showed an ejection fraction of 50%, left main disease of 60%, proximal LAD 50%, mid distal LAD 50%, diagonal was 99%. The OM 50%. We were consulted to evaluate for coronary artery bypass graft to the LAD, OM and diagonal. PAST MEDICAL HISTORY: Coronary artery disease with prior stent to the mid LAD in 2006, COPD, hyperlipidemia, hypertension, lower extremity edema, obesity, obstructive sleep apnea. She is unwilling to wear CPAP. She has a pacer in situ indeni. She had long pauses on a loop recorder. She has also been recently found to have some nonsustained VT, palpitations, syncope. She had a TIA back in August. MRI of the brain in August was age related, no acute abnormality. MRA within normal limits. Head CT was unremarkable. The patient was felt at that time to have a TIA and was discharged with aspirin. She also has some stress urinary incontinence. She has had a right lower leg vein stripping. PAST SURGICAL HISTORY: Colonoscopy, loop recorder implantation, stent. ALLERGIES: THE PATIENT HAS ALLERGIES TO LISINOPRIL. HOME MEDICATIONS: Include nitro p.r.n., lovastatin 40, metoprolol 50 b.i.d., vitamin B12 injections, albuterol nebulizer, Celexa 20 mg, vitamin B, multivitamin, aspirin 81 daily, Advair Diskus inhaler, Stiolto Respimat 2 puffs daily, omeprazole, hydrochlorothiazide 25 daily. FAMILY HISTORY: Mother in her 80s from old age and dementia. Father in WWII. SOCIAL HISTORY: The patient smoked for 27 years, 2 packs per day, quit 30 years ago. No alcohol. 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 She is with 2 children. Her is currently admitted. She does also live with her daughter. REVIEW OF SYSTEMS: GENERAL: No night sweats, fever, heat and cold intolerance. SKIN: No psoriasis, itching or hives. HEENT: No blurred vision, hearing loss. She does wear upper dentures. RESPIRATORY: Positive for chronic shortness of breath, occasional wheeze, nonproductive cough. CARDIOVASCULAR: No chest pain. No paroxysmal nocturnal dyspnea, no orthopnea. She has occasional right lower extremity edema. GASTROINTESTINAL: No diarrhea or vomiting. GENITOURINARY: She has stress incontinence. AIR TWISTER WINDER: Positive for prior TIA. ENDOCRINOLOGY: No diabetes or hypothyroidism. PHYSICAL EXAMINATION: VITAL SIGNS: Blood pressure 130/70, heart rate is 68, temperature T-max 98, room air sat 98%. GENERAL: Awake, alert, in no acute distress. HEENT: Head is normocephalic, atraumatic. Pupils equal and reactive. Oral mucosa pink, moist. NECK: Supple. No JVD. HEART: Sounds S1, S2. Regular rate and rhythm. No audible rubs, murmurs, gallops. LUNGS: Diminished in the bases. A faint expiratory wheeze. ABDOMEN: Obese, soft, nontender. No masses or organomegaly. EXTREMITIES: Reveal varicosities, left lower leg, trace edema. LABORATORY DATA: Shows hemoglobin of 11.9, hematocrit of 36, white cell count of 6.9, platelet count of 221. Sodium 143, potassium 4.2, BUN 27, creatinine 0.80, glucose 106. INR 1.0. Further studies including pending the pulmonary function testing, carotid ultrasound, leg vein mapping. At this time, the cardiac films will be reviewed by Dr. Shereen Salgado. Procedures, alternatives and risks discussed with the patient. STS data documented in electronic record. The plan will be for coronary artery bypass grafting x3 on 12/29/2017. Dictated by: WENDY Orta MD SANDRA Scales/MOIRA , 12:24 PM , 01:00 PM
[2017-12-23 14:51] LABS: ALBUMIN 3.3 GM/DL (3.4-5.0); ALT (GPT) 22 U/L (10-53); AST (GOT) 25 U/L (15-37); DIRECT BILIRUBIN ADULT 0.1 MG/DL (0.0-0.2)
[2017-12-23 14:52] LABS: ALKALINE PHOSPHATASE 107 U/L (45-117); INDIRECT BILIRUBIN 0.2 MG/DL (0.0-0.8); TOTAL BILIRUBIN ADULT 0.3 MG/DL (0.2-1.0); TOTAL PROTEIN 6.5 GM/DL (6.4-8.2)
[2017-12-23 16:40] LABS: BILIRUBIN, URINE NEG (NEG); BLOOD, URINE NEG (NEG); GLUCOSE,URINE NEG (NEG); KETONE, URINE NEG (NEG); NITRITE,URINE NEG (NEG); PH, URINE 5.5 (5.0-8.5); SQUAMOUS EPITHELIAL CELL URINE <1 /hpf (0-5); URINE COLOR YELLOW (YELLW/STRAW); URINE LEUKOCYTE ESTERASE NEG (NEG)
[2017-12-23 17:13] LABS: HEMOGLOBIN A1C 5.2 % (4.3-6.0)
--- NOTE | 2017-12-25 09:31 | RSPPFT ---
DATE OF PROCEDURE: 12/23/17 COMMENTS: Spirometry shows FVC of 2.1 at 78% of predicted, FEV1 of 1.9 at 94%, FEV1/FVC ratio is normal. Flow is normal at FEF 25, FEF 50, FEF 75 and FEF 25-75. Post-bronchodilator study was not done. IMPRESSION: 1. Normal spirometry. 2. Post-bronchodilator study was not done.
== END 2017-12-23 16:32 | disposition home or self-care (01) ==
LOC: HDIC 06:31 → HDOC 06:31
PROVIDERS: ATTEND Nuclear Medicine Nuclear Cardiology
DX: I25.10 Atherosclerotic heart disease of native coronary artery without angina pectoris (principal); I47.2 Ventricular tachycardia; E78.00 Pure hypercholesterolemia, unspecified; I10 Essential (primary) hypertension; K21.9 Gastro-esophageal reflux disease without esophagitis; Z86.73 Personal history of transient ischemic attack (TIA), and cerebral infarction without residual deficits; Z95.0 Presence of cardiac pacemaker; Z95.1 Presence of aortocoronary bypass graft; Z01.818 Encounter for other preprocedural examination; I65.23 Occlusion and stenosis of bilateral carotid arteries; R94.31 Abnormal electrocardiogram [ECG] [EKG]; Z79.899 Other long term (current) drug therapy; Z01.811 Encounter for preprocedural respiratory examination
CPT/HCPCS: 71045; 80048; 80076; 81001; 83036; 85002; 85025; 85610; 85730; 86850; 86900; 86901; 87641; 92920; 92978; 93005; 93458; 93571; 93880; 93970; 93998; 94010; 99152; 99153; C1725; C1753; C1769; C1887; C1893; J1644; J2250; J3010; Q9967

== ENCOUNTER 2017-12-29 05:24 | Inpatient (IN) | payer MEDICARE, OTHER ==
[~2017-12-29] VITALS: Ht 162.6 cm; Wt 87.5 kg
[2017-12-29] VITALS (12 sets, daily range): BP systolic 93–133; BP diastolic 45–94; PULSE 69–102; RESP 11–20; TEMP 96.1–98.8; O2SAT 97–100
[~2017-12-29 05:24] MED LIST changes: -AMLO5TAB2 PO; -CEFD300C PO; +HYDR25TA5 PO; -IPRASOL INH; -NYST1000 SWISH-SWAL; +OMEP20TA93 PO; -PRED10 PO; -PRED20 PO; -UMEC1INH INH
[2017-12-29] MEDS ORDERED: METOPROLOL TARTRATE 25 MG TAB PO PRN (06:00)
[2017-12-29] MEDS ORDERED: LACTATED RINGER'S 1000 ML IV PRN (06:00)
[2017-12-29] MEDS ORDERED: METOPROLOL TARTRATE 25 MG TAB PO SCH (06:00)
[2017-12-29] MEDS ORDERED: POVIDONE IODINE 5% (ANTISEPSIS KIT) 4 APPLICATIONS EACH NARE PRN (06:00)
[2017-12-29] MEDS ORDERED: CHLORHEXIDINE GLUCONATE 2 % 1 PACK (2 CLOTHS) TOPICAL PRN (06:00)
[2017-12-29] MEDS ORDERED: CHLORHEXIDINE GLUCONATE 4% SOLN 120 ML BTL TOPICAL SCH (06:00)
[2017-12-29] MEDS ORDERED: DEXTROSE 50% IN WATER 50 ML VIAL(D50) IV PUSH PRN ×2 (06:00→12:00)
[2017-12-29] MEDS ORDERED: INSULIN REGULAR 100 UNITS in NS 100 ML IV PRN (06:00)
[2017-12-29] MEDS ORDERED: CEFAZOLIN 500 MG in NS IRR BTL 500 ML IRRIGATION SCH (06:00)
[2017-12-29] MEDS ORDERED: SODIUM CHLORIDE 0.9% FLUSH 10 ML FLUSH IV FLUSH PRN ×3 (06:00→12:00)
[2017-12-29] MEDS ORDERED: PAPAVERINE 60 MG-NITROGLYCERIN 100 MCG-DILTIAZEM 100 MG in NS 100 ML IRRIGATION SCH ×4 (06:00)
[2017-12-29] MEDS ORDERED: SODIUM CHLORID 0.9% 500 ML IV PRN (06:00)
[2017-12-29] MEDS ORDERED: methylPREDNISolone SOD SUCC 125 MG/2 ML VIAL ONE (06:31)
[2017-12-29] MEDS ORDERED: ceFAZolin 2 GM PREMIX 0 ML ONE (06:31)
[2017-12-29] MEDS ORDERED: VANCOMYCIN HCL 1000 MG VIAL ONE (06:31)
[2017-12-29] MEDS ORDERED: HEPARIN SODIUM - SQ 10,000 UNITS/ML VIAL ONE (06:31)
[2017-12-29] MEDS ORDERED: fentaNYL CITRATE 1000 MCG/20 ML VIAL ONE (06:48)
[2017-12-29] MEDS ORDERED: ACETAMINOPHEN 1000 MG/100 ML 100 ML IV ONE (06:48)
[2017-12-29] MEDS ORDERED: MIDAZOLAM HCL 5 MG/5 ML VIAL ONE (06:48)
[2017-12-29] MEDS ORDERED: SUGAMMADEX SODIUM 200 MG/2 ML VIAL IV PUSH ONE (06:49)
[2017-12-29] MEDS: ceFAZolin 2 GM PREMIX 50 ML IV SCH ×3 (07:00→08:40)
[2017-12-29] MEDS ORDERED: HEPARIN SODIUM - IV 10,000 UNITS/10 ML VIAL ONE (07:31)
[2017-12-29] MEDS ORDERED: ALBUMIN 25% INJ 50 ML IV ONE (07:31)
[2017-12-29] MEDS ORDERED: CARDIOPLEGIC IRR 2,000 ML ONE (07:31)
[2017-12-29] MEDS ORDERED: MANNITOL INJ 100 ML ONE (07:32)
[2017-12-29] MEDS ORDERED: POTASSIUM CHLOR 40 MEQ PREMIX 100 ML ONE (07:32)
[2017-12-29] MEDS ORDERED: CALCIUM CHLORIDE 10% SOLN 1 GRAM/10 ML SYR ONE (07:32)
[2017-12-29] MEDS ORDERED: SODIUM BICARBONATE 8.4% INJ 50 ML ONE (07:33)
[2017-12-29] MEDS ORDERED: NITROGLYCERIN-D5W 50 MG/250 ML 250 ML ONE (09:14)
[2017-12-29] MEDS ORDERED: fentaNYL CITRATE 250 MCG/5 ML AMP ONE (09:35)
[2017-12-29] MEDS ORDERED: LACTATED RINGER'S 1000 ML INJ 500 ML IV PRN (11:57)
[2017-12-29] MEDS ORDERED: ceFAZolin INJ 1,000 MG VIAL ONE (11:59)
[2017-12-29] MEDS ORDERED: SODIUM CHLORID 0.9% 500 ML INJ 500 ML IV ONE (12:00)
[2017-12-29] MEDS ORDERED: MAGNESIUM SULFATE 1 GM/2 ML VIAL IV ONE (12:00)
[2017-12-29] MEDS ORDERED: METOPROLOL TARTRATE 5 MG/5 ML VIAL IV PUSH PRN (12:00)
[2017-12-29] MEDS ORDERED: HEPARIN SODIUM - SQ 10,000 UNITS/ML VIAL SQ ONE (12:00)
[2017-12-29] MEDS ORDERED: SODIUM CHLOR 0.9% 250 ML INJ 750 ML IV ONE (12:00)
[2017-12-29] MEDS ORDERED: RESP: ALBUTEROL 2.5 MG/IPRATROPIUM 0.5 MG NEB (PRN) NEB (12:00)
[2017-12-29] MEDS ORDERED: PHENYLEPH/NS 1000 MCG/10 ML SYR IV ONE (12:00)
[2017-12-29] MEDS ORDERED: ALBUMIN 5% INJ 250 ML IV PRN (12:00)
[2017-12-29] MEDS ORDERED: GLYCOPYRROLATE 1 MG/5 ML SYRINGE IV PUSH ONE (12:00)
[2017-12-29] MEDS ORDERED: CALCIUM CHLORIDE 10% 1 GRAM/10 ML VIAL IV PUSH PRN (12:00)
[2017-12-29] MEDS ORDERED: DEXMEDETOMIDINE HCL 200 MCG/2 ML VIAL IV ONE (12:00)
[2017-12-29] MEDS ORDERED: Post-op Orders (for Pharmacy) OTHER ONE (12:00)
[2017-12-29] MEDS ORDERED: PHENYLEPHRINE HCL 10 MG/ML VIAL IV ONE (12:00)
[2017-12-29] MEDS ORDERED: RESP: RACEPINEPHRINE 2.25% 0.5 ML NEB NEB PRN (12:00)
[2017-12-29] MEDS ORDERED: PROTAMINE SULFATE 250 MG/25 ML VIAL IV ONE (12:00)
[2017-12-29] MEDS ORDERED: POTASSIUM CHLORIDE 20 MEQ CONTROLLED RELEASE TAB PO PRN ×2 (12:00)
[2017-12-29] MEDS ORDERED: MAGNESIUM SULFATE INJ 2 GM in SODIUM CHLORIDE 0.9% INJ 100 ML IV PRN ×4 (12:00)
[2017-12-29] MEDS ORDERED: KETOROLAC TROMETHAMINE 30 MG/ML (IVP) VIAL IV PUSH PRN (12:00)
[2017-12-29] MEDS ORDERED: POTASSIUM CHLOR 20 MEQ PREMIX 100 ML IV PRN ×3 (12:00)
[2017-12-29] MEDS ORDERED: SODIUM CHLORIDE 0.9% INJ 200 ML IV ONE (12:00)
[2017-12-29] MEDS ORDERED: ACETAMINOPHEN 650 MG SUPP RECTAL PRN (12:00)
[2017-12-29] MEDS ORDERED: ePHEDrine/NS 25 MG/5 ML SYRINGE IV ONE (12:00)
[2017-12-29] MEDS ORDERED: ACETAMINOPHEN 325 MG TAB PO PRN (12:00)
[2017-12-29] MEDS ORDERED: hydrALAZINE HCL 20 MG/ML VIAL IV PUSH PRN (12:00)
[2017-12-29] MEDS ORDERED: DEXMEDETOMIDINE INJ 200 MCG in SODIUM CHLORIDE 0.9% INJ 50 ML IV PRN (12:00)
[2017-12-29] MEDS ORDERED: NORMOSOL R INJ 2,000 ML IV ONE (12:00)
[2017-12-29] MEDS: ACETAMINOPHEN 1000 MG/100 ML 100 ML IV SCH ×3 (12:00→23:44)
[2017-12-29] MEDS ORDERED: CLEVIDIPINE INJ 50 ML IV PRN (12:00)
[2017-12-29] MEDS ORDERED: TRANEXAMIC ACID INJ 1,000 MG/10 ML AMP IV ONE (12:00)
[2017-12-29] MEDS ORDERED: VECURONIUM BROMIDE 10 MG VIAL IV ONE (12:00)
[2017-12-29] MEDS ORDERED: LACTATED RINGER'S 1000 ML INJ 2,000 ML IV ONE (12:00)
[2017-12-29] MEDS ORDERED: SODIUM BICARBONATE 8.4% SOLN 50 MEQ/50 ML VIAL IV PUSH PRN ×2 (12:00)
[2017-12-29] MEDS ORDERED: CALCIUM CHLORIDE INJ 1 GM in SODIUM CHLORIDE 0.9% INJ 100 ML IV PRN (12:00)
[2017-12-29] MEDS ORDERED: ONDANSETRON ODT 4 MG TAB SL PRN (12:00)
--- NOTE | 2017-12-29 12:11 | PD.OP ---
cc: Shereen Salgado MD; Olvin Moreno DO Operative Report Date of Surgery: December 29, 2017 Preoperative Diagnosis: (1) Angina pectoris (2) Coronary artery disease Postoperative Diagnosis: same Procedure: CABG x 3 HUTCHINSON to LAD- good SVG to OM - poor SVG to D1 - good EVH (R) - vein was fair with varicosities. Anesthesia: Dr. Stein Surgeon: Shereen Salgado Associate Professor Of Surgery(s): FELIZ Henriquez Operation and Findings: The risks, benefits, complications, treatment options, and expected outcomes were discussed with the patient. The possibilities of reaction to medication, pulmonary aspiration, perforation of viscus, bleeding, recurrent infection, the need for additional procedures, failure to diagnose a condition, and creating a complication requiring transfusion or operation were discussed with the patient. The patient concurred with the proposed plan, giving informed consent. The site of surgery properly noted/marked. The patient was taken to Operating Room, identified as Veronica Starr and the procedure verified as CABG, EVH. A Time Out was held and the above information confirmed. Standard monitoring lines and Gilbert catheter were placed. General anesthesia was induced. The patient was prepped and draped in a sterile fashion. A median sternotomy was performed and electrocautery was used to obtain hemostasis. The left internal mammary artery was procured as a pedicle from the 7th rib to the 1st rib in the usual manner. Simultaneously right greater saphenous vein was procured from the right leg using a minimally invasive endoscopic technique. The vein was prepared for anastomosis and the leg wound was irrigated and closed in 2 layers. The vein was fair quality with varicosities which were ecxluded. The pericardium was opened and a pericardial sling was created using interrupted 0 silk sutures. The patient was heparinized for cardiopulmonary bypass and the distal mammary pedicle was instrumented for anastomosis. The heart was instrumented for cardiopulmonary bypass in the usual manner. Antegrade blood cardioplegia was employed. The patient was placed on cardiopulmonary bypass. An aortic cross-clamp was applied and the heart was arrested using cold blood cardioplegia. Antegrade cardioplegia was administered after he each anastomosis. After adequate arrest, the distal right coronary circulation was investigated and the OM was opened with a [place] blade and found to be a 1 millimeter fair target. Saphenous vein was approximated to the OM artery using a running 7 0 Prolene suture. The graft was measured for length and orientation and the proximal anastomosis was constructed to the ascending aorta using a running 5 0 Prolene suture after creating an aortotomy with a 5 millimeter punch. The 1st diagonal artery was then opened with a [place] blade and found to be a 1.5 millimeter good target. Saphenous vein was approximated to the D1 artery using a running 7 0 Prolene suture. The graft was measured for length and orientation and was suspended from the pericardium. The distal LAD was opened with a [place] blade and found to be a 1.5 millimeter good target. The left internal mammary artery was approximated to the LAD using a running 7 0 Prolene suture. The pedicle was attached to the epicardium using interrupted 5 0 silk suture. The patient was systemically rewarmed and received a hotshot dose of warm blood cardioplegia. The aorta was vented and the proximal anastomosis to the D1 graft was accomplished using a running 5 0 Prolene suture after creating an aortotomy was a 5 millimeter punch. The cross-clamp was removed and all proximal and distal anastomoses were examined for hemostasis. The patient was weaned from cardiopulmonary bypass. Protamine was given. There was no adverse reaction. Decannulation was carried out without incident. Wound was checked for hemostasis which was obtained using electrocautery. A 36 [place] mediastinal and 32 [place] left pleural chest tubes were placed and secured to the skin with 0 silk suture. The sternum was closed with stainless steel wire. The fascia was closed with 1. PDS. The subcutaneous tissue was closed using a running 2-0 Vicryl suture. The skin was closed with 4-0 Monocryl. Sterile dressings were placed. At the end of the operation, all sponge, instruments, and needle counts were correct. The patient was transferred to the CVICU in stable condition. Findings: Diffuse CAD with the OM distal target being small and fair in quality. The vein conduit was also fair quality as the patient had severe Varicose veins bilaterally. XC: 58 min CPB: 67 min Drains: mediastinal x 1 pleural x 1 Complications: none Disposition: to CVICU in stable condition Shereen Salgado MD December 29, 2017 12:11
[2017-12-29] MEDS ORDERED: INSULIN REGULAR (IV INFUSION) 100 UNITS in SODIUM CHLORIDE 0.9% INJ 99 ML IV PRN (13:00)
--- NOTE | 2017-12-29 13:34 | RADRPT ---
EXAM DATE: 12/29/2017 1:29 PM EDT AGE/SEX: 72 years / Female INDICATIONS: Post op CABG. CLINICAL DATA: This is the patient's initial encounter. Patient reports that signs and symptoms have been present for 1 day and indicates a pain score of Nonresponsive. MEDICAL/SURGICAL HISTORY: Hypercholesterolemia. Hypertension. Chronic obstructive pulmonary d isease. TIA. CAD. Asthma. GERD. Arthritis. Pacemaker. Gastric bypass. Total knee replacement, ri ght. Cardiac cath w/ stent. Appendectomy. Cholecystectomy. COMPARISON: [facility] – [place], 12/23/2017. . FINDINGS: A single AP view of the chest demonstrates the recent CABG. Left-sided pacemaker unchanged. Endotrach eal tube 5.5 cm above the cheryl. Nasogastric tube tip in stomach. Right jugular central line with ti p in the SVC. Left-sided chest tube. Mediastinal chest tube. No pneumothorax. Lungs are relatively cl ear. The cardiomediastinal contours are unremarkable. Osseous structures are intact. CONCLUSION: Support lines and tubes as described above. Status post CABG. Electronically signed by: Mariusz Onofre MD 12/29/2017 1:33 PM EDT
[2017-12-29] MEDS ORDERED: CYANOCOBALAMIN 1000 MCG/ML VIAL IM SCH (14:00)
--- NOTE | 2017-12-29 14:10 | PD.CAR.PN ---
CVT Progress Note Subjective/Hospital Course: A patient of Dr. Gianni Jones, Dr. Chuckie Peoples, with history of coronary artery disease, also nonsustained V-tach. C/O some increased fatigue and shortness of breath and underwent cardiac catheterization today for further evaluation. Her cath showed an ejection fraction of 50%, left main disease of 60%, proximal LAD 50%, mid distal LAD 50%, diagonal was 99%. The OM 50%. Pt initially seen 12/23 to evaluate for coronary artery bypass graft to the LAD, OM and diagonal. PAST MEDICAL HISTORY: Coronary artery disease with prior stent to the mid LAD in 2006, COPD, hyperlipidemia, hypertension, lower extremity edema, obesity, obstructive sleep apnea. She is unwilling to wear CPAP. She has a pacer in situ [employer]. recently found to have some nonsustained VT, TIA back in August. MRI of the brain in August was age related, no acute abnormality. 12/29 pt electively admitted for surgery CABG x 3, HUTCHINSON to LAD- good, SVG to OM - poor, SVG to D1 - good, EVH (R) - vein was fair with varicosities Objective: Vital Signs Date Time Temp Pulse Resp B/P (MAP) Pulse Ox O2 Delivery O2 Flow Rate FiO2 12/29/17 13:22 90 12/29/17 13:18 60 12/29/17 12:40 96.1 84 14 117/94 (102) 99 133/64 (87) 12/29/17 12:38 98.6 12/29/17 12:37 100 65 12/29/17 06:30 98.6 63 20 108/68 (81) 98 (1) Hyperlipemia (2) S/P CABG x 3 (3) COPD (chronic obstructive pulmonary disease) (4) Hypertension (5) Coronary artery disease Coreen Beal December 29, 2017 14:10
--- NOTE | 2017-12-29 14:14 | HHI.FF ---
Face to Face Verification Diagnosis: (1) COPD (chronic obstructive pulmonary disease) (2) HLD (hyperlipidemia) (3) Depression (4) S/P CABG x 3 (5) TIA (transient ischemic attack) Home Health Nursing Order: Signs/symptoms of disease process Medication education-adverse effect Wound care and dressing changes Nursing assessment with vital signs Instructions: Heart and Vascular Surgery patients *Special attention to sternal dressing Mandatory frequency Assess and evaluation, 4 days in a row The next week 3X week 2 times a week for 4 weeks 1 time a week for 5 weeks Schedule Heart and Vascular patients for full 60 day certification period Initial visit Review Open Heart Surgery Discharge Instructions (Sternal precautions, Activity, Elastic hose, Incision care, Driving, Incentive spirometry, Smoking, [place], Work and other) Need Betadine to paint incision Medication reconciliation Importance of follow up care/ check on appointments Make calendar record temperature daily When to call [facility] [place] nurse, review instructions, phone list Incentive Spirometry, demonstration Visit 1- Begin discharge instruction for patient family and/ or caregiver using teach back method- Signs and symptoms of infection Disease characteristics Medicines and side effects Foods and nutrition/ appetite Infection control/ hand washing/ hygiene Visit 2- Continue teaching Discharge instructions- include additional information on smoking cessation , sternal dressing (sternal vac) Visit 3- Continue teaching- Cough and deep breathing, incision monitoring. Choose my plate Visit 4- Continue teaching- Discuss limitations Discuss how they are feeling Discuss progress toward goals Remaining visits- continue teaching and monitoring For any questions please call : Thursday 8am-5pm Heart & Vascular Surgery Office ( Dr. Burnette & Dr. Salgado), After Hours / Nights (5pm -8am) Weekends and Holidays Please call [facility] Cardiac Intermediate Care Unit (CIC) Charge Nurse PREVENA Single Use Negative Wound Therapy System Caregiver Instruction Sheet 1. A Prevena dressing system was applied to the chest incision during surgery , to promote wound healing. It works via a suction device (negative pressure wound therapy) to remove low to moderate levels of exudate (drainage) and infectious materials. We recommend that the device stay in place for up to seven days, from day of surgery. 2. Day of Surgery___12/29/17 Day of Removal 3. The dressing should only be removed by a health furnace caretaker. Please arrange removal of device to coincide with Home Health visit and or with Nursing staff at Rehab 4. If skin reddening or irritation of skin occurs, or excessive drainage, please notify the Cardiovascular Surgeons office at [phone]. 5. Light showering is permissible; however the pump should be disconnected and placed in safe location, where it will not get wet. The dressing should not be exposed to direct spray or submerged in water. No bath tub / shower only. Ensure the end of the tubing attached to the dressing is facing down so that water does not enter the top of the tube. 6. To remove Prevena dressing: press purple button to turn off device / remove the suction. Then disconnect the tubing from the pump. The fixation strips should be stretched away from the skin and the dressing lifted at one corner and peeled back until it has been fully removed. 7. After removal, it is ok to shower daily using liquid dial soap and clean wash cloth, rinse and pat dry, and leave incision open to air dry. For any concerns regarding Prevena dressing, and or wounds, please contact Reanna Anaya, patient navigator at [phone] or notify the Cardiovascular Surgeons office at [phone]. Incentive spirometry Q1 hr x 10, while awake, also use acapella device hourly whole awake Sternal Breast Bone Precautions: NO pushing or pulling, ( pt must use sternal pillow to support chest with all activities and with coughing ( takes up to 3 months breast bone to heal ) All females to wear sternal bra , launder as needed Daily incision care: ok to shower daily, no tub bath. Wash all incisions with liquid dial soap, clean wash cloth to each site, rinse and pat dry. Observe for any signs of infection, such as drainage which is dark yellow, bob, green or foul smelling. Immediately report to the surgeon any drainage from the chest incision, or legs, and for any abnormal drainage from the chest tube sites. Notify surgeon if any temp >101.5 degrees F. When specialty dressing removed/ or if you do not have one, continue to shower daily as above, then rinse and pat incision dry and paint with betadine daily x 5 days. Allow steri strips to fall off if you have any. Avoid lotions, creams, salves, oils, etc. for the first month Please see attached forms for additional instructions regarding post Open Heart specialty wound vacuum dressings. SUE or Prevena , Dressing to be removed by Nursing staff on __01/05/[address] Salgado patients , please obtain CBC, BMP, PA & Lat CXR in 2 weeks, results to Dr. Salgado ( prescription will be given) ( ) (Tele: [phone]) , F/U appointment: as per DC instructions: PCP in 2 weeks, CV surgeon 2 weeks, Microbiology Analyst 3-4 weeks For any questions regarding incisions/ dressing / meds / post op care or above Symptoms, Thursday 8am-5pm Heart & Vascular Surgery Office ( Dr. Burnette & Dr. Salgado), After Hours / Nights (5pm -8am) Weekends and Holidays Please call [facility] Cardiac Intermediate [facility] Unit (CIC) Charge Nurse I have seen patient Veronica Starr on 12/29/17. My clinical findings support the need for the requested home health care services because: Deconditioned w/ increased weakness I certify that my clinical findings support that this patient is homebound because: Post-op weakness Coreen Beal December 29, 2017 14:14
[2017-12-29 15:43] LABS: BICARBONATE 25.8 MEQ/L (21.0-32.0); CALCIUM 8.4 MG/DL (8.5-10.1); CREATININE 0.71 MG/DL (0.50-1.00); MAGNESIUM 2.7 MG/DL (1.5-2.5)
[2017-12-29] MEDS: RESP: ALBUTEROL 2.5 MG/IPRATROPIUM 0.5 MG NEB (SCH) NEB ×2 (17:05→21:17)
[2017-12-29] MEDS: SODIUM CHLORIDE 0.9% FLUSH 10 ML FLUSH IV FLUSH SCH (21:00)
[2017-12-29] MEDS ORDERED: AMIODARONE 200 MG TAB PO SCH (21:00)
[2017-12-29] MEDS: BUDESONIDE-FORMOTEROL 160/4.5 MCG INHALER INH SCH (21:00)
[2017-12-30] VITALS (19 sets, daily range): BP systolic 109–142; BP diastolic 46–66; PULSE 61–106; RESP 16–22; TEMP 97.4–98.6; O2SAT 92–100
[2017-12-30] MEDS: RESP: ALBUTEROL 2.5 MG/IPRATROPIUM 0.5 MG NEB (SCH) NEB ×3 (03:20→19:30)
--- NOTE | 2017-12-30 04:12 | RADRPT ---
EXAM DATE: 12/30/2017 4:08 AM EDT AGE/SEX: 72 years / Female INDICATIONS: Short of breath. CLINICAL DATA: This is the patient's subsequent encounter. Patient reports that signs and symptoms h ave been present for 3 days and indicates a pain score of 0/10. MEDICAL/SURGICAL HISTORY: . Hypercholesterolemia. Hypertension. Chronic obstructive pulmonary d isease. TIA. CAD. Asthma. GERD. Arthritis . Pacemaker. Gastric bypass. Total knee replacement, right . Cardiac cath w/ stent. Appendectomy. Cholecystectomy. CABG. COMPARISON: [facility] [place], CHEST SINGLE AP, 12/29/2017. . FINDINGS: ET tube and NG tube have been removed. Left chest tube is in place. There is no pneumotho rax. Right IJ line and pacer wires have not changed. Lungs are clear. Heart and mediastinum are stabl e. CONCLUSION: Removal of the ET tube and NG tube, otherwise not significantly changed. Electronically signed by: Tatiana Somers MD 12/30/2017 4:11 AM EDT
[2017-12-30 05:31] LABS: HEMATOCRIT 32.6 % (35.0-46.0); HEMOGLOBIN 10.7 GM/DL (11.6-15.3); MEAN CELL VOLUME 87.5 FL (80.0-100.0); MEAN CORPUSCULAR HEMOGLOBIN 28.7 PG (27.0-34.0); MEAN CORPUSCULAR HGB CONC 32.8 % (32.0-36.0); MEAN PLATELET VOLUME 9.5 FL (7.0-11.0); PLATELET COUNT 170 TH/MM3 (150-450); RED BLOOD COUNT 3.72 MIL/MM3 (4.00-5.30); RED CELL DISTRIBUTION WIDTH 14.4 % (11.6-17.2); WHITE BLOOD COUNT 15.2 TH/MM3 (4.0-11.0)
[2017-12-30 06:01] LABS: CALCIUM 8.9 MG/DL (8.5-10.1); CREATININE 0.74 MG/DL (0.50-1.00); MAGNESIUM 2.4 MG/DL (1.5-2.5)
[2017-12-30] MEDS: ACETAMINOPHEN 1000 MG/100 ML 100 ML IV SCH (06:09)
[2017-12-30] MEDS ORDERED: BISACODYL 10 MG SUPP RECTAL PRN (08:45)
[2017-12-30] MEDS ORDERED: SOD PHOSPHATE/SOD BIPHOSPHATE (ADULT) ENEMA 133ML RECTAL PRN (08:45)
[2017-12-30] MEDS ORDERED: DEXTROSE 50% IN WATER 50 ML VIAL(D50) IV PUSH PRN (08:45)
[2017-12-30] MEDS ORDERED: GLUCAGON 1 MG/ML VIAL OTHER PRN (08:45)
--- NOTE | 2017-12-30 08:45 | PD.CAR.PN ---
CVT Progress Note Subjective/Hospital Course: A patient of Dr. Gianni Jones, Dr. Chuckie Peoples, with history of coronary artery disease, also nonsustained V-tach. C/O some increased fatigue and shortness of breath and underwent cardiac catheterization today for further evaluation. Her cath showed an ejection fraction of 50%, left main disease of 60%, proximal LAD 50%, mid distal LAD 50%, diagonal was 99%. The OM 50%. Pt initially seen 12/23 to evaluate for coronary artery bypass graft to the LAD, OM and diagonal. PAST MEDICAL HISTORY: Coronary artery disease with prior stent to the mid LAD in 2006, COPD, hyperlipidemia, hypertension, lower extremity edema, obesity, obstructive sleep apnea. She is unwilling to wear CPAP. She has a pacer in situ [employer]. recently found to have some nonsustained VT, TIA back in August. MRI of the brain in August was age related, no acute abnormality. 12/29 pt electively admitted for surgery CABG x 3, HUTCHINSON to LAD- good, SVG to OM - poor, SVG to D1 - good, EVH (R) - vein was fair with varicosities extubated after surgery pump time 67min, 2000cc crystalloid, 1000cc EBL, 500cc cell saver 12/30 up in chair, on nasal cannula some sinus tach, amiodarone increased, low dose BB started on ASA, statin leave chest tubes in , transfer to stepdown Objective: GENERAL: A&O x 3 SKIN: Warm and dry. prevena dressing to chest , yamila wrap to left leg HEAD: Normocephalic. EYES: No scleral icterus. No injection or drainage. NECK: Supple, trachea midline. No JVD or lymphadenopathy. CARDIOVASCULAR: Regular rate and rhythm without murmurs, gallops, or rubs. RESPIRATORY: Breath sounds equal bilaterally. No accessory muscle use. slight exp wheeze , GASTROINTESTINAL: Abdomen soft, non-tender, nondistended. MUSCULOSKELETAL: No cyanosis, or edema. BACK: Nontender without obvious deformity. No CVA tenderness. Vital Signs Date Time Temp Pulse Resp B/P (MAP) Pulse Ox O2 Delivery O2 Flow Rate FiO2 12/30/17 07:54 98 Nasal Cannula 3.00 12/30/17 03:38 98 Nasal Cannula 3.00 12/30/17 03:30 84 5/30/18 03:20 20 12/30/17 03:00 98.6 83 20 98 110/46 (67) 12/30/17 00:15 20 12/29/17 23:38 97 Nasal Cannula 3.00 12/29/17 23:25 84 12/29/17 23:00 98.8 82 20 93/51 (65) 97 111/45 (67) 12/29/17 22:05 97 Nasal Cannula 3.00 12/29/17 20:00 98.1 81 20 100/56 (71) 99 120/66 (84) 12/29/17 19:50 98 Nasal Cannula 4.00 12/29/17 19:00 70 12/29/17 16:34 98 Nasal Cannula 4.00 12/29/17 16:30 98 Nasal Cannula 4 12/29/17 16:30 98 Nasal Cannula 4.00 12/29/17 16:17 98.6 12/29/17 16:09 50 12/29/17 15:35 69 12/29/17 15:00 98.0 70 11 104/52 (69) 99 105/58 (74) 12/29/17 13:22 90 12/29/17 13:18 60 12/29/17 12:40 96.1 84 14 117/94 (102) 99 133/64 (87) 12/29/17 12:38 98.6 12/29/17 12:37 100 65 Labs: Laboratory Tests Test 12/30/17 05:05 White Blood Count 15.2 TH/MM3 (4.0-11.0) Red Blood Count 3.72 MIL/MM3 (4.00-5.30) Hemoglobin 10.7 GM/DL (11.6-15.3) Hematocrit 32.6 % (35.0-46.0) Mean Corpuscular Volume 87.5 FL (80.0-100.0) Mean Corpuscular Hemoglobin 28.7 PG (27.0-34.0) Mean Corpuscular Hemoglobin Concent 32.8 % (32.0-36.0) Red Cell Distribution Width 14.4 % (11.6-17.2) Platelet Count 170 TH/MM3 (150-450) Mean Platelet Volume 9.5 FL (7.0-11.0) Blood Urea Nitrogen 28 MG/DL (7-18) Creatinine 0.74 MG/DL (0.50-1.00) Random Glucose 108 MG/DL (74-106) Calcium Level 8.9 MG/DL (8.5-10.1) Magnesium Level 2.4 MG/DL (1.5-2.5) Sodium Level 140 MEQ/L (136-145) Potassium Level 4.6 MEQ/L (3.5-5.1) Chloride Level 107 MEQ/L (98-107) Carbon Dioxide Level 23.0 MEQ/L (21.0-32.0) Anion Gap 10 MEQ/L (5-15) Estimat Glomerular Filtration Rate 77 ML/MIN (>89) Result Diagram: 12/30/17 0505 12/30/17 0505 EKG: NSR no acute change (1) Hyperlipemia (2) S/P CABG x 3 Plan: ASA statin , BB OOB ambulate pulm toileting EF 35% / allergic to lisinopril ( angioedema ) transfer to stepdown (3) COPD (chronic obstructive pulmonary disease) Plan: resume home inhalers, has nebulizer at home (4) Hypertension Plan: controlled (5) Coronary artery disease Coreen Beal December 30, 2017 08:45
[2017-12-30] MEDS ORDERED: ASPIRIN 81 MG CHEW TAB CHEW SCH (09:00)
[2017-12-30] MEDS: METOPROLOL TARTRATE 25 MG TAB PO SCH ×2 (09:00→22:01)
[2017-12-30] MEDS ORDERED: MULTIVITAMIN TAB PO SCH (09:00)
[2017-12-30] MEDS: TIOTROPIUM BROMIDE 18 MCG INH INH SCH (09:09)
[2017-12-30] MEDS: AMIODARONE 200 MG TAB PO SCH ×2 (09:09→22:00)
[2017-12-30] MEDS: BUDESONIDE-FORMOTEROL 160/4.5 MCG INHALER INH SCH ×2 (09:09→21:59)
[2017-12-30] MEDS: MULTIVITAMINS/MINERALS THERAPEUTIC TAB PO SCH (09:09)
[2017-12-30] MEDS: PANTOPRAZOLE SOD 20 MG DELAYED RELEASE TAB PO SCH (09:10)
[2017-12-30] MEDS: PRAVASTATIN SOD 40 MG TAB PO SCH (09:10)
[2017-12-30] MEDS: ASPIRIN 81 MG CHEW TAB PO SCH (09:10)
[2017-12-30] MEDS: CITALOPRAM HYDROBROMIDE 20 MG TAB PO SCH (09:10)
[2017-12-30] MEDS: MAGNESIUM HYDROXIDE SUSP 30 ML CUP PO SCH (09:11)
[2017-12-30] MEDS: DOCUSATE SODIUM 100 MG CAP PO SCH ×2 (09:12→22:01)
[2017-12-30] MEDS: SODIUM CHLORIDE 0.9% FLUSH 10 ML FLUSH IV FLUSH SCH ×2 (09:12→22:02)
[2017-12-30] MEDS: INSULIN ASPART SUPPLEMENTAL SCALE SQ SCH ×4 (09:40→21:58)
--- NOTE | 2017-12-30 14:00 | EKG ---
Date Performed: 12/30/2017 Time Performed: 05:08:16 PTAGE: 72 years EKG: Sinus rhythm Anterolateral T wave changes are nonspecific Borderline ECG PREVIOUS TRACING : 12/23/2017 07.17 DOCTOR: Yunior Montoya Interpretating Date/Time 12/30/2017 13:58:43
[2017-12-30] MEDS: oxyCODONE/ACETAMINOPHEN 5 MG/325 MG TAB PO PRN ×2 (15:47→22:01)
[2017-12-30] MEDS: SENNOSIDES 8.6 MG TAB PO SCH (22:00)
[2017-12-31] VITALS (28 sets, daily range): BP systolic 112–146; BP diastolic 58–76; PULSE 61–106; RESP 14–19; TEMP 97.4–98.7; O2SAT 92–100
[2017-12-31] MEDS: oxyCODONE/ACETAMINOPHEN 5 MG/325 MG TAB PO PRN ×3 (01:11→19:25)
[2017-12-31] MEDS: INSULIN ASPART SUPPLEMENTAL SCALE SQ SCH ×5 (02:00→21:00)
[2017-12-31 05:30] LABS: AUTOMATED NEUTROPHIL # 9.2 TH/MM3 (1.8-7.7); BASOPHIL % 0.1 % (0.0-2.0); EOSINOPHIL % 0.1 % (0.0-4.0); HEMATOCRIT 29.8 % (35.0-46.0); HEMOGLOBIN 9.9 GM/DL (11.6-15.3); LYMPH % 9.1 % (9.0-44.0); MEAN CORPUSCULAR HEMOGLOBIN 28.8 PG (27.0-34.0); MEAN CORPUSCULAR HGB CONC 33.1 % (32.0-36.0); MEAN PLATELET VOLUME 9.5 FL (7.0-11.0); MONO % 6.6 % (0.0-8.0); MONOCYTE # 0.7 TH/MM3 (0-0.9); NEUT % 84.1 % (16.0-70.0); PLATELET COUNT 172 TH/MM3 (150-450); RED BLOOD COUNT 3.43 MIL/MM3 (4.00-5.30); RED CELL DISTRIBUTION WIDTH 14.4 % (11.6-17.2); WHITE BLOOD COUNT 10.9 TH/MM3 (4.0-11.0)
[2017-12-31 05:46] LABS: BICARBONATE 26.5 MEQ/L (21.0-32.0); CALCIUM 8.4 MG/DL (8.5-10.1); CREATININE 0.86 MG/DL (0.50-1.00); MAGNESIUM 2.4 MG/DL (1.5-2.5)
[2017-12-31] MEDS: RESP: ALBUTEROL 2.5 MG/IPRATROPIUM 0.5 MG NEB (SCH) NEB ×3 (08:35→21:01)
[2017-12-31] MEDS: TIOTROPIUM BROMIDE 18 MCG INH INH SCH (09:05)
[2017-12-31] MEDS: MAGNESIUM HYDROXIDE SUSP 30 ML CUP PO SCH (09:07)
[2017-12-31] MEDS: DOCUSATE SODIUM 100 MG CAP PO SCH ×2 (09:08→21:32)
[2017-12-31] MEDS: AMIODARONE 200 MG TAB PO SCH ×2 (09:08→21:33)
[2017-12-31] MEDS: POLYETHYLENE GLYCOL 17 GM PKG PO SCH (09:08)
[2017-12-31] MEDS: PANTOPRAZOLE SOD 20 MG DELAYED RELEASE TAB PO SCH (09:09)
[2017-12-31] MEDS: MULTIVITAMINS/MINERALS THERAPEUTIC TAB PO SCH (09:09)
[2017-12-31] MEDS: ASPIRIN 81 MG CHEW TAB PO SCH (09:09)
[2017-12-31] MEDS: PRAVASTATIN SOD 40 MG TAB PO SCH (09:09)
[2017-12-31] MEDS: CITALOPRAM HYDROBROMIDE 20 MG TAB PO SCH (09:09)
[2017-12-31] MEDS: METOPROLOL TARTRATE 25 MG TAB PO SCH ×2 (09:10→21:32)
[2017-12-31] MEDS: BUDESONIDE-FORMOTEROL 160/4.5 MCG INHALER INH SCH ×2 (09:10→21:31)
[2017-12-31] MEDS: SODIUM CHLORIDE 0.9% FLUSH 10 ML FLUSH IV FLUSH SCH ×2 (09:13→21:33)
--- NOTE | 2017-12-31 15:14 | PD.CAR.PN ---
CVT Progress Note Subjective/Hospital Course: A patient of Dr. Gianni Jones, Dr. Chuckie Peoples, with history of coronary artery disease, also nonsustained V-tach. C/O some increased fatigue and shortness of breath and underwent cardiac catheterization today for further evaluation. Her cath showed an ejection fraction of 50%, left main disease of 60%, proximal LAD 50%, mid distal LAD 50%, diagonal was 99%. The OM 50%. Pt initially seen 12/23 to evaluate for coronary artery bypass graft to the LAD, OM and diagonal. PAST MEDICAL HISTORY: Coronary artery disease with prior stent to the mid LAD in 2006, COPD, hyperlipidemia, hypertension, lower extremity edema, obesity, obstructive sleep apnea. She is unwilling to wear CPAP. She has a pacer in situ [employer]. recently found to have some nonsustained VT, TIA back in August. MRI of the brain in August was age related, no acute abnormality. 12/29 pt electively admitted for surgery CABG x 3, HUTCHINSON to LAD- good, SVG to OM - poor, SVG to D1 - good, EVH (R) - vein was fair with varicosities extubated after surgery pump time 67min, 2000cc crystalloid, 1000cc EBL, 500cc cell saver 12/30 up in chair, on nasal cannula some sinus tach, amiodarone increased, low dose BB started on ASA, statin leave chest tubes in , transfer to stepdown 12/31 doing well chest tube dc without difficulty remains in NSR continue BB , gentle diuresis Objective: GENERAL: A&O x 3 SKIN: Warm and dry. prevena dressing to chest, incision intact right leg HEAD: Normocephalic. EYES: No scleral icterus. No injection or drainage. / ecchymosis around eyelids NECK: Supple, trachea midline. No JVD or lymphadenopathy. CARDIOVASCULAR: Regular rate and rhythm without murmurs, gallops, or rubs. RESPIRATORY: Breath sounds equal bilaterally. No accessory muscle use. slightly diminished n bases / chest tube dc GASTROINTESTINAL: Abdomen soft, non-tender, nondistended. MUSCULOSKELETAL: No cyanosis, or edema. BACK: Nontender without obvious deformity. No CVA tenderness. Vital Signs Date Time Temp Pulse Resp B/P (MAP) Pulse Ox O2 Delivery O2 Flow Rate FiO2 12/31/17 14:00 89 12/31/17 13:00 93 12/31/17 12:00 88 12/31/17 11:00 98.3 92 17 112/59 (76) 94 12/31/17 11:00 88 12/31/17 11:00 94 Room Air 12/31/17 10:00 89 12/31/17 09:00 101 12/31/17 08:37 100 21 12/31/17 08:00 96 12/31/17 07:15 92 Room Air 12/31/17 07:15 98.7 97 16 120/58 (78) 92 12/31/17 07:00 92 12/31/17 06:00 91 12/31/17 05:00 92 12/31/17 04:00 66 12/31/17 04:00 98.0 89 16 138/58 (84) 97 12/31/17 03:48 94 Room Air 12/31/17 03:00 95 12/31/17 02:00 66 12/31/17 01:00 66 12/31/17 00:00 61 12/31/17 00:00 96 Room Air 12/31/17 00:00 97.4 100 14 115/65 (82) 94 12/30/17 23:00 61 12/30/17 22:00 64 12/30/17 21:00 73 12/30/17 20:00 92 Room Air 12/30/17 20:00 97.4 102 16 124/60 (81) 92 12/30/17 20:00 67 12/30/17 19:33 94 12/30/17 19:00 63 12/30/17 18:00 97 12/30/17 17:53 93 12/30/17 16:48 17 12/30/17 16:00 95 Labs: Laboratory Tests Test 12/31/17 04:45 White Blood Count 10.9 TH/MM3 (4.0-11.0) Red Blood Count 3.43 MIL/MM3 (4.00-5.30) Hemoglobin 9.9 GM/DL (11.6-15.3) Hematocrit 29.8 % (35.0-46.0) Mean Corpuscular Volume 87.0 FL (80.0-100.0) Mean Corpuscular Hemoglobin 28.8 PG (27.0-34.0) Mean Corpuscular Hemoglobin Concent 33.1 % (32.0-36.0) Red Cell Distribution Width 14.4 % (11.6-17.2) Platelet Count 172 TH/MM3 (150-450) Mean Platelet Volume 9.5 FL (7.0-11.0) Neutrophils (%) (Auto) 84.1 % (16.0-70.0) Lymphocytes (%) (Auto) 9.1 % (9.0-44.0) Monocytes (%) (Auto) 6.6 % (0.0-8.0) Eosinophils (%) (Auto) 0.1 % (0.0-4.0) Basophils (%) (Auto) 0.1 % (0.0-2.0) Neutrophils # (Auto) 9.2 TH/MM3 (1.8-7.7) Lymphocytes # (Auto) 1.0 TH/MM3 (1.0-4.8) Monocytes # (Auto) 0.7 TH/MM3 (0-0.9) Eosinophils # (Auto) 0.0 TH/MM3 (0-0.4) Basophils # (Auto) 0.0 TH/MM3 (0-0.2) CBC Comment DIFF FINAL Differential Comment Blood Urea Nitrogen 31 MG/DL (7-18) Creatinine 0.86 MG/DL (0.50-1.00) Random Glucose 109 MG/DL (74-106) Calcium Level 8.4 MG/DL (8.5-10.1) Magnesium Level 2.4 MG/DL (1.5-2.5) Sodium Level 139 MEQ/L (136-145) Potassium Level 5.0 MEQ/L (3.5-5.1) Chloride Level 103 MEQ/L (98-107) Carbon Dioxide Level 26.5 MEQ/L (21.0-32.0) Anion Gap 10 MEQ/L (5-15) Estimat Glomerular Filtration Rate 65 ML/MIN (>89) Result Diagram: 12/31/1744412/31/17444 (1) Hyperlipemia (2) S/P CABG x 3 Plan: ASA statin , BB OOB ambulate pulm toileting EF 35% / allergic to lisinopril ( angioedema ) (3) COPD (chronic obstructive pulmonary disease) Plan: home inhalers, has nebulizer at home nebs pulm toileting (4) Hypertension Plan: controlled (5) Coronary artery disease Coreen Beal December 31, 2017 15:14
[2017-12-31] MEDS ORDERED: FUROSEMIDE 20 MG/2 ML VIAL IV PUSH ONE (15:15)
[2017-12-31] MEDS: SENNOSIDES 8.6 MG TAB PO SCH (21:32)
[2018-01-01] VITALS (26 sets, daily range): BP systolic 81–153; BP diastolic 49–76; PULSE 80–104; RESP 16–18; TEMP 97.8–98.6; O2SAT 91–95
[2018-01-01] MEDS: oxyCODONE/ACETAMINOPHEN 5 MG/325 MG TAB PO PRN ×4 (01:49→20:50)
[2018-01-01] MEDS: INSULIN ASPART SUPPLEMENTAL SCALE SQ SCH ×4 (08:00→20:50)
[2018-01-01] MEDS: MAGNESIUM HYDROXIDE SUSP 30 ML CUP PO SCH (08:08)
[2018-01-01] MEDS: POLYETHYLENE GLYCOL 17 GM PKG PO SCH (08:08)
[2018-01-01] MEDS: DOCUSATE SODIUM 100 MG CAP PO SCH ×2 (08:08→20:50)
[2018-01-01] MEDS: MULTIVITAMINS/MINERALS THERAPEUTIC TAB PO SCH (08:09)
[2018-01-01] MEDS: ASPIRIN 81 MG CHEW TAB PO SCH (08:09)
[2018-01-01] MEDS: CITALOPRAM HYDROBROMIDE 20 MG TAB PO SCH (08:09)
[2018-01-01] MEDS: PANTOPRAZOLE SOD 20 MG DELAYED RELEASE TAB PO SCH (08:09)
[2018-01-01] MEDS: METOPROLOL TARTRATE 25 MG TAB PO SCH ×2 (08:09→20:50)
[2018-01-01] MEDS: PRAVASTATIN SOD 40 MG TAB PO SCH (08:09)
[2018-01-01] MEDS: AMIODARONE 200 MG TAB PO SCH ×2 (08:10→20:50)
[2018-01-01] MEDS: BUDESONIDE-FORMOTEROL 160/4.5 MCG INHALER INH SCH ×2 (08:14→20:49)
[2018-01-01] MEDS: SODIUM CHLORIDE 0.9% FLUSH 10 ML FLUSH IV FLUSH SCH ×2 (08:14→20:51)
[2018-01-01] MEDS: TIOTROPIUM BROMIDE 18 MCG INH INH SCH (08:14)
[2018-01-01] MEDS: RESP: ALBUTEROL 2.5 MG/IPRATROPIUM 0.5 MG NEB (SCH) NEB (08:14)
[2018-01-01] MEDS ORDERED: METO25TA3 PO (11:27)
[2018-01-01] MEDS ORDERED: NORC5TAB PO (11:27)
[2018-01-01] MEDS ORDERED: DOCU1CAP39 PO (11:27)
--- NOTE | 2018-01-01 11:35 | HHI.DS ---
Discharge Summary Admission Date December 29, 2017 at 05:24 Discharge Date: Jan 02, 2018 Admitting Diagnosis (1) Angina pectoris (2) Coronary artery disease (1) Depression Diagnosis: Principal ICD Codes: F32.9 - Depression Status: Acute (2) Blood loss anemia Diagnosis: Secondary ICD Codes: D50.0 - Iron deficiency anemia secondary to blood loss (chronic) (3) COPD (chronic obstructive pulmonary disease) Diagnosis: Principal ICD Codes: J44.9 - Chronic obstructive pulmonary disease, unspecified Status: Acute (4) Angina pectoris Diagnosis: Principal ICD Codes: I20.9 - Angina pectoris, unspecified (5) S/P CABG x 3 Diagnosis: Secondary ICD Codes: Z95.1 - Presence of aortocoronary bypass graft Procedures CABG x 3 12/29 HUTCHINSON to LAD- good SVG to OM - poor SVG to D1 - good EVH (R) - vein was fair with varicosities. Brief History A patient of Dr. Ginani Jones, Dr. Chuckie Peoples, with history of coronary artery disease, also nonsustained V-tach. C/O some increased fatigue and shortness of breath and underwent cardiac catheterization today for further evaluation. Her cath showed an ejection fraction of 50%, left main disease of 60%, proximal LAD 50%, mid distal LAD 50%, diagonal was 99%. The OM 50%. Pt initially seen 12/23 to evaluate for coronary artery bypass graft to the LAD, OM and diagonal. PAST MEDICAL HISTORY: Coronary artery disease with prior stent to the mid LAD in 2006, COPD, hyperlipidemia, hypertension, lower extremity edema, obesity, obstructive sleep apnea. She is unwilling to wear CPAP. She has a pacer in situ [employer]. recently found to have some nonsustained VT, TIA back in August. MRI of the brain in August was age related, no acute abnormality. CBC/BMP: 12/31/17 0445 12/31/17 0445 Significant Findings Laboratory Tests Test 12/29/17 14:29 12/30/17 05:05 12/31/17 04:45 Blood Urea Nitrogen 25 MG/DL (7-18) 28 MG/DL (7-18) 31 MG/DL (7-18) Random Glucose 157 MG/DL (74-106) 108 MG/DL (74-106) 109 MG/DL (74-106) Calcium Level 8.4 MG/DL (8.5-10.1) 8.4 MG/DL (8.5-10.1) Magnesium Level 2.7 MG/DL (1.5-2.5) Estimat Glomerular Filtration Rate 81 ML/MIN (>89) 77 ML/MIN (>89) 65 ML/MIN (>89) White Blood Count 15.2 TH/MM3 (4.0-11.0) Red Blood Count 3.72 MIL/MM3 (4.00-5.30) 3.43 MIL/MM3 (4.00-5.30) Hemoglobin 10.7 GM/DL (11.6-15.3) 9.9 GM/DL (11.6-15.3) Hematocrit 32.6 % (35.0-46.0) 29.8 % (35.0-46.0) Neutrophils (%) (Auto) 84.1 % (16.0-70.0) Neutrophils # (Auto) 9.2 TH/MM3 (1.8-7.7) Imaging Last Impressions Chest X-Ray 12/30/17 0500 Signed Impressions: CONCLUSION: Removal of the ET tube and NG tube, otherwise not significantly renetta nged. PE at Discharge 12/29 GENERAL: A&O x 3 SKIN: Warm and dry. prevena dressing ot chest , incision intact right leg HEAD: Normocephalic. EYES: No scleral icterus. No injection or drainage. NECK: Supple, trachea midline. No JVD or lymphadenopathy. CARDIOVASCULAR: Regular rate and rhythm without murmurs, gallops, or rubs. RESPIRATORY: Breath sounds equal bilaterally. No accessory muscle use. GASTROINTESTINAL: Abdomen soft, non-tender, nondistended. MUSCULOSKELETAL: No cyanosis, or edema. BACK: Nontender without obvious deformity. No CVA tenderness. Hospital Course 12/29 pt electively admitted for surgery CABG x 3, HUTCHINSON to LAD- good, SVG to OM - poor, SVG to D1 - good, EVH (R) - vein was fair with varicosities extubated after surgery pump time 67min, 2000cc crystalloid, 1000cc EBL, 500cc cell saver 12/30 up in chair, on nasal cannula some sinus tach, amiodarone increased, low dose BB started on ASA, statin leave chest tubes in , transfer to stepdown 12/31 doing well chest tube dc without difficulty remains in NSR continue BB , gentle diuresis 01/01 remains on room air will dc home in am remains in NSR needs BM . no LASHA 2/2 severe allergic reaction with angioedema Pt Condition on Discharge: Good Discharge Disposition: Disch w/ Home Health Serv Discharge Instructions DIET: Follow Instructions for: Heart Healthy Diet Activities you can perform: Full Weight Bearing, Shower Only-No Bath Activities to avoid: Strenuous Activity, Driving Additional Activity Instructio: no lifting > 8 lbs or gallon of milk Follow up Referrals: Cardiology - 4 Weeks with Gianni Jones MD PCP Follow-up - 2 Weeks with Ovidio Sherman MD [facility] - 2 Weeks with Coreen Beal New Orders: BASIC METABOLIC PROF - 2 Weeks CBC NO DIFF - 2 Weeks X-RAY CHEST PA & LAT - 2 Weeks New Medications: Hydrocodone-Acetaminophen ([place]) 5 Mg-325 Mg Tab 1 TAB PO Q4H PRN for PAIN, #40 TAB 0 Refills Docusate Sodium (Dok) 100 Mg Cap 100 MG PO BID for Constipation, #60 CAP 0 Refills Metoprolol Tartrate (Metoprolol Tartrate) 25 Mg Tab 25 MG PO BID for Blood Pressure Management, #60 TAB 2 Refills Continued Medications: Albuterol Neb (Albuterol Neb) 2.5 Mg/3 Ml Neb 2.5 MG NEB Q4HR NEB PRN for SHORTNESS OF BREATH, #60 NEBULE 5 Refills Aspirin (Aspirin) 81 Mg Chew 81 MG CHEW DAILY, TAB 0 Refills Citalopram (Citalopram) 20 Mg Tab 20 MG PO DAILY for Control Depression, #90 TAB 5 Refills Cyanocobalamin Inj (Cyanocobalamin Inj) 1,000 Mcg/Ml Inj 1000 MCG IM Q30D, #5 VIAL 5 Refills Fluticasone-Salmeterol Inh (Advair Diskus Inh) 250-50 Mcg/Blist Aer 1 PUFF INH BID, #1 INHALER 5 Refills Rinse mouth after use. Hydrochlorothiazide (Hydrochlorothiazide) 25 Mg Tab 25 MG PO DAILY, #30 TAB 0 Refills Lovastatin (Lovastatin) 40 Mg Tab 40 MG PO DAILY for Cholesterol Management, #30 TAB 0 Refills Multiple Vitamin (Multiple Vitamin) 1 Tab 1 TAB PO DAILY for Nutritional Supplement, TAB 0 Refills Omeprazole (Omeprazole) 20 Mg Tab 20 MG PO DAILY, #30 TAB 0 Refills Tiotropium-Olodaterol Inh (Stiolto Respimat Inh) 2.5-2.5 Mcg/Act Aero 2 PUFF INH DAILY for COPD, #1 INHALER 0 Refills Discontinued Medications: Metoprolol Tartrate (Metoprolol Tartrate) 50 Mg Tab 50 MG PO BID, #180 TAB 3 Refills Coreen Beal Jan 01, 2018 11:34
--- NOTE | 2018-01-01 11:36 | PD.CAR.PN ---
CVT Progress Note Subjective/Hospital Course: A patient of Dr. Gianni Jones, Dr. Chuckie Peoples, with history of coronary artery disease, also nonsustained V-tach. C/O some increased fatigue and shortness of breath and underwent cardiac catheterization today for further evaluation. Her cath showed an ejection fraction of 50%, left main disease of 60%, proximal LAD 50%, mid distal LAD 50%, diagonal was 99%. The OM 50%. Pt initially seen 12/23 to evaluate for coronary artery bypass graft to the LAD, OM and diagonal. PAST MEDICAL HISTORY: Coronary artery disease with prior stent to the mid LAD in 2006, COPD, hyperlipidemia, hypertension, lower extremity edema, obesity, obstructive sleep apnea. She is unwilling to wear CPAP. She has a pacer in situ [place]. recently found to have some nonsustained VT, TIA back in August. MRI of the brain in August was age related, no acute abnormality. 12/29 pt electively admitted for surgery CABG x 3, HUTCHINSON to LAD- good, SVG to OM - poor, SVG to D1 - good, EVH (R) - vein was fair with varicosities extubated after surgery pump time 67min, 2000cc crystalloid, 1000cc EBL, 500cc cell saver 12/30 up in chair, on nasal cannula some sinus tach, amiodarone increased, low dose BB started on ASA, statin leave chest tubes in , transfer to stepdown 12/31 doing well chest tube dc without difficulty remains in NSR continue BB , gentle diuresis 01/01 remains on room air feels well, wants to go home in am needs BM remains in NSR Objective: GENERAL: A&O x 3 SKIN: Warm and dry. prevena dressing to chest , incision intact to right leg HEAD: Normocephalic. EYES: No scleral icterus. No injection or drainage. NECK: Supple, trachea midline. No JVD or lymphadenopathy. CARDIOVASCULAR: Regular rate and rhythm without murmurs, gallops, or rubs. RESPIRATORY: Breath sounds equal bilaterally. No accessory muscle use. GASTROINTESTINAL: Abdomen soft, non-tender, nondistended. MUSCULOSKELETAL: No cyanosis, or edema. BACK: Nontender without obvious deformity. No CVA tenderness. Vital Signs Date Time Temp Pulse Resp B/P (MAP) Pulse Ox O2 Delivery O2 Flow Rate FiO2 01/01/18 11:00 89 01/01/18 11:00 98.4 88 18 137/76 (96) 92 01/01/18 10:00 81 01/01/18 09:00 86 01/01/18 08:17 94 21 01/01/18 08:00 100 01/01/18 07:15 98.4 101 17 125/64 (84) 95 01/01/18 07:15 85 01/01/18 06:00 80 01/01/18 05:00 88 01/01/18 04:00 98 01/01/18 04:00 97.9 90 16 116/64 (81) 92 01/01/18 03:00 89 01/01/18 02:00 92 01/01/18 01:00 90 01/01/18 00:00 98.3 92 16 135/65 (88) 95 01/01/18 00:00 97 12/31/17 23:00 98 12/31/17 22:00 92 12/31/17 21:02 96 12/31/17 21:00 100 12/31/17 20:00 94 12/31/17 20:00 98.2 93 16 146/76 (99) 96 12/31/17 19:00 94 12/31/17 18:00 95 12/31/17 17:00 106 12/31/17 16:00 91 12/31/17 15:59 89 12/31/17 15:00 98.1 89 19 138/63 (88) 12/31/17 14:00 89 12/31/17 13:00 93 12/31/17 12:00 88 Result Diagram: 12/31/17 0445 12/31/17 0445 (1) Hyperlipemia Plan: on statin (2) S/P CABG x 3 Plan: ASA statin , increase BB OOB ambulate pulm toileting EF 35% / allergic to lisinopril ( angioedema ) for dc in am (3) COPD (chronic obstructive pulmonary disease) Plan: home inhalers, has nebulizer at home nebs pulm toileting (4) Hypertension Plan: controlled (5) Coronary artery disease Coreen Beal Jan 01, 2018 11:36
[2018-01-01] MEDS: SENNOSIDES 8.6 MG TAB PO SCH (20:50)
[2018-01-02] VITALS (13 sets, daily range): BP systolic 118; BP diastolic 53; PULSE 73–92; RESP 18; TEMP 98–98.8; O2SAT 91–93
[2018-01-02] MEDS: INSULIN ASPART SUPPLEMENTAL SCALE SQ SCH (08:00)
[2018-01-02] MEDS: BUDESONIDE-FORMOTEROL 160/4.5 MCG INHALER INH SCH (08:46)
[2018-01-02] MEDS: MAGNESIUM HYDROXIDE SUSP 30 ML CUP PO SCH (08:46)
[2018-01-02] MEDS: TIOTROPIUM BROMIDE 18 MCG INH INH SCH (08:46)
[2018-01-02] MEDS: PRAVASTATIN SOD 40 MG TAB PO SCH (08:46)
[2018-01-02] MEDS: POLYETHYLENE GLYCOL 17 GM PKG PO SCH (08:46)
[2018-01-02] MEDS: AMIODARONE 200 MG TAB PO SCH (08:46)
[2018-01-02] MEDS: CITALOPRAM HYDROBROMIDE 20 MG TAB PO SCH (08:47)
[2018-01-02] MEDS: PANTOPRAZOLE SOD 20 MG DELAYED RELEASE TAB PO SCH (08:47)
[2018-01-02] MEDS: MULTIVITAMINS/MINERALS THERAPEUTIC TAB PO SCH (08:47)
[2018-01-02] MEDS: METOPROLOL TARTRATE 25 MG TAB PO SCH (08:47)
[2018-01-02] MEDS: DOCUSATE SODIUM 100 MG CAP PO SCH (08:47)
[2018-01-02] MEDS: ASPIRIN 81 MG CHEW TAB PO SCH (08:47)
[2018-01-02] MEDS: SODIUM CHLORIDE 0.9% FLUSH 10 ML FLUSH IV FLUSH SCH (09:00)
== END 2018-01-02 13:31 | disposition home health service (06) | DRG 236 ==
LOC: HSDI 05:24 → HCVI 12:45 → HCPC 12-30 10:12
PROVIDERS: ADMIT Thoracic Surgery (Cardiothoracic Vascular Surgery); ATTEND Thoracic Surgery (Cardiothoracic Vascular Surgery)
PROC: 06BP4ZZ Excision of Right Saphenous Vein, Percutaneous Endoscopic Approach (ICD-10-PCS; 2017-12-29)
PROC: 5A1221Z Performance of Cardiac Output, Continuous (ICD-10-PCS; 2017-12-29)
PROC: 02100Z9 Bypass Coronary Artery, One Artery from Left Internal Mammary, Open Approach (ICD-10-PCS; principal; 2017-12-29 07:15)
PROC: 021109W Bypass Coronary Artery, Two Arteries from Aorta with Autologous Venous Tissue, Open Approach (ICD-10-PCS; 2017-12-29 07:15)
DX: I25.119 Atherosclerotic heart disease of native coronary artery with unspecified angina pectoris (principal); J44.9 Chronic obstructive pulmonary disease, unspecified; D50.0 Iron deficiency anemia secondary to blood loss (chronic); F32.9 Major depressive disorder, single episode, unspecified; I83.93 Asymptomatic varicose veins of bilateral lower extremities; E78.5 Hyperlipidemia, unspecified; G47.33 Obstructive sleep apnea (adult) (pediatric); I10 Essential (primary) hypertension; Z88.8 Allergy status to other drugs, medicaments and biological substances; Z95.0 Presence of cardiac pacemaker; Z86.73 Personal history of transient ischemic attack (TIA), and cerebral infarction without residual deficits; Z95.5 Presence of coronary angioplasty implant and graft; Z79.82 Long term (current) use of aspirin
CPT/HCPCS: 71045; 76937; 80048; 82948; 83735; 85025; 85027; 86850; 86900; 86901; 86920; 93005; 94002; 94150; 94640; 94664; 94667; 94668; J0131; J0690; J1644; J1815; J1817; J1940; J2150; J2250; J2370; J2440; J2720; J2930; J3010; J3370; J3475; J3480; J7040; J7050; J7120; P9045; P9047